=== PATIENT | female | born 1960 | race Caucasian/White ===

== ENCOUNTER 2021-05-27 10:15 | Inpatient (IN) | payer OTHER ==
[2021-05-27] MEDS ORDERED: ASPIRIN 81 MG PO STA (10:37)
[2021-05-27] MEDS ORDERED: NITROGLYCERIN OINT 1 INCH/GM PACKET TOPICAL STA (10:37)
--- NOTE | 2021-05-27 10:40 | ED ---
General Adult HPI - General Chief complaint: Chest Pain Stated complaint: Abd/Chest Pain Time Seen by Provider: 05/27/21 10:31 Source: patient, RN notes reviewed, old records reviewed Mode of arrival: ambulatory Limitations: no limitations - History of Present Illness Initial comments: This is a 60-year-old female who came to the emergency department complaining of chest pain. Patient states started last night after she had dinner and she assumed it was the flu. Patient states the pain is in the center of her chest she was sweating and nauseated. Patient states she had some discomfort in the left arm but is not there anymore. Patient denies any radiation to the back or jaw. Patient denies any difficulty breathing shortness of breath. Patient denies any past medical history. Patient denies any family history. Patient denies any smoking history. Patient denies any recent fever chills or cough per patient denies any abdominal pain. Patient denies any other problems at this time. - Related Data Allergies Allergy/AdvReac Type Severity Reaction Status Date / Time No Known Allergies Allergy Verified 05/27/21 10:21 Review of Systems ROS Statement: Those systems with pertinent positive or pertinent negative responses have been documented in the HPI. ROS Other: All systems not noted in ROS Statement are negative. Past Medical History Past Medical History: No Reported History History of Any Multi-Drug Resistant Organisms: None Reported Past Surgical History: No Surgical Hx Reported Past Psychological History: No Psychological Hx Reported Smoking Status: Never smoker Past Alcohol Use History: None Reported Past Drug Use History: None Reported General Exam - General Exam Comments Initial Comments: GENERAL: Patient is well-developed and well-nourished. Patient is nontoxic and well- hydrated and is in mild distress. ENT: Neck is soft and supple. No significant lymphadenopathy is noted. Oropharynx is clear. Moist mucous membranes. Neck has full range of motion without eliciting any pain. EYES: The sclera were anicteric and conjunctiva were pink and moist. Extraocular movements were intact and pupils were equal round and reactive to light. Eyelids were unremarkable. PULMONARY: Unlabored respirations. Good breath sounds bilaterally. No audible rales rhonchi or wheezing was noted. CARDIOVASCULAR: There is a regular rate and rhythm without any murmurs gallops or rubs. ABDOMEN: Soft and nontender with normal bowel sounds. No palpable organomegaly was noted. There is no palpable pulsatile mass. SKIN: Skin is clear with no lesions or rashes and otherwise unremarkable. NEUROLOGIC: Patient is alert and oriented x3. Cranial nerves II through XII are grossly intact. Motor and sensory are also intact. Normal speech, volume and content. Symmetrical smile. MUSCULOSKELETAL: Normal extremities with adequate strength and full range of motion. No lower extremity swelling or edema. No calf tenderness. LYMPHATICS: No significant lymphadenopathy is noted PSYCHIATRIC: Normal psychiatric evaluation. Limitations: no limitations Course Vital Signs 05/27/21 05/27/21 10:22 10:34 Temperature 97.2 F L Pulse Rate 108 H 84 Respiratory 18 18 Rate Blood Pressure 120/76 118/86 O2 Sat by Pulse 98 100 Oximetry Medical Decision Making - Medical Decision Making EKG shows sinus tachycardia 104 bpm WA interval 230 QRS is 90 QT interval 360 QTC is 473. Patient's EKG showed ST segment elevation V3 V4 and V5 with slight ST segment depression in leads 3 and aVF. As soon as EKG was done I called a STEMI overhead. Patient was taken to the catheterization lab. - Lab Data Result diagrams: 05/27/21 10:48 05/27/21 10:48 Lab Results 05/27/21 05/27/21 05/27/21 Range/Units 10:48 10:48 10:48 WBC 13.5 H (3.8-10.6) k/uL RBC 4.42 (3.80-5.40) m/uL Hgb 14.2 (11.4-16.0) gm/dL Hct 41.2 (34.0-46.0) % MCV 93.2 (80.0-100.0) fL MCH 32.2 (25.0-35.0) pg MCHC 34.5 (31.0-37.0) g/dL RDW 13.1 (11.5-15.5) % Plt Count 322 (150-450) k/uL MPV 7.8 Neutrophils % 90 % Lymphocytes % 5 % Monocytes % 4 % Eosinophils % 1 % Basophils % 0 % Neutrophils # 12.2 H (1.3-7.7) k/uL Lymphocytes # 0.7 L (1.0-4.8) k/uL Monocytes # 0.5 (0-1.0) k/uL Eosinophils # 0.1 (0-0.7) k/uL Basophils # 0.0 (0-0.2) k/uL Sodium 137 (137-145) mmol/L Potassium 4.3 (3.5-5.1) mmol/L Chloride 105 (98-107) mmol/L Carbon Dioxide 24 (22-30) mmol/L Anion Gap 8 mmol/L BUN 19 H (7-17) mg/dL Creatinine 0.56 (0.52-1.04) mg/dL Est GFR (CKD-EPI)AfAm >90 (>60 ml/min/1.73 sqM) Est GFR (CKD-EPI)NonAf >90 (>60 ml/min/1.73 sqM) Glucose 165 H (74-99) mg/dL Calcium 9.9 (8.4-10.2) mg/dL Magnesium 1.9 (1.6-2.3) mg/dL Total Bilirubin 0.6 (0.2-1.3) mg/dL AST 261 H (14-36) U/L ALT 48 H (4-34) U/L Alkaline Phosphatase 213 H (38-126) U/L Total Protein 7.1 (6.3-8.2) g/dL Albumin 4.2 (3.5-5.0) g/dL Coronavirus (PCR) Not Detected (Not Detectd) Critical Care Time Critical Care Time: Yes Total Critical Care Time: 35 Disposition Clinical Impression: ST elevation myocardial infarction (STEMI) Disposition: ADMITTED IP TO THIS HOSP Referrals: None,Stated [Primary Care Provider] - 1-2 days Time of Disposition: 10:40
[2021-05-27] MEDS ORDERED: SODIUM CHLORIDE 0.9% 1,000 ML IV ONE (11:00)
[2021-05-27] MEDS ORDERED: fentaNYL (PF) 50 MCG/ML 2 ML AMP IV ONE (11:04)
[2021-05-27] MEDS: HEPARIN SODIUM 1,000 UN/ML (10ML VL) IV ONE ×3 (11:04→11:50)
[2021-05-27] MEDS ORDERED: MIDAZOLAM 2 MG/2 ML VIAL IV ONE (11:04)
[2021-05-27] MEDS ORDERED: LIDOCAINE 1% INJ 10MG/ML (20 ML MDV) SQ ONE (11:04)
[2021-05-27] MEDS ORDERED: VERAPAMIL SYRINGE (5 MG/10 ML) INTRAARTER ONE (11:05)
--- NOTE | 2021-05-27 11:07 | P.CRDCN ---
History of Present Illness Consult date: 05/27/21 History of present illness: HISTORY OF PRESENT ILLNESS: This is a 60-year-old female who denies any significant past medical history. 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 We have been asked to see the patient in consultation for STEMI. Patient examined at the bedside in the emergency room. Patient states yesterday she ate chicken Rober for dinner and shortly afterwards began to feel unwell. She states that she initially thought she had food poisoning as she was nauseous and diaphoretic. She states she began having pain in the middle of her chest that felt like a heavy pressure. She denies feeling short of breath. She denied having any radiation of the pain. Patient states the pain persisted most of the night and she decided to come to the emergency room for further evaluation. He should have an EKG performed upon arrival to the emergency room revealing ST elevation in anterior lateral leads and a STEMI was called. EKG reveals sinus mechanism with ST elevation in anterior lateral leads Chest xray available at the time of this dictation Laboratory data: Unavailable at the time of this dictation Patient takes no cardiac medications on an outpatient basis No previous echocardiogram or cardiac catheterization available for review REVIEW OF SYSTEMS: At the time of my exam: CONSTITUTIONAL: Denies fever or chills. HEENT: Denies blurred vision, vision changes, or eye pain. Denies hemoptysis CARDIOVASCULAR: Denies chest pain. Denies orthopnea. Denies PND. Denies palpitations RESPIRATORY: Denies shortness of breath. GASTROINTESTINAL: Denies abdominal pain. Denies nausea or vomiting. HEMATOLOGIC: Denies bleeding disorders. GENITOURINARY: Denies any blood in urine. SKIN: Denies pruitis. Denies rash. PHYSICAL EXAM: VITAL SIGNS: Reviewed. GENERAL: Well-developed in no acute distress. HEENT: Head is normocephalic. Pupils are equal, round. Sclerae anicteric. Mucous membranes of the mouth are moist. Neck supple. No JVD or thyromegaly LUNGS: Respirations even and unlabored. Lungs essentially clear to auscultation bilaterally. HEART: Regular rate and rhythm. S1 and S2 heard. ABDOMEN: Soft. Nondistended. Nontender. EXTREMITIES: Normal range of motion. No clubbing or cyanosis. Peripheral pulses intact. No lower extremity edema NEUROLOGIC: Awake and alert. Oriented x 3. ASSESSMENT: Anterolateral STEMI PLAN: Patient was evaluated in the ER after STEMI alert was activated. Patient was being transported to the color laboratory technician upon my arrival to the ER room. Per the ER nurse, the patient received aspirin in the ER but did not receive heparin bolus or lipitor. This was relayed to the color laboratory technician staff upon arrival to the color laboratory technician so patient can receive these medications MIRANDA. Patient agreeable to undergo emergent cardiac catheterization with Dr. Smart Will obtain 2D echo post cath Further recommendations pending patient course Nurse practitioner note has been reviewed by physician. Signing provider agrees with the documented findings, assessment, and plan of care. Past Medical History Past Medical History: No Reported History History of Any Multi-Drug Resistant Organisms: None Reported Past Surgical History: No Surgical Hx Reported Past Psychological History: No Psychological Hx Reported Smoking Status: Never smoker Past Alcohol Use History: None Reported Past Drug Use History: None Reported Medications and Allergies Allergies Allergy/AdvReac Type Severity Reaction Status Date / Time No Known Allergies Allergy Verified 05/27/21 10:21 Physical Exam Vitals: Vital Signs Temp Pulse Resp BP Pulse Ox 05/27/21 10:22 97.2 F L 108 H 18 120/76 98 Intake and Output 05/26/21 05/27/21 05/27/21 22:59 06:59 14:59 Other: Weight 39.463 kg Results Intake and Output 05/26/21 05/27/21 05/27/21 22:59 06:59 14:59 Other: Weight 39.463 kg Patient Weight 05/28/21 06:59 Weight 39.463 kg
[2021-05-27] MEDS ORDERED: ATORVASTATIN 80 MG TAB PO ONE (11:10)
[2021-05-27] MEDS ORDERED: HEPARIN SODIUM 1,000 UN/ML (10ML VL) IVP ONE (11:11)
[2021-05-27] MEDS ORDERED: NOREPINEPHRINE 4 MG in SODIUM CHLORIDE 0.9% 250 ML IV ONE (11:14)
[2021-05-27 11:15] LABS: Basophils % (A) 0 %; Eosinophils # (A) 0.1 k/uL (0-0.7); Eosinophils % (A) 1 %; HCT 41.2 % (34.0-46.0); HGB 14.2 gm/dL (11.4-16.0); Lymphocytes # (A) 0.7 k/uL (1.0-4.8); Lymphocytes % (A) 5 %; MCH 32.2 pg (25.0-35.0); MCHC 34.5 g/dL (31.0-37.0); MCV 93.2 fL (80.0-100.0); Mean Platelet Volume 7.8; Monocytes # (A) 0.5 k/uL (0-1.0); Monocytes % (A) 4 %; Neutrophils # (A) 12.2 k/uL (1.3-7.7); Neutrophils % (A) 90 %; Platelet Count 322 k/uL (150-450); RBC 4.42 m/uL (3.80-5.40); RDW 13.1 % (11.5-15.5); WBC 13.5 k/uL (3.8-10.6)
[2021-05-27 11:17] LABS: ALT 48 U/L (4-34); AST 261 U/L (14-36); African American GFR (CKD) >90 (>60 ml/min/1.73 sqM); Albumin 4.2 g/dL (3.5-5.0); Alkaline Phosphatase 213 U/L (38-126); Anion Gap 8 mmol/L; Blood Urea Nitrogen 19 mg/dL (7-17); Calcium 9.9 mg/dL (8.4-10.2); Carbon Dioxide 24 mmol/L (22-30); Chloride 105 mmol/L (98-107); Glucose 165 mg/dL (74-99); INR 0.9 (<1.2); Magnesium 1.9 mg/dL (1.6-2.3); Non-African American GFR(CKD) >90 (>60 ml/min/1.73 sqM); Potassium 4.3 mmol/L (3.5-5.1); Prothrombin Time 10.1 sec (9.0-12.0); Sodium 137 mmol/L (137-145); Total Bilirubin 0.6 mg/dL (0.2-1.3); Total Protein 7.1 g/dL (6.3-8.2)
[2021-05-27] MEDS ORDERED: PRASUGREL 10 MG TAB PO ONE (11:22)
[2021-05-27] MEDS ORDERED: ONDANSETRON 4 MG/2 ML VIAL IVP ONE (11:23)
[2021-05-27 11:30] LABS: Partial Thromboplastin Time 21.2 sec (22.0-30.0)
[2021-05-27] MEDS ORDERED: NITROGLYCERIN 1000MCG/10ML SYRINGE INTRAARTER ONE (11:30)
--- NOTE | 2021-05-27 11:32 | XR ---
EXAMINATION TYPE: XR chest 1V portable DATE OF EXAM: 05/27/2021 COMPARISON: NONE HISTORY: Shortness of breath and chest pain TECHNIQUE: Single frontal view of the chest is obtained. FINDINGS: There is no pleural effusion or pneumothorax seen. Question minimal patchy basilar density . The cardiac silhouette size is within normal limits. Interstitium appears prominently. Patient is r otated. There are overlying leads. The osseous structures are intact. IMPRESSION: There is some interstitial changes within the lungs, correlate for pneumonia, follow up suggested
[2021-05-27] MEDS ORDERED: IOPAMIDOL-370 125ML BTL INJ ONE (11:57)
[2021-05-27] MEDS ORDERED: NITROGLYCERIN-D5W PMX 50 MG in DEXTROSE/WATER 1 250ML.BAG IV ONE (11:59)
[2021-05-27] MEDS ORDERED: FUROSEMIDE 10 MG/ML 4 ML VIAL IV ONE (12:10)
[2021-05-27] MEDS ORDERED: NITROGLYCERIN-D5W PMX 50 MG in DEXTROSE/WATER 1 250ML.BAG IV SCH (12:15)
[2021-05-27 12:38] LABS: Glucose,Whole Blood 208 mg/dL (75-99)
[2021-05-27] MEDS ORDERED: FUROSEMIDE 10 MG/ML 4 ML VIAL IV STA (12:43)
--- NOTE | 2021-05-27 13:29 | XR ---
EXAMINATION TYPE: XR chest 1V portable DATE OF EXAM: 05/27/2021 COMPARISON: 05/27/2021 earlier exam INDICATION: Short of breath TECHNIQUE: Single frontal view of the chest is obtained. FINDINGS: The heart size is normal. The pulmonary vasculature is prominent. There is interval development of bilateral lung infiltrates. Correlate for ARDS and atypical pneumoni a IMPRESSION: 1. Diffuse increased infiltrates bilaterally, correlate for ARDS and atypical pneumonia
[2021-05-27] MEDS: NOREPINEPHRINE 4 MG in SODIUM CHLORIDE 0.9% 250 ML IV SCH (13:52)
[2021-05-27] MEDS: ONDANSETRON 4 MG/2 ML VIAL IVP PRN ×2 (13:52→18:58)
--- NOTE | 2021-05-27 14:45 | P.CNPUL ---
History of Present Illness Consult date: 05/27/21 Reason for consult: chest pain, abnormal CXR/CT Chief complaint: Chest pain. History of present illness: Pulmonary consult dated 05/27/2021. 60-year-old female presents to the emergency department on May 27, shruthi clark of chest pain. She saw Dr. Pinto in the emergency department. The patient was evaluated by cardiology, taken to the catheterization laboratory, and had a stent placed in her LAD. She is back in the intensive care unit. Currently, she is on BiPAP, with settings of IPAP 12, EPAP 6, and 60%. The patient was on IV nitroglycerin at 10 mcg/m. Unfortunately, her blood pressure was a bit low, and they were planning to potentially start norepinephrine. Apparently, the patient does not have any past medical history. The patient does not take any medications on a regular basis, and is a lifelong nonsmoker. White count 13.5, hemoglobin 14.2, hematocrit 41.2, platelet count 322,000. PT 10.1, INR 0.9, and PTT is 21.2. Sodium, potassium, chloride, and CO2 are all normal. Anion gap is normal. BUN is 19, with a creatinine 0.56. AST was 261 with an ALT of 48. Troponin was 12.3. Testing for coronavirus was negative. The patient was minute with a diagnosis of anterolateral ST segment elevation myocardial infarction. Chest x-ray, and my opinion show some mild fluid overload. Review of Systems REVIEW OF SYSTEMS: CONSTITUTIONAL: [Negative.] NEUROLOGIC: [ Negative.] HEENT: [ Negative.] CARDIAC: Chest pain. PULMONARY: [Negative.] GI: [Negative.] : [Negative.] RHEUMATOLOGIC: [ Negative.] IMMUNOLOGIC: [ Negative.] ENDOCRINE: [Negative. ] DERMATOLOGIC: [Negative.] Past Medical History Past Medical History: No Reported History History of Any Multi-Drug Resistant Organisms: None Reported Past Surgical History: No Surgical Hx Reported Past Psychological History: No Psychological Hx Reported Smoking Status: Never smoker Past Alcohol Use History: None Reported Past Drug Use History: None Reported Medications and Allergies Home Medications Medication Instructions Recorded Confirmed Type Unable To Assess [Unable to Assess] 05/27/21 05/27/21 History Allergies Allergy/AdvReac Type Severity Reaction Status Date / Time No Known Allergies Allergy Verified 05/27/21 11:31 Physical Exam Osteopathic Statement: *. No significant issues noted on an osteopathic structural exam other than those noted in the History and Physical/Consult. Vitals: Vital Signs Temp Pulse Resp BP Pulse Ox 05/27/21 13:50 124 H 24 96/67 95 05/27/21 13:40 118 H 23 96/75 95 05/27/21 13:30 115 H 24 67/50 95 05/27/21 13:20 112 H 19 67/50 91 L 05/27/21 13:10 118 H 80/61 91 L 05/27/21 13:00 124 H 34 H 93/72 90 L 05/27/21 12:50 128 H 22 93/72 93 L 05/27/21 12:40 97.6 F 125 H 34 H 106/73 84 L 05/27/21 12:34 129 H 33 H 84 L 05/27/21 10:34 84 18 118/86 100 05/27/21 10:22 97.2 F L 108 H 18 120/76 98 Intake and Output 05/26/21 05/27/21 05/27/21 22:59 06:59 14:59 Intake Total 522 Balance 522 Intake: IV 522 .9 kvo 20 Other: # Voids 1 Weight 39.463 kg No acute distress, BiPAP mask in place. The patient is oriented. Does look a bit pale. HEENT examination is grossly unremarkable. Neck supple. Full range of motion. No adenopathy thyromegaly or neck vein distention. Cardiovascular examination reveals regular rhythm rate. S1-S2 normal. No S3 or S4. No discernible murmur noted. Heart sounds are distant. Heart rate about 110 bpm. Lungs reveal mostly clear breath sounds. Scattered rhonchi and crackles are noted. Breath sounds equal bilaterally. Abdomen soft bowel sounds are heard. No masses or tenderness. Extremities are intact. No cyanosis clubbing or edema. Skin is without rash or lesion. Neurologic examination is brief but nonfocal. Results - Laboratory Findings CBC and BMP: 05/27/21 10:48 05/27/21 10:48 PT/INR, D-dimer PT 10.1 sec (9.0-12.0) 05/27/21 10:48 INR 0.9 (<1.2) 05/27/21 10:48 Abnormal lab findings: Abnormal Labs 05/27/21 05/27/21 05/27/21 10:48 10:48 10:48 WBC 13.5 H Neutrophils # 12.2 H Lymphocytes # 0.7 L APTT 21.2 L BUN 19 H Glucose 165 H POC Glucose (mg/dL) AST 261 H ALT 48 H Alkaline Phosphatase 213 H Troponin I 05/27/21 05/27/21 10:48 12:36 WBC Neutrophils # Lymphocytes # APTT BUN Glucose POC Glucose (mg/dL) 208 H AST ALT Alkaline Phosphatase Troponin I 12.300 H* - Diagnostic Findings Chest x-ray: image reviewed Assessment and Plan Assessment: Acute anterolateral ST segment elevation myocardial infarction, status post angiography, with stent placement, in the LAD. Mild congestive heart failure. Hypotension. No significant past medical history. Plan: Plan dated 05/27/2021. The patient's resting comfortably in the intensive care unit. The patient was getting both nitroglycerin, and norepinephrine. The nitroglycerin was held. She was hypotensive. We were going to give her some diuretic, but because of the hypotension, that will be held. We will continue to follow make recommendations where appropriate. Prognosis is guarded. No history of any lung issues. Time with Patient: Greater than 30
[2021-05-27] MEDS ORDERED: FUROSEMIDE 10 MG/ML 2 ML VIAL IV ONE (17:42)
[2021-05-27 17:49] LABS: Glucose,Whole Blood 123 mg/dL (75-99)
[2021-05-27] MEDS ORDERED: NITROGLYCERIN SL TABS 0.4 MG TAB SUBLINGUAL PRN (19:21)
[2021-05-27] MEDS ORDERED: ZOLPIDEM 5 MG TAB PO PRN (19:21)
[2021-05-27] MEDS ORDERED: MAG HYDROX/AL HYDROX/SIMETH 30 ML CUP PO PRN (19:21)
[2021-05-27] MEDS ORDERED: RX INFO: IV CONTRAST WAS GIVEN 1 EACH MISC MISCELLANE PRN (19:21)
[2021-05-27] MEDS ORDERED: ATROPINE SULFATE 0.1 MG/ML 10ML SYRINGE IV PRN (19:21)
--- NOTE | 2021-05-27 20:03 | P.CARDCATH ---
Description of Procedure: PROCEDURES PERFORMED: Left heart catheterization, bilateral coronary angiography, PCI proximal LAD with a 3.0 x 12 stent, wiring of circumflex, Impella CP placement, right femoral angiogram, right femoral arteriotomy closure with Perclose INDICATION: STEMI, cardiogenic shock HISTORY: Patient is a pleasant 60-year-old female who presented with chest pain which started last night and persisted throughout much of the night. Patient cannot get a sleep and finally came to emergency department he was found to have late presenting anterior STEMI. She was also found to be hypotensive in cardiogenic shock. CONSENT:I have discussed the risks, benefits and alternative therapies for the above-mentioned procedure and for both sedation/analgesia as well as necessary blood product administration, if indicated, as they pertain to this patient. The patient has indicated understanding and acceptance of the risks and procedures discussed. PROCEDURE: After the risks, benefits and alternatives of the above mentioned procedure explained in detail with the patient, informed consent was obtained. Patient was taken to the catheterization lab and prepped and draped in usual fashion. 1% lidocaine was used to anesthetize the right radial artery. A 6- [place] sheath was placed in the right radial artery using modified Seldinger technique. Left coronary angiography was performed with a 5-[place] JL 3.5 catheter. Left coronary angiography was performed with 100% LAD stenosis as well as what appear to be a thrombus in the circumflex and patient's blood pressure at the time 70s over 40s. Therefore decision made to place an Impella. Using micropuncture technique and ultrasonic guidance a 6-[place] sheath was placed and confirmed to be in the right femoral artery. Preclose was performed with 2 Perclose at the 2 and 10 Oclock position. A 14-[place] sheath was then placed. Next a 6-[place] pigtail was placed in the left ventricle and this was exchanged for a 0.018 support wire. Next the Impella CP device was inserted into the left ventricle and turned on. Heparin had been given for ACT greater than 250. Next a 6-[place] CLS 3.0 guide was used to engage the left main. A 0.014 BMW wire was advanced into the circumflex however on repeat imaging there was no circumflex thrombus and it appeared to have been embolized very distally. Therefore decision was made to treat the LAD. The 0.014 BMW wire was advanced into the distal LAD. Balloon angioplasty was performed with a 2.5 x 12 mm balloon. Next a 3.0 x 12 mm Xience BEVERLEY was placed. Repeat angiography showed excellent result. Preintervention there was 100% stenosis with IAM 0 flow and postintervention there was 0% stenosis with IAM 3 flow. The wire was pulled and final images were obtained. Femoral angiogram was performed through the sheath which showed that she is to be occlusive with minimal flow down the right leg. Therefore the patient was weaned down to P2 on the Impella and patient appeared to be tolerating well after 10 minutes with pressures 94/80. Therefore the decision was made to remove the Impella. The sheath was removed and Perclose was deployed with hemostasis achieved. Right coronary angiography was performed with a 5-[place] JR5 catheter in various views. A 5-[place] FR5 catheter was inserted into the left ventricle and pressure measurements were obtained. The right radial sheath was removed and a TR band was placed with hemostasis achieved. Patient was transported back to [facility] catheterization holding area with borderline blood pressures. Conscious Sedation: Patient was monitored under the direct supervision of vision of myself for conscious sedation using Versed and fentanyl for a total duration of 72 minutes HEMODYNAMICS: Ao: 80/67 LV: 66/11, LVEDP 18 (on Impella) SELECTIVE CORONARY ARTERIOGRAPHY: LEFT MAIN: The left main is a large caliber vessel which bifurcates into the LAD and circumflex. There is no significant stenosis. LEFT ANTERIOR DESCENDING CORONARY ARTERY: LAD is a large caliber vessel which wraps around to the apex. There is a 100% proximal LAD stenosis. LEFT CIRCUMFLEX CORONARY ARTERY: Left circumflex is a moderate caliber vessel with proximal circumflex 95% stenosis from a thrombus. RIGHT CORONARY ARTERY: The right coronary artery is a small caliber vessel which gives off a PDA and PLV branch and is the dominant vessel. There is no significant stenosis. FINAL IMPRESSION: 1. CAD as described above with 100% LAD stenosis and 95% circumflex stenosis felt to be related to embolization. 2. S/p PCI LAD with a 3.0 x 12mm Xience BEVERLEY, and s/p embolization of circumflex thrombus down stream into a small caliber distal OM branch 3. Cardiogenic shock PLAN: 1. Aggressive risk factor modification per most recent ACC/AHA guidelines. 2. Continue dual antiplatelets for 12 months. 3. Monitor closely in the ICU. Prognosis guarded.
--- NOTE | 2021-05-27 20:45 | P.HPIM ---
History of Present Illness H&P Date: 05/27/21 Chief Complaint: Chest Pain Patient is a 60-year-old female without significant past medical history presents to ER with complaints of chest pain. Patient states that last night she ate chicken Rober for dinner and since then she has been having nauseous and diaphoretic. Patient initially thought it flulike symptoms and food poisoning. Patient is still having heaviness in the chest mainly in the mid retrosternal and heavy pressure which made her come to ER today morning.. He denies any radiation of the pain. Denies any associated shortness of breath. No fever no chills. No cough or sputum production. Denies any recent illnesses. Patient had an EKG in the ER showed ST elevation in the anterior leads and STEMI team was activated. Chest x-ray showed there is some interstitial changes within the lungs. Correlate for pneumonia. Follow-up suggested. Laboratory data showed WBC 13.5 hemoglobin 14.1 platelets 322 lymphocytes 0.7 Sodium 137 potassium 4.3 chloride 105 bicarb is 24 BUN 19 and creatinine 0.56 AST 261 ALT 248 and alk phos 230 troponin 12.3 and coronavirus PCR not detected. Review of Systems Constitutional: Patient denies any fever or chills . No generalized weakness or weight loss. Abdomen: Patient denied nausea vomiting and diarrhea and abdominal pain. Cardiovascular: Patient did have chest pain associated with nausea and diaphoresis. No shortness of breath. No palpitations. No leg swelling.. Respiratory: patient denied any cough or sputum production. No shortness of breath Neurologic: Patient denied any numbness or tingling headache. Musculoskeletal: Patient denies any complaints of joint swelling or deformity. Skin: Negative Psychiatric: Negative Endocrine: No heat or cold intolerance. No recent weight gain. Genitourinary: No dysuria or hematuria. All other 14 point ROS negative except the above Past Medical History Past Medical History: No Reported History History of Any Multi-Drug Resistant Organisms: None Reported Past Surgical History: No Surgical Hx Reported Past Psychological History: No Psychological Hx Reported Smoking Status: Never smoker Past Alcohol Use History: None Reported Past Drug Use History: None Reported - Past Family History Father Family Medical History: Blood Disorder Additional Family Medical History / Comment(s): leukemia, ETOH/alcoholic Medications and Allergies Home Medications Medication Instructions Recorded Confirmed Type No Known Home Medications 05/27/21 05/27/21 History Allergies Allergy/AdvReac Type Severity Reaction Status Date / Time No Known Allergies Allergy Verified 05/27/21 11:31 Physical Exam Vitals: Vital Signs Temp Pulse Resp BP Pulse Ox 05/27/21 15:15 129 H 33 H 82/65 95 05/27/21 15:00 122 H 16 94/72 90 L 05/27/21 14:45 123 H 29 H 99/73 97 05/27/21 14:30 121 H 26 H 91/72 95 05/27/21 14:15 117 H 27 H 90/73 96 05/27/21 14:00 116 H 19 96/67 94 L 05/27/21 13:50 124 H 24 96/67 95 05/27/21 13:40 118 H 23 96/75 95 05/27/21 13:30 115 H 24 67/50 95 05/27/21 13:20 112 H 19 67/50 91 L 05/27/21 13:10 118 H 80/61 91 L 05/27/21 13:00 124 H 34 H 93/72 90 L 05/27/21 12:50 128 H 22 93/72 93 L 05/27/21 12:40 97.6 F 125 H 34 H 106/73 84 L 05/27/21 12:34 129 H 33 H 84 L 05/27/21 10:34 84 18 118/86 100 05/27/21 10:22 97.2 F L 108 H 18 120/76 98 Intake and Output 05/27/21 05/27/21 05/27/21 06:59 14:59 22:59 Intake Total 542 31.778 Output Total 0 0 Balance 542 31.778 Intake: IV 522 .9 kvo 20 Intake, IV Titration 20 31.778 Amount Norepinephrine 4 mg In 11.778 Sodium Chloride 0.9% 250 ml @ 0.05 MCG/KG/MIN 7. 518 mls/hr IV .Q24H [facility] Rx#:[id number] Sodium Chloride 0.9% 1, 20 20 000 ml @ 0 mls/hr IV .[facility] Rx#:[id number] Output: Urine 0 0 Other: # Voids 1 Weight 39.463 kg PHYSICAL EXAMINATION: Patient is lying in the bed comfortably, no acute distress, awake alert and oriented.. HEENT: Normocephalic. Neck is supple. Pupils reactive. Nostrils clear. Oral cavity is moist. Neck reveals no JVD, carotid bruits, or thyromegaly. CHEST EXAMINATION: Trachea is central. Symmetrical expansion. Bibasilar diminished sounds and crackles. No wheezing.. CARDIAC: Normal S1, S2 with no gallops. No murmurs ABDOMEN: Soft. Bowel sounds normal. No organomegaly. No abdominal bruits. Extremities: reveal no edema. No clubbing or cyanosis Neurologically awake, alert, oriented x3 with well-coordinated movements. No focal deficits noted Skin: No rash or skin lesions. Psychiatric: Cooperative. Nonsuicidal Musculoskeletal: No joint swelling or deformity. Normal range of motion. Results CBC & Chem 7: 05/27/21 10:48 05/27/21 10:48 Labs: Abnormal Lab Results - Last 24 Hours (Table) 05/27/21 05/27/21 05/27/21 Range/Units 10:48 10:48 10:48 WBC 13.5 H (3.8-10.6) k/uL Neutrophils # 12.2 H (1.3-7.7) k/uL Lymphocytes # 0.7 L (1.0-4.8) k/uL APTT 21.2 L (22.0-30.0) sec BUN 19 H (7-17) mg/dL Glucose 165 H (74-99) mg/dL POC Glucose (mg/dL) (75-99) mg/dL AST 261 H (14-36) U/L ALT 48 H (4-34) U/L Alkaline Phosphatase 213 H (38-126) U/L Troponin I (0.000-0.034) ng/mL 05/27/21 05/27/21 Range/Units 10:48 12:36 WBC (3.8-10.6) k/uL Neutrophils # (1.3-7.7) k/uL Lymphocytes # (1.0-4.8) k/uL APTT (22.0-30.0) sec BUN (7-17) mg/dL Glucose (74-99) mg/dL POC Glucose (mg/dL) 208 H (75-99) mg/dL AST (14-36) U/L ALT (4-34) U/L Alkaline Phosphatase (38-126) U/L Troponin I 12.300 H* (0.000-0.034) ng/mL Thrombosis Risk Factor Assmnt - DVT/VTE Prophylaxis DVT/VTE Prophylaxis: Pharmacologic Prophylaxis ordered Assessment and Plan Assessment: Acute ST elevated VA status post cardiac catheterization stent placement to the LAD. Acute hypoxic respiratory failure. Patient was on BiPAP post procedure.. Hypotension due to Cardiogenic shock. Requiring pressor support. Elevated liver enzymes Acute CHF. EF not known. DVT prophylaxis. Plan: Patient is being monitored in MICU. Was initially on BiPAP and transition to Ventimask now. Patient is being continued on pressor support with norepi nephrine. Nitro drip has been discontinued. Continue with aspirin, prasugrel and follow-up lipid panel. Repeat CBC and CMP. Cardiology and pulmonary is on board. Continue to follow closely. Time with Patient: Greater than 30
[2021-05-28] MEDS: NOREPINEPHRINE 4 MG in SODIUM CHLORIDE 0.9% 250 ML IV SCH (01:36)
[2021-05-28 03:45] LABS: Basophils % (A) 0 %; Eosinophils # (A) 0.2 k/uL (0-0.7); Eosinophils % (A) 1 %; HCT 42.6 % (34.0-46.0); HGB 14.2 gm/dL (11.4-16.0); Lymphocytes # (A) 1.3 k/uL (1.0-4.8); Lymphocytes % (A) 5 %; MCH 31.4 pg (25.0-35.0); MCHC 33.3 g/dL (31.0-37.0); MCV 94.5 fL (80.0-100.0); Monocytes # (A) 0.5 k/uL (0-1.0); Monocytes % (A) 2 %; Neutrophils # (A) 22.6 k/uL (1.3-7.7); Neutrophils % (A) 92 %; Platelet Count 305 k/uL (150-450); RBC 4.51 m/uL (3.80-5.40); RDW 12.6 % (11.5-15.5); WBC 24.7 k/uL (3.8-10.6)
[2021-05-28 03:54] LABS: Albumin 3.1 g/dL (3.5-5.0); Calcium 8.6 mg/dL (8.4-10.2); Potassium 3.9 mmol/L (3.5-5.1); Total Bilirubin 0.6 mg/dL (0.2-1.3); Total Protein 5.7 g/dL (6.3-8.2)
--- NOTE | 2021-05-28 09:10 | XR ---
EXAMINATION TYPE: XR chest 1V portable DATE OF EXAM: 05/28/2021 COMPARISON: 05/27/2021 HISTORY: Shortness of breath, CHF TECHNIQUE: Single frontal view of the chest is obtained. FINDINGS: There is diffuse interstitial and airspace opacity with partial consolidative opacities in the right lower lobe and left upper and lower lobes. There is been mild interval worsening compared to the previous. The graft the heart size is not enlarged and the pulmonary vasculature does not appe ar cephalized. There is no pneumothorax. The osseous structures are intact IMPRESSION: Mild interval worsening in the acute cardiopulmonary disease. Findings are nonspecific a nd could reflect an acute inflammatory process or pulmonary edema. Short-term follow-up and clinical correlation is recommended.
[2021-05-28] MEDS: ASPIRIN 81 MG PO SCH (10:02)
[2021-05-28] MEDS: PRASUGREL 10 MG TAB PO SCH (10:02)
[2021-05-28] MEDS ORDERED: FUROSEMIDE 10 MG/ML 4 ML VIAL IV STA (11:09)
--- NOTE | 2021-05-28 11:43 | P.PN ---
Subjective Progress Note Date: 05/28/21 Principal diagnosis: CAD Pulmonary consult dated 05/27/2021. 60-year-old female presents to the emergency department on May 27, complaining of chest pain. She saw Dr. Pinto in the emergency department. The patient was evaluated by cardiology, taken to the catheterization laboratory, and had a stent placed in her LAD. She is back in the intensive care unit. Currently, she is on BiPAP, with settings of IPAP 12, EPAP 6, and 60%. The patient was on IV nitroglycerin at 10 mcg/m. Unfortunately, her blood pressure was a bit low, and they were planning to potentially start norepinephrine. Apparently, the patient does not have any past medical history. The patient springer s not take any medications on a regular basis, and is a lifelong nonsmoker. White count 13.5, hemoglobin 14.2, hematocrit 41.2, platelet count 322,000. PT 10.1, INR 0.9, and PTT is 21.2. Sodium, potassium, chloride, and CO2 are all normal. Anion gap is normal. BUN is 19, with a creatinine 0.56. AST was 261 with an ALT of 48. Troponin was 12.3. Testing for coronavirus was negative. The patient was minute with a diagnosis of anterolateral ST segment elevation myocardial infarction. Chest x-ray, and my opinion show some mild fluid overload. Progress note dated 05/28/2021. 60-year-old female status post catheterization and stent placement in LAD. Currently, the patient's in the intensive care unit. She did not use BiPAP last night. She is on a nonrebreather mask. She's getting saline at KVO. She is on norepinephrine at 12 mcg/m. Her chest x-ray looks wet. The patient will get Lasix 40 mg IV push times one. White count 24.7, hemoglobin 14.2, hematocrit 42.6, platelet count 305,000. Sodium 134, potassium 3.9, chlorides 106, CO2 18, anion gap 10, BUN 26, creatinine 0.89. AST 695, ALT 86. Chest x-ray is consistent with fluid overload/CHF. Objective - Vital Signs Vital signs: Vital Signs Temp 98.9 F 05/28/21 08:00 Pulse 126 H 05/28/21 09:15 Resp 25 H 05/28/21 09:15 BP 89/62 11/06/21 09:15 Pulse Ox 93 L 05/28/21 09:15 Intake & Output 05/27/21 05/28/21 05/28/21 18:59 06:59 18:59 Intake Total 662.896 453.104 60 Output Total 0 600 0 Balance 662.896 -146.896 60 Weight 39.463 kg Intake: IV 582 240 60 .9 kvo 80 240 60 Intake, IV Titration 80.896 213.104 Amount Norepinephrine 4 mg In 40.896 213.104 Sodium Chloride 0.9% 250 ml @ 0.05 MCG/KG/MIN 7. 518 mls/hr IV .Q24H [facility] Rx#:[id number] Sodium Chloride 0.9% 1, 40 000 ml @ 0 mls/hr IV .[employer] [facility] Rx#:[id number] Output: Urine 0 600 0 Other: Voiding Method Bedpan Bedpan Bedpan Incontinent External Catheter # Voids 2 ABP, PAP, CO, CI - Last Documented Arterial Blood Pressure 99/51 - Exam No acute distress, the patient is wearing a nonrebreather mass. No obvious respiratory distress or difficulty. HEENT examination is grossly unremarkable. Neck supple. Full range of motion. No adenopathy thyromegaly or neck vein distention. Cardiovascular examination reveals regular rhythm rate. S1-S2 normal. No S3 or S4. No discernible murmur noted. Heart sounds are distant. Heart rate about 105 bpm. Lungs reveal basilar crackles. Coarse rhonchi are noted. No wheezes. Breath sounds equal bilaterally. Abdomen soft bowel sounds are heard. No masses or tenderness. Extremities are intact. No cyanosis clubbing or edema. Skin is without rash or lesion. Neurologic examination is brief but nonfocal. - Labs CBC & Chem 7: 05/28/21 03:25 05/28/21 03:25 Labs: Abnormal Lab Results - Last 24 Hours (Table) 05/27/21 05/27/21 05/27/21 Range/Units 10:48 12:36 17:47 WBC (3.8-10.6) k/uL Neutrophils # (1.3-7.7) k/uL Sodium (137-145) mmol/L Carbon Dioxide (22-30) mmol/L BUN (7-17) mg/dL Glucose (74-99) mg/dL POC Glucose (mg/dL) 208 H 123 H (75-99) mg/dL AST (14-36) U/L ALT (4-34) U/L Alkaline Phosphatase (38-126) U/L Troponin I 12.300 H* (0.000-0.034) ng/mL Total Protein (6.3-8.2) g/dL Albumin (3.5-5.0) g/dL 05/28/21 05/28/21 Range/Units 03:25 03:25 WBC 24.7 H (3.8-10.6) k/uL Neutrophils # 22.6 H (1.3-7.7) k/uL Sodium 134 L (137-145) mmol/L Carbon Dioxide 18 L (22-30) mmol/L BUN 26 H (7-17) mg/dL Glucose 138 H (74-99) mg/dL POC Glucose (mg/dL) (75-99) mg/dL AST 695 H (14-36) U/L ALT 86 H (4-34) U/L Alkaline Phosphatase 156 H (38-126) U/L Troponin I (0.000-0.034) ng/mL Total Protein 5.7 L (6.3-8.2) g/dL Albumin 3.1 L (3.5-5.0) g/dL Assessment and Plan Assessment: Acute anterolateral ST segment elevation myocardial infarction, status post angiography, with stent placement, in the LAD. Mild congestive heart failure. Hypotension. No significant past medical history. Plan: Plan dated 05/27/2021. The patient's resting comfortably in the intensive care unit. The patient was getting both nitroglycerin, and norepinephrine. The nitroglycerin was held. She was hypotensive. We were going to give her some diuretic, but because of the hypotension, that will be held. We will continue to follow make recommendations where appropriate. Prognosis is guarded. No history of any lung issues. Plan dated 05/28/2021. Currently, the patient's on norepinephrine at 12 mcg/m. The patient will get Lasix 40 mg IV push because a chest x-ray appears to show some fluid overload/CHF. In addition, patient remains on a nonrebreather mask. She is getting saline at KVO. Additional recommendations and suggestions are forthcoming. Prognosis is guarded. Labs, x-rays, and medications are all rev iewed. Time with Patient: Greater than 30
--- NOTE | 2021-05-28 12:42 | P.PN ---
Subjective HISTORY OF PRESENT ILLNESS: This is a 60-year-old female who denies any significant past medical history. Patient does not follow with a research leader. We have been asked to see the patient in consultation for STEMI. Patient examined at the bedside in the emergency room. Patient states yesterday she ate chicken Rober for dinner and shortly afterwards began to feel unwell. She states that she initially thought she had food poisoning as she was nauseous and diaphoretic. She states she began having pain in the middle of her chest that felt like a heavy pressure. She denies feeling short of breath. She denied having any radiation of the pain. Patient states the pain persisted most of the night and she decided to come to the emergency room for further evaluation. He should have an EKG performed upon arrival to the emergency room revealing ST elevation in anterior lateral leads and a STEMI was called. 05/28 Patient seen and examined. Patient denies any chest pain or pressure. Still feels nauseous. Have had some difficulties measuring urine output with prior Barba placement not being adequate. Blood pressures have been borderline however pressures by arterial line with a map mainly of approximately 65. She was placed on low dose of norepinephrine. AST and ALTs mildly elevated. She was given additional dose of Lasix this morning with chest x-ray consistent with fluid overload. Echo pending this morning. Remains sinus tachycardia with heart rates 120s. PHYSICAL EXAM: VITAL SIGNS: Reviewed. GENERAL: Well-developed in no acute distress. HEENT: Head is normocephalic. Pupils are equal, round. Sclerae anicteric. Mucous membranes of the mouth are moist. Neck supple. No JVD or thyromegaly LUNGS: Bilateral crackles throughout HEART: tachycardic Regular rate and rhythm. S1 and S2 heard. ABDOMEN: Soft. Nondistended. Nontender. EXTREMITIES: Normal range of motion. No clubbing or cyanosis. Peripheral pulses intact. No lower extremity edema NEUROLOGIC: Awake and alert. Oriented x 3. ASSESSMENT: 1. Anterolateral STEMI status post proximal LAD PCI likely embolic in etiology with additional thrombus noted and circumflex which had embolized distally 2. Cardiogenic shock, s/p Impella CP placement during catheterization however complicated by no flow to RLE 3. Sinus tachycardia, compensatory related to cardiogenic shock 4. Acute on chronic systolic heart failure PLAN: Patient with late presenting anterior lateral STEMI complicated by cardiogenic shock. It appears most likely embolic in etiology with additional thrombus noted in circumflex which was then embolized distally. She does appear to be in cardiogenic shock currently however we will avoid inotropes at this time. May consider starting if patient's urine output drops. She still appears to be in heart failure with pulmonary edema. Monitor response of Lasix. Patient has been on a low-dose of norepinephrine however we will discontinue and patient initially did not have any significant hypertension with systolics normally in the 90s to 100s. Goal map of around 60-65 and monitor response. Objective - Vital Signs Vital signs: Vital Signs Temp 98.9 F 05/28/21 08:00 Pulse 126 H 05/28/21 09:15 Resp 25 H 05/28/21 09:15 BP 89/62 05/28/21 09:15 Pulse Ox 93 L 05/28/21 09:15 Intake & Output 05/27/21 05/28/21 05/28/21 18:59 06:59 18:59 Intake Total 662.896 453.104 314 Output Total 0 600 0 Balance 662.896 -146.896 314 Weight 39.463 kg Intake: IV 582 240 60 .9 kvo 80 240 60 Intake, IV Titration 80.896 213.104 254 Amount Norepinephrine 4 mg In 40.896 213.104 254 Sodium Chloride 0.9% 250 ml @ 0.05 MCG/KG/MIN 7. 518 mls/hr IV .Q24H [facility] Rx#:[id number] Sodium Chloride 0.9% 1, 40 000 ml @ 0 mls/hr IV .[facility] Rx#:[id number] Output: Urine 0 600 0 Other: Voiding Method Bedpan Bedpan Bedpan Incontinent External Catheter # Voids 2 ABP, PAP, CO, CI - Last Documented Arterial Blood Pressure 99/51 - Labs CBC & Chem 7: 05/28/21 03:25 05/28/21 03:25 Labs: Abnormal Lab Results - Last 24 Hours (Table) 05/27/21 05/27/21 05/28/21 Range/Units 12:36 17:47 03:25 WBC 24.7 H (3.8-10.6) k/uL Neutrophils # 22.6 H (1.3-7.7) k/uL Sodium (137-145) mmol/L Carbon Dioxide (22-30) mmol/L BUN (7-17) mg/dL Glucose (74-99) mg/dL POC Glucose (mg/dL) 208 H 123 H (75-99) mg/dL AST (14-36) U/L ALT (4-34) U/L Alkaline Phosphatase (38-126) U/L Total Protein (6.3-8.2) g/dL Albumin (3.5-5.0) g/dL 05/28/21 Range/Units 03:25 WBC (3.8-10.6) k/uL Neutrophils # (1.3-7.7) k/uL Sodium 134 L (137-145) mmol/L Carbon Dioxide 18 L (22-30) mmol/L BUN 26 H (7-17) mg/dL Glucose 138 H (74-99) mg/dL POC Glucose (mg/dL) (75-99) mg/dL AST 695 H (14-36) U/L ALT 86 H (4-34) U/L Alkaline Phosphatase 156 H (38-126) U/L Total Protein 5.7 L (6.3-8.2) g/dL Albumin 3.1 L (3.5-5.0) g/dL
[2021-05-28 12:50] LABS: ABG Base Excess -3.8 mmol/L; ABG HCO3 20 mmol/L (21-25); ABG Oxygen Saturation 89.8 % (94-97); ABG PCO2 28 mmHg (35-45); ABG PH 7.46 (7.35-7.45); ABG TCO2 21 mmol/L (19-24)
[2021-05-28 12:51] LABS: ABG PO2 57 mmHg (83-108)
[2021-05-28 13:00] VITALS: BMI 19.5
[2021-05-28] MEDS: ONDANSETRON 4 MG/2 ML VIAL IVP PRN ×2 (13:01→18:55)
[2021-05-28 13:35] LABS: Chol/HDL Ratio 3.09 Ratio; HDL Cholesterol 66.7 mg/dL (40.00-60.00); LDL Cholesterol,Calculated 122.7 mg/dL (0.0-131.0); Triglycerides 82.8 mg/dL (0.00-149.00); VLDL Calculation 16.56 mg/dL (5.00-40.00)
[2021-05-28] MEDS: FUROSEMIDE 10 MG/ML 4 ML VIAL IV SCH ×2 (14:12→20:24)
--- NOTE | 2021-05-28 17:00 | ECHOF ---
Referral Reason:STEMI MEASUREMENTS -------- HEIGHT: 137.2 cm WEIGHT: 39.5 kg BP: RVIDd: 3.1 cm (< 3.3) IVSd: 0.9 cm (0.6 - 1.1) LVIDd: 2.7 cm (3.9 - 5.3) LVPWd: 1.0 cm (0.6 - 1.1) IVSs: 1.0 cm LVIDs: 2.4 cm LVPWs: 1.0 cm LA Diam: 3.2 cm (2.7 - 3.8) MV EXCURSION: 21.475 mm (> 18.000) MV EF SLOPE: 103 mm/s (70 - 150) EPSS: 1.6 cm MV E Trent: 0.49 m/s MV DecT: 162 ms MV A Trent: 0.49 m/s MV E/A Ratio: 0.99 RAP: 5.00 mmHg RVSP: 29.66 mmHg FINDINGS -------- Sinus rhythm. This was a techncally difficult study with suboptimal views, , Lumason utilized for enhancement of im ages. Left ventricular wall thickness is normal. There is severe global hypokinesis of LV . Overall lef t ventricular systolic function is severely impaired with, an EF < 20%. Basal Segment Rex o nly. The right ventricle is normal in size. The left atrial size is normal. The right atrial size is normal. The aortic valve is trileaflet, and appears structurally normal. No aortic stenosis or regurgitation. Mild mitral regurgitation is present. Mild tricuspid regurgitation present. Right ventricular systolic pressure is normal at < 35 mmHg. There is no pulmonic regurgitation present. The aortic root size is normal. There is no pericardial effusion. CONCLUSIONS -------- 1. Left ventricular wall thickness is normal. 2. There is severe global hypokinesis of LV . 3. Overall left ventricular systolic function is severely impaired with, an EF < 20%. 4. Basal Segment Rex only. 5. The right ventricle is normal in size. 6. The left atrial size is normal. 7. The right atrial size is normal. 8. The aortic valve is trileaflet, and appears structurally normal. No aortic stenosis or regurgitati on. 9. Mild mitral regurgitation is present. 10. Mild tricuspid regurgitation present. 11. There is no pulmonic regurgitation present. 12. The aortic root size is normal. 13. There is no pericardial effusion. CARDROOM MANAGER: Nely Marquez RDCS
[2021-05-28] MEDS ORDERED: IBUPROFEN 200 MG TAB PO STA (23:16)
[2021-05-29] MEDS: NOREPINEPHRINE 4 MG in SODIUM CHLORIDE 0.9% 250 ML IV SCH (02:10)
--- NOTE | 2021-05-29 06:44 | XR ---
EXAMINATION TYPE: XR chest 1V portable DATE OF EXAM: 05/29/2021 COMPARISON: 05/28/2021 HISTORY: Shortness of breath TECHNIQUE: Single frontal view of the chest is obtained. FINDINGS: There is slight improvement in the infiltrate in the right upper lung zone but interval wo rsening in the infiltrate in the left upper lung zone and in the lung bases bilaterally. The heart is not enlarged. There is no pneumothorax. The osseous structures are intact. IMPRESSION: Moderate interval worsening in the bilateral lung infiltrates. The question is raised of developing pleural effusions.
[2021-05-29] MEDS: FUROSEMIDE 10 MG/ML 4 ML VIAL IV SCH ×3 (06:53→20:58)
[2021-05-29 06:59] LABS: African American GFR (CKD) >90 (>60 ml/min/1.73 sqM); Anion Gap 6 mmol/L; Blood Urea Nitrogen 28 mg/dL (7-17); Calcium 8.2 mg/dL (8.4-10.2); Carbon Dioxide 25 mmol/L (22-30); Chloride 97 mmol/L (98-107); Glucose 100 mg/dL (74-99); Non-African American GFR(CKD) >90 (>60 ml/min/1.73 sqM); Potassium 4.4 mmol/L (3.5-5.1); Sodium 128 mmol/L (137-145)
[2021-05-29 07:41] LABS: Basophils % (A) 0 %; Eosinophils # (A) 0.1 k/uL (0-0.7); Eosinophils % (A) 1 %; HCT 39.4 % (34.0-46.0); HGB 13.2 gm/dL (11.4-16.0); Lymphocytes % (A) 7 %; MCH 31.1 pg (25.0-35.0); MCHC 33.5 g/dL (31.0-37.0); MCV 92.8 fL (80.0-100.0); Mean Platelet Volume 8.2; Monocytes # (A) 0.5 k/uL (0-1.0); Monocytes % (A) 4 %; Neutrophils % (A) 89 %; Platelet Count 217 k/uL (150-450); RBC 4.25 m/uL (3.80-5.40); RDW 12.6 % (11.5-15.5); WBC 14.7 k/uL (3.8-10.6)
[2021-05-29] MEDS: ASPIRIN 81 MG PO SCH (09:42)
[2021-05-29] MEDS: PRASUGREL 10 MG TAB PO SCH (09:42)
[2021-05-29] MEDS: MIDODRINE 5 MG TAB PO SCH ×2 (12:08→18:36)
--- NOTE | 2021-05-29 13:58 | P.PN ---
Subjective Progress Note Date: 05/29/21 Principal diagnosis: Shortness of breath, hypoxia On 05/29/2021 patient seen in follow-up in intensive care unit, she is awake and alert, she is on a nonrebreather mask, and she has been wearing BiPAP support intermittently, she remains on IV diuretics with Lasix 40 mg 3 times daily, she is -1.6 L net fluid balance, her chest x-ray today shows worsened pulmonary infiltrates. Her serum sodium is 128, potassium is 4.4, chloride is 97, BUN is 28 creatinine 0.68. White count is improved and is down to 14.7, hemoglobin is 13.2. Patient has significant chest pain. Patient has had some low blood pressures with systolic in the 70s and 80s, and diastolic in the 50s, she will be started on midodrine. Cardiology is following, does not recommend any initiation of inotropes unless the urine output significantly drops, patient has sinus tachycardia which is thought to be compensatory to cardiogenic shock. Cardiology recommends repeat arterial pressure around 55 or better as low as patient is asymptomatic. Patient continues on aspirin and Effient. Echocardiogram has been reviewed showing severe global hypokinesis and left ventricular systolic function of less than 20%. Objective - Vital Signs Vital signs: Vital Signs Temp 98.7 F 05/29/21 08:00 Pulse 110 H 05/29/21 11:00 Resp 28 H 05/29/21 11:00 BP 80/56 05/29/21 11:00 Pulse Ox 95 05/29/21 11:00 Intake & Output 05/28/21 05/29/21 05/29/21 19:59 06:59 18:59 Intake Total 340 Output Total 975 Balance -635 Weight Intake: IV 100 .9 kvo 100 Intake, IV Titration Amount Norepinephrine 4 mg In Sodium Chloride 0.9% 250 ml @ 0.05 MCG/KG/MIN 7. 518 mls/hr IV .Q24H [facility] Rx#:[id number] Oral 240 Output: Urine 975 Other: Voiding Method Bedpan ABP, PAP, CO, CI - Last Documented Arterial Blood Pressure 02/23 - Exam GENERAL EXAM: Alert, very pleasant, 52-year-old white female, on 100% nonrebrea ther mask alternating with BiPAP support with FiO2 of 60%, comfortable in no apparent distress. HEAD: Normocephalic/atraumatic. EYES: Normal reaction of pupils, equal size. Conjunctiva pink, sclera white. NOSE: Clear with pink turbinates. THROAT: No erythema or exudates. NECK: No masses, no JVD, no thyroid enlargement, no adenopathy. CHEST: No chest wall deformity. Symmetrical expansion. LUNGS: Equal air entry with bibasilar crackles CVS: Regular rate and rhythm, normal S1 and S2, no gallops, no murmurs, no rubs ABDOMEN: Soft, nontender. No hepatosplenomegaly, normal bowel sounds, no guard ing or rigidity. EXTREMITIES: No clubbing, no edema, no cyanosis, 2+ pulses and upper and lower extremities. MUSCULOSKELETAL: Muscle strength and tone normal. SPINE: No scoliosis or deformity SKIN: No rashes CENTRAL NERVOUS SYSTEM: Alert and oriented -3. No focal deficits, tone is normal in all 4 extremities. PSYCHIATRIC: Alert and oriented -3. Appropriate affect. Intact judgment and insight. - Labs CBC & Chem 7: 05/29/21 07:21 05/29/21 05:51 Labs: Abnormal Lab Results - Last 24 Hours (Table) 05/29/21 05/29/21 Range/Units 05:51 07:21 WBC 14.7 H (3.8-10.6) k/uL Neutrophils # 13.0 H (1.3-7.7) k/uL Sodium 128 L (137-145) mmol/L Chloride 97 L (98-107) mmol/L BUN 28 H (7-17) mg/dL Glucose 100 H (74-99) mg/dL Calcium 8.2 L (8.4-10.2) mg/dL Assessment and Plan Plan: Assessment: #1. Acute ST elevated myocardial infarction involving anterolateral wall, status post proximal LAD PCI, and this was thought to be embolic in nature #2. Cardiogenic shock, status post Impella placement however this had to be removed related to occlusion and no blood flow to right lower extremity #3. Acute chronic CHF, currently echocardiogram shows EF of less than 20% and severe global hypokinesia #4. Lifetime nonsmoker #5. Acute elevation of liver enzymes possibly related to CHF #6. Hyponatremia, likely hypervolemic due to acute systolic CHF Plan: Continue diuretics Continue BiPAP support and appropriate the mask May alternate the 2 Chest x-ray has been reviewed We will add midodrine for blood pressure support Per cardiology maintain mean of 55 Continue monitoring for worsening dyspnea, and hypoxia BiPAP support at bedtime Follow-up labs including electrolytes and renal profile the morning Follow-up chest x-ray Antiplatelet therapy per cardiology, currently on Effient and Aspirin I performed a history & physical examination of the patient and discussed their management with my nurse practitioner, Amy Vines. I reviewed the nurse practitioner's note and agree with the documented findings and plan of care. Lung sounds are positive for diffuse wheezes throughout the lung dias. The findings and the impression was discussed with the patient. I attest to the documentation by the nurse practitioner. Time with Patient: Less than 30
--- NOTE | 2021-05-29 15:35 | P.PN ---
Subjective HISTORY OF PRESENT ILLNESS: This is a 60-year-old female who denies any significant past medical history. Patient does not follow with a edi programmer. We have been asked to see the patient in consultation for STEMI. Patient examined at the bedside in the emergency room. Patient states yesterday she ate chicken Rober for dinner and shortly afterwards began to feel unwell. She states that she initially thought she had food poisoning as she was nauseous and diaphoretic. She states she began having pain in the middle of her chest that felt like a heavy pressure. She denies feeling short of breath. She denied having any radiation of the pain. Patient states the pain persisted most of the night and she decided to come to the emergency room for further evaluation. He should have an EKG performed upon arrival to the emergency room revealing ST elevation in anterior lateral leads and a STEMI was called. 05/28 Patient seen and examined. Patient denies any chest pain or pressure. Still feels nauseous. Have had some difficulties measuring urine output with prior Barba placement not being adequate. Blood pressures have been borderline however pressures by arterial line with a map mainly of approximately 65. She was placed on low dose of norepinephrine. AST and ALTs mildly elevated. She was given additional dose of Lasix this morning with chest x-ray consistent with fluid overload. Echo pending this morning. Remains sinus tachycardia with heart rates 120s. 05/29 Patient seen and examined. Patient still remains short of breath and orthopneic. Chest x-ray still shows volume overload. She did have a little bit more food to eat and is not quite as nauseous. Her sodium however did decrease. She has had good urine output with the Lasix. PHYSICAL EXAM: VITAL SIGNS: Reviewed. GENERAL: Well-developed in no acute distress. HEENT: Head is normocephalic. Pupils are equal, round. Sclerae anicteric. Mucous membranes of the mouth are moist. Neck supple. No JVD or thyromegaly LUNGS: Bilateral crackles throughout HEART: tachycardic Regular rate and rhythm. S1 and S2 heard. ABDOMEN: Soft. Nondistended. Nontender. EXTREMITIES: Normal range of motion. No clubbing or cyanosis. Peripheral pulses intact. No lower extremity edema NEUROLOGIC: Awake and alert. Oriented x 3. ASSESSMENT: 1. Anterolateral STEMI status post proximal LAD PCI likely embolic in etiology with additional thrombus noted and circumflex which had embolized distally 2. Cardiogenic shock, s/p Impella CP placement during catheterization however complicated by no flow to RLE 3. Sinus tachycardia, compensatory related to cardiogenic shock 4. Acute on chronic systolic heart failure PLAN: Patient with late presenting anterior lateral STEMI complicated by cardiogenic shock. It appears most likely embolic in etiology with additional thrombus noted in circumflex which was then embolized distally. Had attempted to avoid inotropes given recent WI however still significant pulmonary edema and crackles and therefore we will start inotropes with milrinone. If blood pressure drops patient may need temporary levo fed. Goal would be to diurese on inotropes and then hopefully be able to decrease inotropes once she has been diuresed. Her sodium however has been going the wrong way and still remains in pulmonary edema. Objective - Vital Signs Vital signs: Vital Signs Temp 98.7 F 05/29/21 08:00 Pulse 107 H 05/29/21 14:00 Resp 32 H 05/29/21 14:00 BP 80/55 05/29/21 14:00 Pulse Ox 95 05/29/21 14:00 Intake & Output 05/28/21 05/29/21 05/29/21 19:59 06:59 18:59 Intake Total 640 Output Total 1575 Balance -935 Weight Intake: IV 160 .9 kvo 160 Intake, IV Titration Amount Norepinephrine 4 mg In Sodium Chloride 0.9% 250 ml @ 0.05 MCG/KG/MIN 7. 518 mls/hr IV .Q24H [facility] Rx#:[id number] Oral 480 Output: Urine 1575 Other: Voiding Method Bedpan ABP, PAP, CO, CI - Last Documented Arterial Blood Pressure 02/23 - Labs CBC & Chem 7: 05/29/21 07:21 05/29/21 05:51 Labs: Abnormal Lab Results - Last 24 Hours (Table) 05/29/21 05/29/21 Range/Units 05:51 07:21 WBC 14.7 H (3.8-10.6) k/uL Neutrophils # 13.0 H (1.3-7.7) k/uL Sodium 128 L (137-145) mmol/L Chloride 97 L (98-107) mmol/L BUN 28 H (7-17) mg/dL Glucose 100 H (74-99) mg/dL Calcium 8.2 L (8.4-10.2) mg/dL
[2021-05-29] MEDS: MILRINONE-D5W PMX 20 MG in DEXTROSE/WATER 1 100ML.BAG IV SCH (17:18)
[2021-05-30] MEDS: MILRINONE-D5W PMX 20 MG in DEXTROSE/WATER 1 100ML.BAG IV SCH ×2 (03:35→23:18)
[2021-05-30 05:23] LABS: African American GFR (CKD) >90 (>60 ml/min/1.73 sqM); Anion Gap 3 mmol/L; Blood Urea Nitrogen 19 mg/dL (7-17); Carbon Dioxide 31 mmol/L (22-30); Chloride 92 mmol/L (98-107); Glucose 109 mg/dL (74-99); Non-African American GFR(CKD) >90 (>60 ml/min/1.73 sqM); Potassium 3.3 mmol/L (3.5-5.1); Sodium 126 mmol/L (137-145)
[2021-05-30 05:37] LABS: Basophils % (A) 0 %; Eosinophils # (A) 0.1 k/uL (0-0.7); Eosinophils % (A) 0 %; HCT 35.4 % (34.0-46.0); HGB 12.4 gm/dL (11.4-16.0); Lymphocytes # (A) 1.2 k/uL (1.0-4.8); Lymphocytes % (A) 11 %; MCH 31.8 pg (25.0-35.0); MCV 90.8 fL (80.0-100.0); Mean Platelet Volume 8.5; Monocytes # (A) 0.4 k/uL (0-1.0); Monocytes % (A) 4 %; Neutrophils % (A) 84 %; Platelet Count 218 k/uL (150-450); RBC 3.89 m/uL (3.80-5.40); RDW 13.1 % (11.5-15.5); WBC 10.7 k/uL (3.8-10.6)
[2021-05-30] MEDS: MIDODRINE 5 MG TAB PO SCH ×3 (06:24→18:15)
[2021-05-30] MEDS: FUROSEMIDE 10 MG/ML 4 ML VIAL IV SCH ×3 (06:24→20:11)
[2021-05-30] MEDS: POTASSIUM CHLORIDE 10 MEQ in WATER FOR INJECTION 1 100ML.BAG IVPB SCH ×3 (07:00→09:48)
--- NOTE | 2021-05-30 07:04 | XR ---
EXAMINATION TYPE: XR chest 1V DATE OF EXAM: 05/30/2021 COMPARISON: 05/29/2021 HISTORY: Shortness of breath FINDINGS: There are bilateral pleural effusions with bibasilar infiltrate. There is a diffuse interstitial pa ttern. Osseous structures stable. IMPRESSION: 1. Stable diffuse pleural-parenchymal changes correlate for CHF otherwise consider diffuse pneumonia.
--- NOTE | 2021-05-30 09:34 | P.PN ---
Subjective Progress Note Date: 05/30/21 60-year-old female presents to the emergency department on May 27, complaining of chest pain. She saw Dr. Pinto in the emergency department. The patient was evaluated by cardiology, taken to the catheterization laboratory, and had a stent placed in her LAD. She is back in the intensive care unit. Currently, she is on BiPAP, with settings of IPAP 12, EPAP 6, and 60%. The patient was on IV nitroglycerin at 10 mcg/m. Unfortunately, her blood pressure was a bit low, and they were planning to potentially start norepinephrine. Apparently, the patient does not have any past medical history. The patient does not take any medications on a regular basis, and is a lifelong nonsmoker. White count 13.5, hemoglobin 14.2, hematocrit 41.2, platelet count 322,000. PT 10.1, INR 0.9, and PTT is 21.2. Sodium, potassium, chloride, and CO2 are all normal. Anion gap is normal. BUN is 19, with a creatinine 0.56. AST was 261 with an ALT of 48. Troponin was 12.3. Testing for coronavirus was negative. The patient was minute with a diagnosis of anterolateral ST segment elevation myocardial infarction. Chest x-ray show some mild fluid overload. On 05/28/2021, the patient is status post catheterization and stent placement in LAD. Currently, the patient's in the intensive care unit. She did not use BiPAP last night. She is on a nonrebreather mask. She's getting saline at KVO. She is on norepinephrine at 12 mcg/m. Her chest x-ray looks wet. The patient will get Lasix 40 mg IV push times one. White count 24.7, hemoglobin 14.2, hematocrit 42.6, platelet count 305,000. Sodium 134, potassium 3.9, chlorides 106, CO2 18, anion gap 10, BUN 26, creatinine 0.89. AST 695, ALT 86. Chest x- ray is consistent with fluid overload/CHF. On 05/29/2021 patient seen in follow-up in intensive care unit, she is awake and alert, she is on a nonrebreather mask, and she has been wearing BiPAP support intermittently, she remains on IV diuretics with Lasix 40 mg 3 times daily, she is -1.6 L net fluid balance, her chest x-ray today shows worsened pulmonary infiltrates. Her serum sodium is 128, potassium is 4.4, chloride is 97, BUN is 28 creatinine 0.68. White count is improved and is down to 14.7, hemoglobin is 13.2. Patient has significant chest pain. Patient has had some low blood pressures with systolic in the 70s and 80s, and diastolic in the 50s, she will be started on midodrine. Cardiology is following, does not recommend any initiation of inotropes unless the urine output significantly drops, patient has sinus tachycardia which is thought to be compensatory to cardiogenic shock. Cardiology recommends repeat arterial pressure around 55 or better as low as patient is asymptomatic. Patient continues on aspirin and Effient. Echocardiogram has been reviewed showing severe global hypokinesis and left ventricular systolic function of less than 20%. On 05/30/2021, the patient remains in the intensive care unit post acute AL. The patient was also in cardiogenic shock. For now, she is on oxygen at 12 L per minute nasal cannula. A repeat chest x-ray was done this morning and the chest x-ray showed ongoing evidence of pulmonary edema and small left-sided pleural effusion. The volume status is probably better compared to past 2 days. Meanwhile, the patient is still being diuresed. The fluid balance is -2.3 L over the past 24 hours and the patient remains in a negative fluid balance. The same time, the patient is being diuresed with IV Lasix 40 mg IV every 8 hours. The blood pressure was soft yesterday and the patient was started on midodrine 5 mg by mouth 3 times a day. He is on aspirin. She is on Effient. No beta blockers have been initiated. Milrinone was started yesterday told by the cardiac output. This is on 0.375 mcg/kg per minute. Objective - Vital Signs Vital signs: Vital Signs Temp 98.5 F 05/30/21 08:00 Pulse 112 H 05/30/21 08:00 Resp 24 05/30/21 08:00 BP 85/56 05/30/21 08:00 Pulse Ox 96 05/30/21 08:00 Intake & Output 05/29/21 05/30/21 05/30/21 18:59 06:59 18:59 Intake Total 720 287.2 120 Output Total 2475 850 600 Balance -1755 -562.8 -480 Intake: IV 240 240 20 .9 kvo 240 240 20 Intake, IV Titration 47.2 100 Amount Milrinone-D5w Pmx 20 mg 47.2 In Dextrose/Water 1 100ml .bag @ Per Protocol IV . Q0M [facility] Rx#:[id number] Potassium Chloride 10 meq 100 In Water For Injection 1 100ml.bag @ 100 mls/hr IVPB Q1HR [facility] Rx#: [id number] Oral 480 Output: Urine 2475 850 600 Other: Voiding Method Bedpan Bedpan Bedpan ABP, PAP, CO, CI - Last Documented Arterial Blood Pressure 02/23 - Exam GENERAL EXAM: Alert, very pleasant, 52-year-old white female, on 12 L per minute nasal cannula HEAD: Normocephalic/atraumatic. EYES: Normal reaction of pupils, equal size. Conjunctiva pink, sclera white. NOSE: Clear with pink turbinates. THROAT: No erythema or exudates. NECK: No masses, no JVD, no thyroid enlargement, no adenopathy. CHEST: No chest wall deformity. Symmetrical expansion. LUNGS: Equal air entry with bibasilar crackles CVS: Regular rate and rhythm, normal S1 and S2, no gallops, no murmurs, no rubs ABDOMEN: Soft, nontender. No hepatosplenomegaly, normal bowel sounds, no guarding or rigidity. EXTREMITIES: No clubbing, no edema, no cyanosis, 1+ pulses and upper and lower extremities. MUSCULOSKELETAL: Muscle strength and tone normal. SPINE: No scoliosis or deformity SKIN: No rashes CENTRAL NERVOUS SYSTEM: Alert and oriented -3. No focal deficits, tone is normal in all 4 extremities. PSYCHIATRIC: Alert and oriented -3. Appropriate affect. Intact judgment and insight. - Labs CBC & Chem 7: 05/30/21 04:32 05/30/21 04:32 Labs: Abnormal Lab Results - Last 24 Hours (Table) 05/30/21 05/30/21 Range/Units 04:32 04:32 WBC 10.7 H (3.8-10.6) k/uL Neutrophils # 9.0 H (1.3-7.7) k/uL Sodium 126 L (137-145) mmol/L Potassium 3.3 L (3.5-5.1) mmol/L Chloride 92 L (98-107) mmol/L Carbon Dioxide 31 H (22-30) mmol/L BUN 19 H (7-17) mg/dL Glucose 109 H (74-99) mg/dL Calcium 8.0 L (8.4-10.2) mg/dL Assessment and Plan Plan: #1. Acute ST elevated myocardial infarction involving anterolateral wall, status post proximal LAD PCI and stenting . The patient also had an Impella placement, right femoral angiogram, right femoral arteriotomy and closure with perclose #2. Cardiogenic shock, status post Impella placement however this had to be removed related to occlusion and no blood flow to right lower extremity. The patient has adequate pulses in 4 extremities. The patient is currently on milrinone running at 0.375 mcg/kg per minute to augment the cardiac output along with Lasix 40 mg IV every 8 hours. The patient is producing adequate amount of urine output and the patient is a negative fluid balance for now. Electrolytes are being monitored. Renal function is stable for now. #3. Acute chronic CHF, currently echocardiogram shows EF of less than 20% and severe global hypokinesia noted RV is normal. No significant valvular abnormalities. No evidence of any pericardial effusion. #4. Acute hypoxic respiratory failure secondary to pulmonary edema, the patient remains on high flow oxygen 12 L. Earlier, the patient was utilizing IPAP on and off along with 100% RV the facemask. The patient is diuresing well. #5. Acute elevation of liver enzymes possibly related to CHF #6. Hyponatremia, likely hypervolemic due to acute systolic CHF, improved and the patient's sodium level at 126 Plan: Continue diuretics Continue milrinone for now to augment the cardiac output Wean off FiO2 gradually currently on 12 L of the chest x-ray still showing pulmonary edema BiPAP support at bedtime Follow-up labs including electrolytes and renal profile the morning Follow-up chest x-ray Antiplatelet therapy per cardiology, currently on Effient and Aspirin Keep the patient intensive care unit for now. We'll continue to follow Continue replacing potassium as the patient is being diuresed. Continue using incentive spirometer Keep the patient on milrinone the same dose We'll continue to follow
[2021-05-30] MEDS ORDERED: POTASSIUM CHLORIDE ER 20 MEQ TAB.ER PO STA (09:46)
[2021-05-30] MEDS: ASPIRIN 81 MG PO SCH (09:54)
[2021-05-30] MEDS: PRASUGREL 10 MG TAB PO SCH (09:54)
--- NOTE | 2021-05-30 10:46 | ECHOF ---
Referral Reason:re: bubble study, rule out PFO, embolic [place] MEASUREMENTS -------- HEIGHT: 147.3 cm WEIGHT: 40.4 kg BP: 104/66 IVSd: 1.0 cm (0.6 - 1.1) LVIDd: 3.0 cm (3.9 - 5.3) LVPWd: 1.2 cm (0.6 - 1.1) IVSs: 1.2 cm LVIDs: 2.0 cm LVPWs: 1.3 cm FINDINGS -------- Sinus rhythm. This was a technically adequate study. Limited Study The left ventricular size is normal. There is borderline concentric left ventricular hypertrophy. Overall left ventricular systolic function is severely impaired with, an EF between 25 - 30 %. Bas al anterior LV wall motion is akinetic. Basal anteroseptal LV wall motion is akinetic. Mid ante rior LV wall motion is akinetic. Mid lateral LV wall motion is akinetic. Mid anteroseptal LV wa ll motion is akinetic. Apical anterior LV wall motion is akinetic. Apical lateral LV wall motio n is akinetic. Apical inferior LV wall motion is akinetic. Apical septum LV wall motion is magaly etic. 5.0mg of Lumason was utilized for enhancement of images Possible Thrombus in LV [place] There is no pericardial effusion. CONCLUSIONS -------- 1. There is borderline concentric left ventricular hypertrophy. 2. Overall left ventricular systolic function is severely impaired with, an EF between 25 - 30 %. 3. Basal anterior LV wall motion is akinetic. 4. Basal anteroseptal LV wall motion is akinetic. 5. Mid anterior LV wall motion is akinetic. 6. Mid lateral LV wall motion is akinetic. 7. Mid anteroseptal LV wall motion is akinetic. 8. Apical anterior LV wall motion is akinetic. 9. Apical lateral LV wall motion is akinetic. 10. Apical inferior LV wall motion is akinetic. 11. Apical septum LV wall motion is akinetic. 12. Possible Thrombus in LV [place] MEDICAL FRONT DESK COORDINATOR: Brook Green RDCS
--- NOTE | 2021-05-30 17:09 | P.PN ---
Subjective Progress Note Date: 05/30/21 This is a 60-year-old female who was admitted to the hospital to anterolateral AK and cardiac shock. Patient had stent placement of the LAD. Patient's LV function is severely impaired, according to the echocardiogram. Patient is also dealing with hyponatremia. Patient is on nonrebreather. Getting IV Lasix. Chest x-ray showed ongoing evidence of pulmonary edema and small left-sided pleural effusion. Patient is -2.3 L of fluid balance over the last 24 hours. She is currently on Lasix . Patient is not on beta trevin because of hypotension. She was also put on metered in 5 mg by mouth 3 times daily. Patient prognosis still guarded. However, patient denies any chest pain or shortness of breath and seemed to be optimistic Objective - Vital Signs Vital signs: Vital Signs Temp 98.0 F 05/30/21 14:00 Pulse 112 H 05/30/21 15:00 Resp 5 L 05/30/21 16:00 BP 77/56 05/30/21 15:00 Pulse Ox 95 05/30/21 15:00 Intake & Output 05/29/21 05/30/21 05/30/21 18:59 06:59 18:59 Intake Total 720 287.2 700 Output Total 2475 850 1300 Balance -1755 -562.8 -600 Intake: IV 240 240 20 .9 kvo 240 240 20 Intake, IV Titration 47.2 200 Amount Milrinone-D5w Pmx 20 mg 47.2 In Dextrose/Water 1 100ml .bag @ Per Protocol IV . Q0M [facility] Rx#:[id number] Potassium Chloride 10 meq 200 In Water For Injection 1 100ml.bag @ 100 mls/hr IVPB Q1HR [facility] Rx#: [id number] Oral 480 480 Output: Urine 2475 850 1300 Other: Voiding Method Bedpan Bedpan Bedpan ABP, PAP, CO, CI - Last Documented Arterial Blood Pressure 02/23 - Exam GENERAL EXAM: Patient is alert and oriented and appears to be pale and cachectic HEENT: Normocephalic. Normal reaction of pupils, equal size, normal range of extraocular motion. No erythema or exudates in the throat. NECK: No masses, no nuchal rigidity. CHEST: No chest wall deformity. LUNGS: Equal air entry with no crackles or wheeze. HEART: 1 and S2 heard. Irregular ABDOMEN: No hepatosplenomegaly, normal bowel sounds, no guarding or rigidity. SKIN: No rashes CENTRAL NERVOUS SYSTEM: No focal deficits. EXTREMITIES: No cyanosis, clubbing or edema. - Labs CBC & Chem 7: 05/30/21 04:32 05/30/21 04:32 Labs: Abnormal Lab Results - Last 24 Hours (Table) 05/30/21 05/30/21 Range/Units 04:32 04:32 WBC 10.7 H (3.8-10.6) k/uL Neutrophils # 9.0 H (1.3-7.7) k/uL Sodium 126 L (137-145) mmol/L Potassium 3.3 L (3.5-5.1) mmol/L Chloride 92 L (98-107) mmol/L Carbon Dioxide 31 H (22-30) mmol/L BUN 19 H (7-17) mg/dL Glucose 109 H (74-99) mg/dL Calcium 8.0 L (8.4-10.2) mg/dL Assessment and Plan (1) Cardiac shock syndrome Current Visit: Yes Status: Acute Code(s): R57.0 - CARDIOGENIC SHOCK SNOMED Code(s): 94133594 (2) ST elevation myocardial infarction (STEMI) Current Visit: Yes Status: Acute Code(s): I21.3 - ST ELEVATION (STEMI) MYOCARDIAL INFARCTION OF UNSP SITE SNOMED Code(s): 31847853 (3) Cardiomyopathy Current Visit: Yes Status: Acute Code(s): I42.9 - CARDIOMYOPATHY, UNSP ECIFIED SNOMED Code(s): 56106480 (4) Acute systolic CHF (congestive heart failure) Current Visit: Yes Status: Acute Code(s): I50.21 - ACUTE SYSTOLIC (CONGESTIVE) HEART FAILURE SNOMED Code(s): 110474202 Plan: Clinically patient seemed to be feeling a little better. We'll continue with current management with blood pressure port and diuretics. Prognosis is guarded
[2021-05-30] MEDS: NOREPINEPHRINE 4 MG in SODIUM CHLORIDE 0.9% 250 ML IV SCH (19:40)
[2021-05-30] MEDS: FAMOTIDINE 20 MG/2 ML VIAL IV SCH (20:11)
--- NOTE | 2021-05-30 22:17 | P.PN ---
Subjective Progress Note Date: 05/28/21 Principal diagnosis: Acute ST elevated [place] Patient is a 60-year-old female without significant past medical history presents to ER with complaints of chest pain. Patient states that last night she ate chicken Rober for dinner and since then she has been having nauseous and diaphoretic. Patient initially thought it flulike symptoms and food poisoning. Patient is still having heaviness in the chest mainly in the mid retrosternal and heavy pressure which made her come to ER today morning.. He denies any radiation of the pain. Denies any associated shortness of breath. No fever no chills. No cough or sputum production. Denies any recent illnesses. Patient had an EKG in the ER showed ST elevation in the anterior leads and STEMI team was activated. Chest x-ray showed there is some interstitial changes within the lungs. Correlate for pneumonia. Follow-up suggested. Laboratory data showed WBC 13.5 hemoglobin 14.1 platelets 322 lymphocytes 0.7 Sodium 137 potassium 4.3 chloride 105 bicarb is 24 BUN 19 and creatinine 0.56 AST 261 ALT 248 and alk phos 230 troponin 12.3 and coronavirus PCR not detected. 05/28/2021 Patient is in the MICU. Lying in the bed. Awake alert oriented x3. Currently on Ventimask. Patient also shortness of breath and nausea. Currently off pressor support. 2D echocardiogram showed there is severe global hypokinesis of LV. Overall left ventricular systolic function is severely impaired with ejection fraction less than 20%. Chest x-ray showed mild interval worsening in the acute cardiopulmonary disease. Findings are nonspecific and could reflect an acute inflammatory process or pulmonary edema. Short-term follow-up and clinical correlation is recommended. Patient was started on Lasix IV 40 mg every 8 hourly as blood pressure tolerates. Blood pressure is on the lower side. No complaints of dizziness or lightheadedness. Denies any diarrhea. Patient is able to tolerate oral diet slowly. WBC 24.7 hemoglobin 14.1 platelets 305 BUN 26 and creatinine 0.89 AST 695 ALT 86 alk phos 156 and total cholesterol is 206 Cardiology and pulmonary is on board. Current medications reviewed. Objective - Vital Signs Vital signs: Vital Signs Temp 98.9 F 05/28/21 18:00 Pulse 105 H 05/28/21 18:00 Resp 21 05/28/21 18:00 BP 87/60 05/28/21 18:00 Pulse Ox 94 L 05/28/21 18:00 Intake & Output 05/27/21 05/28/21 05/28/21 18:59 06:59 18:59 Intake Total 662.896 282.524 3537 Output Total 0 600 2200 Balance 662.896 -146.896 -856 Weight 39.463 kg 39.463 kg Intake: IV 582 240 240 .9 kvo 80 240 240 Intake, IV Titration 80.896 213.104 254 Amount Norepinephrine 4 mg In 40.896 213.104 254 Sodium Chloride 0.9% 250 ml @ 0.05 MCG/KG/MIN 7. 518 mls/hr IV .Q24H [facility] Rx#:[id number] Sodium Chloride 0.9% 1, 40 000 ml @ 0 mls/hr IV .[facility] [facility] Rx#:[id number] Oral 850 Output: Urine 0 600 2200 Other: Voiding Method Bedpan Bedpan Bedpan Incontinent External Catheter # Voids 2 ABP, PAP, CO, CI - Last Documented Arterial Blood Pressure 02/23 - Exam PHYSICAL EXAMINATION: Patient is lying in the bed comfortably, no acute distress, awake alert and oriented.. HEENT: Normocephalic. Neck is supple. Pupils reactive. Nostrils clear. Oral cavity is moist. Neck reveals no JVD, carotid bruits, or thyromegaly. CHEST EXAMINATION: Trachea is central. Symmetrical expansion. Bibasilar minimal crackles and diminished. No wheezing.. CARDIAC: Normal S1, S2 with no gallops. No murmurs ABDOMEN: Soft. Bowel sounds normal. No organomegaly. No abdominal bruits. Extremities: reveal no edema. No clubbing or cyanosis Neurologically awake, alert, oriented x3 with well-coordinated movements. No focal deficits noted Skin: No rash or skin lesions. Psychiatric: Cooperative. Nonsuicidal Musculoskeletal: No joint swelling or deformity. Normal range of motion. - Labs CBC & Chem 7: 05/30/21 04:32 05/30/21 04:32 Labs: Abnormal Lab Results - Last 24 Hours (Table) 05/28/21 05/28/21 05/28/21 Range/Units 03:25 03:25 12:47 WBC 24.7 H (3.8-10.6) k/uL Neutrophils # 22.6 H (1.3-7.7) k/uL ABG pH 7.46 H (7.35-7.45) ABG pCO2 28 L (35-45) mmHg ABG pO2 57 L* (83-108) mmHg ABG HCO3 20 L (21-25) mmol/L ABG O2 Saturation 89.8 L (94-97) % Sodium 134 L (137-145) mmol/L Carbon Dioxide 18 L (22-30) mmol/L BUN 26 H (7-17) mg/dL Glucose 138 H (74-99) mg/dL AST 695 H (14-36) U/L ALT 86 H (4-34) U/L Alkaline Phosphatase 156 H (38-126) U/L Total Protein 5.7 L (6.3-8.2) g/dL Albumin 3.1 L (3.5-5.0) g/dL Cholesterol 206.00 H (0.00-200.00) mg/dL HDL Cholesterol 66.70 H (40.00-60.00) mg/dL Assessment and Plan Assessment: Acute ST elevated [place] status post cardiac catheterization stent placement to the LAD. Acute hypoxic respiratory failure. Patient was on BiPAP post proce dure..Currently on Ventimask Hypotension due to Cardiogenic shock. Off pressors now. Acute CHF with ejection fraction less than 20% with global hypokinesis. Elevated liver enzymes DVT prophylaxis. Plan: Patient is being monitored in MICU. Was initially on BiPAP and transition to Ventimask now. Patient is off pressor support now. Patient was started IV Lasix due to pulmonary vascular congestion and effusion.. Nitro drip has been discontinued. Continue with aspirin, prasugrel and statins. LDL 122. Repeat CBC and CMP. Cardiology and pulmonary is on board. Continue to follow closely. Time with Patient: Greater than 30
--- NOTE | 2021-05-30 22:19 | P.PN ---
Subjective Progress Note Date: 05/29/21 Principal diagnosis: Acute ST elevated [place] Patient is a 60-year-old female without significant past medical history presents to ER with complaints of chest pain. Patient states that last night she ate chicken Rober for dinner and since then she has been having nauseous and diaphoretic. Patient initially thought it flulike symptoms and food poisoning. Patient is still having heaviness in the chest mainly in the mid retrosternal and heavy pressure which made her come to ER today morning.. He denies any radiation of the pain. Denies any associated shortness of breath. No fever no chills. No cough or sputum production. Denies any recent illnesses. Patient had an EKG in the ER showed ST elevation in the anterior leads and STEMI team was activated. Chest x-ray showed there is some interstitial changes within the lungs. Correlate for pneumonia. Follow-up suggested. Laboratory data showed WBC 13.5 hemoglobin 14.1 platelets 322 lymphocytes 0.7 Sodium 137 potassium 4.3 chloride 105 bicarb is 24 BUN 19 and creatinine 0.56 AST 261 ALT 248 and alk phos 230 troponin 12.3 and coronavirus PCR not detected. 05/28/2021 Patient is in the MICU. Lying in the bed. Awake alert oriented x3. Currently on Ventimask. Patient also shortness of breath and nausea. Currently off pressor support. 2D echocardiogram showed there is severe global hypokinesis of LV. Overall left ventricular systolic function is severely impaired with ejection fraction less than 20%. Chest x-ray showed mild interval worsening in the acute cardiopulmonary disease. Findings are nonspecific and could reflect an acute inflammatory process or pulmonary edema. Short-term follow-up and clinical correlation is recommended. Patient was started on Lasix IV 40 mg every 8 hourly as blood pressure tolerates. Blood pressure is on the lower side. No complaints of dizziness or lightheadedness. Denies any diarrhea. Patient is able to tolerate oral diet slowly. WBC 24.7 hemoglobin 14.1 platelets 305 BUN 26 and creatinine 0.89 AST 695 ALT 86 alk phos 156 and total cholesterol is 206 Cardiology and pulmonary is on board. 05/29/2021 Patient is currently lying in the bed. Saturating well via nasal cannula at 12 L. Patient is diuresing well with IV Lasix. Patient states that her breathing is better today. Chest x-ray showed moderate interval worsening in the bilateral lung infiltrates. Possible developing pleural effusions. Patient was started midodrine due to hypotension. Laboratory data showed WBC trending down to 14.7 hemoglobin 13.1 platelets 217 Sodium 128 potassium 4.4 thyroid 97, BUN 28 and creatinine 0.68 Calcium 8.2 Current medications reviewed. Objective - Vital Signs Vital signs: Vital Signs Temp 98.7 F 05/29/21 08:00 Pulse 107 H 05/29/21 14:00 Resp 32 H 05/29/21 14:00 BP 80/55 05/29/21 14:00 Pulse Ox 95 05/29/21 14:00 Intake & Output 05/28/21 05/29/21 05/29/21 19:59 06:59 18:59 Intake Total 640 Output Total 1575 Balance -935 Weight Intake: IV 160 .9 kvo 160 Intake, IV Titration Amount Norepinephrine 4 mg In Sodium Chloride 0.9% 250 ml @ 0.05 MCG/KG/MIN 7. 518 mls/hr IV .Q24H [facility] Rx#:[id number] Oral 480 Output: Urine 1575 Other: Voiding Method Bedpan ABP, PAP, CO, CI - Last Documented Arterial Blood Pressure 02/23 - Exam PHYSICAL EXAMINATION: Patient is lying in the bed comfortably, no acute distress, awake alert and oriented.. HEENT: Normocephalic. Neck is supple. Pupils reactive. Nostrils clear. Oral cavity is moist. Neck reveals no JVD, carotid bruits, or thyromegaly. CHEST EXAMINATION: Trachea is central. Symmetrical expansion. Bibasilar crackles and diminished. No wheezing.. CARDIAC: Normal S1, S2 with no gallops. No murmurs ABDOMEN: Soft. Bowel sounds normal. No organomegaly. No abdominal bruits. Extremities: reveal no edema. No clubbing or cyanosis Neurologically awake, alert, oriented x3 with well-coordinated movements. No focal deficits noted Skin: No rash or skin lesions. Psychiatric: Cooperative. Nonsuicidal Musculoskeletal: No joint swelling or deformity. Normal range of motion. - Labs CBC & Chem 7: 05/30/21 04:32 05/30/21 04:32 Labs: Abnormal Lab Results - Last 24 Hours (Table) 05/29/21 05/29/21 Range/Units 05:51 07: WBC 14.7 H (3.8-10.6) k/uL Neutrophils # 13.0 H (1.3-7.7) k/uL Sodium 128 L (137-145) mmol/L Chloride 97 L (98-107) mmol/L BUN 28 H (7-17) mg/dL Glucose 100 H (74-99) mg/dL Calcium 8.2 L (8.4-10.2) mg/dL Assessment and Plan Assessment: Acute ST elevated [place] status post cardiac catheterization stent placement to the LAD. Acute hypoxic respiratory failure. Patient was on BiPAP post procedure..Curr ently on Ventimask Hypotension due to Cardiogenic shock. Off pressors now. Acute CHF with ejection fraction less than 20% with global hypokinesis. Hypovolemic hyponatremia due to diuresis. Elevated liver enzymes DVT prophylaxis. Plan: Patient is being monitored in MICU. Was initially on BiPAP and transition to Ventimask now. Patient is off pressor support now. Patient was started IV Lasix due to pulmonary vascular congestion and effusion.. Patient was started on milrinone drip due to significant pulmonary edema Nitro drip has been discontinued. Continue with aspirin, prasugrel and statins. LDL 122. Repeat CBC and CMP. Cardiology and pulmonary is on board. Continue to follow closely. Time with Patient: Greater than 30
--- NOTE | 2021-05-30 22:27 | P.PN ---
Subjective Progress Note Date: 05/30/21 Principal diagnosis: Acute ST elevated [place] Patient is a 60-year-old female without significant past medical history presents to ER with complaints of chest pain. Patient states that last night she ate chicken Rober for dinner and since then she has been having nauseous and diaphoretic. Patient initially thought it flulike symptoms and food poisoning. Patient is still having heaviness in the chest mainly in the mid retrosternal and heavy pressure which made her come to ER today morning.. He denies any radiation of the pain. Denies any associated shortness of breath. No fever no chills. No cough or sputum production. Denies any recent illnesses. Patient had an EKG in the ER showed ST elevation in the anterior leads and STEMI team was activated. Chest x-ray showed there is some interstitial changes within the lungs. Correlate for pneumonia. Follow-up suggested. Laboratory data showed WBC 13.5 hemoglobin 14.1 platelets 322 lymphocytes 0.7 Sodium 137 potassium 4.3 chloride 105 bicarb is 24 BUN 19 and creatinine 0.56 AST 261 ALT 248 and alk phos 230 troponin 12.3 and coronavirus PCR not detected. 05/28/2021 Patient is in the MICU. Lying in the bed. Awake alert oriented x3. Currently on Ventimask. Patient also shortness of breath and nausea. Currently off pressor support. 2D echocardiogram showed there is severe global hypokinesis of LV. Overall left ventricular systolic function is severely impaired with ejection fraction less than 20%. Chest x-ray showed mild interval worsening in the acute cardiopulmonary disease. Findings are nonspecific and could reflect an acute inflammatory process or pulmonary edema. Short-term follow-up and clinical correlation is recommended. Patient was started on Lasix IV 40 mg every 8 hourly as blood pressure tolerates. Blood pressure is on the lower side. No complaints of dizziness or lightheadedness. Denies any diarrhea. Patient is able to tolerate oral diet slowly. WBC 24.7 hemoglobin 14.1 platelets 305 BUN 26 and creatinine 0.89 AST 695 ALT 86 alk phos 156 and total cholesterol is 206 Cardiology and pulmonary is on board. 05/29/2021 Patient is currently lying in the bed. Saturating well via nasal cannula at 12 L. Patient is diuresing well with IV Lasix. Patient states that her breathing is better today. Chest x-ray showed moderate interval worsening in the bilateral lung infiltrates. Possible developing pleural effusions. Patient was started midodrine due to hypotension. Laboratory data showed WBC trending down to 14.7 hemoglobin 13.1 platelets 217 Sodium 128 potassium 4.4 thyroid 97, BUN 28 and creatinine 0.68, Calcium 8.2 05/30/2021 Patient is in MICU. Currently being continued on IV Lasix and midodrine. Also on milrinone drip. Blood pressure is at the borderline. Diuresing well. However sodium level dropped to 126 today. No complaints of chest pain. Shortness of breath is improving. Patient is able to tolerate 25% of the meal. Complains of nausea. No episodes of vomiting. No abdominal pain or diarrhea. No headache or dizziness or lightheadedness. No dysuria. Laboratory showed WBC trending down to 10.7 hemoglobin 12.4 and platelets 218 Sodium 126, potassium 3.3, chloride 92, BUN 19 and creatinine 0.6 Patient was given 20 mEq of potassium today. Current medications reviewed. Objective - Vital Signs Vital signs: Vital Signs Temp 97.9 F 05/30/21 16:00 Pulse 124 H 05/30/21 18:30 Resp 11 L 05/30/21 18:30 BP 90/62 05/30/21 18:30 Pulse Ox 92 L 05/30/21 18:30 Intake & Output 05/29/21 05/30/21 05/30/21 18:59 06:59 18:59 Intake Total 720 287.2 940 Output Total 2475 850 1800 Balance -1755 -562.8 -860 Intake: IV 240 240 20 .9 kvo 240 240 20 Intake, IV Titration 47.2 200 Amount Milrinone-D5w Pmx 20 mg 47.2 In Dextrose/Water 1 100ml .bag @ Per Protocol IV . Q0M [facility] Rx#:[id number] Potassium Chloride 10 meq 200 In Water For Injection 1 100ml.bag @ 100 mls/hr IVPB Q1HR [facility] Rx#: [id number] Oral 480 720 Output: Urine 2475 850 1800 Other: Voiding Method Bedpan Bedpan Bedpan ABP, PAP, CO, CI - Last Documented Arterial Blood Pressure 02/23 - Exam PHYSICAL EXAMINATION: Patient is lying in the bed comfortably, no acute distress, awake alert and oriented.. HEENT: Normocephalic. Neck is supple. Pupils reactive. Nostrils clear. Oral cavity is moist. Neck reveals no JVD, carotid bruits, or thyromegaly. CHEST EXAMINATION: Trachea is central. Symmetrical expansion. Bibasilar crackles and diminished. No wheezing.. CARDIAC: Normal S1, S2 with no gallops. No murmurs ABDOMEN: Soft. Bowel sounds normal. No organomegaly. No abdominal bruits. Extremities: reveal no edema. No clubbing or cyanosis Neurologically awake, alert, oriented x3 with well-coordinated movements. No focal deficits noted Skin: No rash or skin lesions. Psychiatric: Cooperative. Nonsuicidal Musculoskeletal: No joint swelling or deformity. Normal range of motion. - Labs CBC & Chem 7: 05/30/21 04:32 05/30/21 04:32 Labs: Abnormal Lab Results - Last 24 Hours (Table) 05/30/21 05/30/21 Range/Units 04:32 04:32 WBC 10.7 H (3.8-10.6) k/uL Neutrophils # 9.0 H (1.3-7.7) k/uL Sodium 126 L (137-145) mmol/L Potassium 3.3 L (3.5-5.1) mmol/L Chloride 92 L (98-107) mmol/L Carbon Dioxide 31 H (22-30) mmol/L BUN 19 H (7-17) mg/dL Glucose 109 H (74-99) mg/dL Calcium 8.0 L (8.4-10.2) mg/dL Assessment and Plan Assessment: Acute ST elevated [place] status post cardiac catheterization stent placement to the LAD. Acute hypoxic respiratory failure. Patient was on BiPAP post procedu re..Currently on [place] at 12L/min Hypotension due to Cardiogenic shock. Off pressors now. Acute CHF with ejection fraction less than 20% with global hypokinesis. Hypovolemic hyponatremia due to diuresis. Hypokalemia Elevated liver enzymes DVT prophylaxis. Plan: Patient is being monitored in MICU. Was initially on BiPAP and transition to Ventimask--->NC. Patient is off pressor support now. Patient was started IV Lasix due to pulmonary vascular congestion and effusion.. Patient was started on milrinone drip due to significant pulmonary edema Continue with aspirin, prasugrel and statins. LDL 122. Repeat CBC and CMP. Cardiology and pulmonary is on board. Continue to follow closely. Time with Patient: Greater than 30
[2021-05-30] MEDS ORDERED: IBUPROFEN 400 MG TAB PO STA (23:27)
[2021-05-31] MEDS: FUROSEMIDE 10 MG/ML 4 ML VIAL IV SCH ×3 (06:18→20:26)
[2021-05-31] MEDS: MIDODRINE 5 MG TAB PO SCH ×3 (06:19→17:04)
[2021-05-31 06:29] LABS: Basophils % (A) 0 %; Eosinophils # (A) 0.1 k/uL (0-0.7); Eosinophils % (A) 1 %; HCT 36.8 % (34.0-46.0); HGB 12.6 gm/dL (11.4-16.0); Lymphocytes % (A) 10 %; MCH 31.8 pg (25.0-35.0); MCHC 34.3 g/dL (31.0-37.0); MCV 92.8 fL (80.0-100.0); Mean Platelet Volume 8.6; Monocytes # (A) 0.6 k/uL (0-1.0); Monocytes % (A) 6 %; Neutrophils # (A) 8.1 k/uL (1.3-7.7); Neutrophils % (A) 82 %; Platelet Count 241 k/uL (150-450); RBC 3.97 m/uL (3.80-5.40); RDW 12.4 % (11.5-15.5); WBC 9.9 k/uL (3.8-10.6)
[2021-05-31 06:32] LABS: ALT 31 U/L (4-34); AST 66 U/L (14-36); African American GFR (CKD) >90 (>60 ml/min/1.73 sqM); Albumin 2.7 g/dL (3.5-5.0); Alkaline Phosphatase 141 U/L (38-126); Anion Gap 5 mmol/L; Blood Urea Nitrogen 15 mg/dL (7-17); Calcium 8.6 mg/dL (8.4-10.2); Carbon Dioxide 32 mmol/L (22-30); Chloride 93 mmol/L (98-107); Glucose 121 mg/dL (74-99); Non-African American GFR(CKD) >90 (>60 ml/min/1.73 sqM); Potassium 3.6 mmol/L (3.5-5.1); Sodium 130 mmol/L (137-145); Total Bilirubin 0.6 mg/dL (0.2-1.3); Total Protein 5.4 g/dL (6.3-8.2)
--- NOTE | 2021-05-31 06:39 | XR ---
EXAMINATION TYPE: XR chest 1V portable DATE OF EXAM: 05/31/2021 CLINICAL HISTORY: Difficulty breathing progress study. TECHNIQUE: Single AP portable upright view of the chest is obtained. COMPARISON: Chest x-ray from one day earlier and older studies. FINDINGS: Patchy bibasilar opacities remain present but improved. Increased reticulonodular markings left midlung redemonstrated but improved. Cardiac silhouette size stable and within normal limits. O verlying EKG leads. Underlying scoliotic curvature. IMPRESSION: Improving bibasilar and left midlung reticulonodular edema and/or infiltrates.
[2021-05-31] MEDS ORDERED: POTASSIUM CHLORIDE ER 20 MEQ TAB.ER PO STA (08:08)
[2021-05-31] MEDS: POTASSIUM CHLORIDE ER 20 MEQ TAB.ER PO SCH (08:17)
[2021-05-31] MEDS: ASPIRIN 81 MG PO SCH (08:17)
[2021-05-31] MEDS: FAMOTIDINE 20 MG/2 ML VIAL IV SCH (08:17)
[2021-05-31] MEDS: HEPARIN SODIUM,PORCINE/PF 5,000 UNIT/0.5 ML SYRINGE SQ SCH ×2 (08:17→20:26)
[2021-05-31] MEDS: PRASUGREL 10 MG TAB PO SCH (08:17)
--- NOTE | 2021-05-31 09:05 | P.PN ---
Subjective Progress Note Date: 05/31/21 60-year-old female presents to the emergency department on May 27, complaining of chest pain. She saw Dr. Pinto in the emergency department. The patient was evaluated by cardiology, taken to the catheterization laboratory, and had a stent placed in her LAD. She is back in the intensive care unit. C urrently, she is on BiPAP, with settings of IPAP 12, EPAP 6, and 60%. The patient was on IV nitroglycerin at 10 mcg/m. Unfortunately, her blood pressure was a bit low, and they were planning to potentially start norepinephrine. Apparently, the patient does not have any past medical history. The patient does not take any medications on a regular basis, and is a lifelong nonsmoker. White count 13.5, hemoglobin 14.2, hematocrit 41.2, platelet count 322,000. PT 10.1, INR 0.9, and PTT is 21.2. Sodium, potassium, chloride, and CO2 are all normal. Anion gap is normal. BUN is 19, with a creatinine 0.56. AST was 261 with an ALT of 48. Troponin was 12.3. Testing for coronavirus was negative. The patient was minute with a diagnosis of anterolateral ST segment elevation myocardial infarction. Chest x-ray show some mild fluid overload. On 05/28/2021, the patient is status post catheterization and stent placement in LAD. Currently, the patient's in the intensive care unit. She did not use BiPAP last night. She is on a nonrebreather mask. She's getting saline at KVO. She is on norepinephrine at 12 mcg/m. Her chest x-ray looks wet. The patient will get Lasix 40 mg IV push times one. White count 24.7, hemoglobin 14.2, hematocrit 42.6, platelet count 305,000. Sodium 134, potassium 3.9, chlorides 106, CO2 18, anion gap 10, BUN 26, creatinine 0.89. AST 695, ALT 86. Chest x- ray is consistent with fluid overload/CHF. On 05/29/2021 patient seen in follow-up in intensive care unit, she is awake and alert, she is on a nonrebreather mask, and she has been wearing BiPAP support intermittently, she remains on IV diuretics with Lasix 40 mg 3 times daily, she is -1.6 L net fluid balance, her chest x-ray today shows worsened pulmonary infiltrates. Her serum sodium is 128, potassium is 4.4, chloride is 97, BUN is 28 creatinine 0.68. White count is improved and is down to 14.7, hemoglobin is 13.2. Patient has significant chest pain. Patient has had some low blood p ressures with systolic in the 70s and 80s, and diastolic in the 50s, she will be started on midodrine. Cardiology is following, does not recommend any initiation of inotropes unless the urine output significantly drops, patient has sinus tachycardia which is thought to be compensatory to cardiogenic shock. Cardiology recommends repeat arterial pressure around 55 or better as low as patient is asymptomatic. Patient continues on aspirin and Effient. Echocardiogram has been reviewed showing severe global hypokinesis and left ventricular systolic function of less than 20%. On 05/30/2021, the patient remains in the intensive care unit post acute TX. The patient was also in cardiogenic shock. For now, she is on oxygen at 12 L per minute nasal cannula. A repeat chest x-ray was done this morning and the chest x-ray showed ongoing evidence of pulmonary edema and small left-sided pleural effusion. The volume status is probably better compared to past 2 days. Meanwhile, the patient is still being diuresed. The fluid balance is -2.3 L over the past 24 hours and the patient remains in a negative fluid balance. The same time, the patient is being diuresed with IV Lasix 40 mg IV every 8 hours. The blood pressure was soft yesterday and the patient was started on midodrine 5 mg by mouth 3 times a day. He is on aspirin. She is on Effient. No beta blockers have been initiated. Milrinone was started yesterday told by the cardiac output. This is on 0.375 mcg/kg per minute. The patient is seen today 05/31/2021 in follow-up in the intensive care unit. She is post cardiac infarction in cardiogenic shock. The plan may be to return to the [facility] later today. She is currently sitting up in a chair at the bedside. Awake and alert in no acute distress. Denies any chest pain currently. She is remaining in sinus rhythm to sinus tach. She did not utilize the BiPAP last evening which is set at 12/6 and 60% FiO2. She is currently on 4 L/m per nasal cannula. She remains on milrinone drip at 0.375 mcg/kg/m. 0.9 normal saline at 20 miles per hour. Her potassium is being replaced. She really remains on IV Lasix every 8 hours. White count 9.9. Hemoglobin 12.6. Sodium 1:30. Potassium 3.6. Bicarb 32. Creatinine 0.62. Glucose 121. AST 66, ALT is 31. Albumin 2.7. Remains on heparin for DVT prophylaxis. Remains on Effient and aspirin. X-rays showing improved aeration in the mid left lung and bibasilar edema. Objective - Vital Signs Vital signs: Vital Signs Temp 99.1 F 05/31/21 04:00 Pulse 111 H 05/31/21 07:30 Resp 18 05/31/21 07:30 BP 84/64 05/31/21 07:30 Pulse Ox 96 05/31/21 07:30 Intake & Output 05/30/21 05/31/21 05/31/21 18:59 06:59 18:59 Intake Total 940 550.5 20 Output Total 1800 850 200 Balance -860 -299.5 -180 Weight 40.6 kg Intake: IV 20 220 20 .9 kvo 20 220 20 Intake, IV Titration 200 90.5 Amount Milrinone-D5w Pmx 20 mg 90.5 In Dextrose/Water 1 100ml .bag @ Per Protocol IV . Q0M [facility] Rx#:[id number] Potassium Chloride 10 meq 200 In Water For Injection 1 100ml.bag @ 100 mls/hr IVPB Q1HR [facility] Rx#: [id number] Oral 720 240 Output: Urine 1800 850 200 Other: Voiding Method Bedpan Bedpan ABP, PAP, CO, CI - Last Documented Arterial Blood Pressure 02/23 - Exam GENERAL EXAM: Alert, very pleasant, 60-year-old female, on 4 L per minute nasal cannula HEAD: Normocephalic/atraumatic. EYES: Normal reaction of pupils, equal size. Conjunctiva pink, sclera white. NOSE: Clear with pink turbinates. THROAT: No erythema or exudates. NECK: No masses, no JVD, no thyroid enlargement, no adenopathy. CHEST: No chest wall deformity. Symmetrical expansion. LUNGS: Equal air entry with bibasilar crackles CVS: Regular rate and rhythm, normal S1 and S2, no gallops, no murmurs, no rubs ABDOMEN: Soft, nontender. No hepatosplenomegaly, normal bowel sounds, no guarding or rigidity. EXTREMITIES: No clubbing, no edema, no cyanosis, 1+ pulses and upper and lower extremities. MUSCULOSKELETAL: Muscle strength and tone normal. SPINE: No scoliosis or deformity SKIN: No rashes CENTRAL NERVOUS SYSTEM: Alert and oriented -3. No focal deficits, tone is normal in all 4 extremities. PSYCHIATRIC: Alert and oriented -3. Appropriate affect. Intact judgment and insight. - Labs CBC & Chem 7: 05/31/21 05:41 05/31/21 05:41 Labs: Abnormal Lab Results - Last 24 Hours (Table) 05/31/21 05/31/21 Range/Units 05:41 05:41 Neutrophils # 8.1 H (1.3-7.7) k/uL Sodium 130 L (137-145) mmol/L Chloride 93 L (98-107) mmol/L Carbon Dioxide 32 H (22-30) mmol/L Glucose 121 H (74-99) mg/dL AST 66 H (14-36) U/L Alkaline Phosphatase 141 H (38-126) U/L Total Protein 5.4 L (6.3-8.2) g/dL Albumin 2.7 L (3.5-5.0) g/dL Assessment and Plan Assessment: [address] elevated myocardial infarction involving anterolateral wall, status post proximal LAD PCI and stenting . The patient also had an Impella placement, right femoral angiogram, right femoral arteriotomy and closure with perclose. Cardiology is considering taking her back to the [facility] later today for further evaluation. 2 Cardiogenic shock, status post Impella placement however this had to be removed related to occlusion and no blood flow to right lower extremity. The patient has adequate pulses in 4 extremities. The patient is currently on milrinone running at 0.375 mcg/kg per minute to augment the cardiac output along with Lasix 40 mg IV every 8 hours. The patient is producing adequate amount of urine output and the patient is a negative fluid balance for now. Electrolytes are being monitored. Renal function is stable for now. 3 Acute chronic CHF, currently echocardiogram shows EF of less than 20% and severe global hypokinesia noted RV is normal. No significant valvular abnormalities. No evidence of any pericardial effusion. Today's chest x-ray showing improving bibasilar and left midlung reticulonodular edema. 4 Acute hypoxic respiratory failure secondary to pulmonary edema, the patient remains on her liters per minute per nasal cannula. Has been off the BiPAP. The patient is diuresing well. 5 Acute elevation of liver enzymes possibly related to CHF 6 Hyponatremia, likely hypervolemic due to acute systolic CHF, improved and the patient's sodium level at 130 Plan: The patient was seen and evaluated by Dr. Parson Chest x-ray and labs reviewed Chest x-ray showing improvement Down to 4 L nasal cannula Electrolytes being replaced Remains on milrinone Remains on IV diuretics Cardiology may return take her to the [facility] later today for further evaluation We will continue to follow and make further recommendations based on her clinical status I, the cosigning physician, performed a history & physical examination of the patient. Lungs sounds with crackles in the posterior bases. Maintaining good O2 saturations in the 90s on 4 L/m per nasal cannula. I discussed the assessment and plan of care with my nurse practitioner, Ruthy Ambrocio. I attest to the above note as dictated by her.
[2021-05-31] MEDS: NOREPINEPHRINE 4 MG in SODIUM CHLORIDE 0.9% 250 ML IV SCH (12:09)
--- NOTE | 2021-05-31 15:04 | P.PN ---
Subjective Progress Note Date: 05/31/21 This is a 60-year-old female who was admitted to the hospital to anterolateral PR and cardiac shock. Patient had stent placement of the LAD. Patient's LV function is severely impaired, according to the echocardiogram. Patient is also dealing with hyponatremia. Patient is on nonrebreather. Getting IV Lasix. Chest x-ray showed ongoing evidence of pulmonary edema and small left-sided pleural effusion. Patient is -2.3 L of fluid balance over the last 24 hours. She is currently on Lasix . Patient is not on beta trevin because of hypotension. She was also put on metered in 5 mg by mouth 3 times daily. Patient prognosis still guarded. However, patient denies any chest pain or shortness of breath and seemed to be optimistic 05/31/2021: This patient seemed to be doing better today. Denies any chest pain. Looks frail and weak. No respiratory distress. Chest x-ray shows improvement. Her blood pressure is more stable on milrinone. Lungs are relatively clear. Heart is regular. Dr. Smart is going to do a right heart catheterization to see if she needs LVAD. We'll repeat echocardiogram tomorrow. Increase activity slowly Objective - Vital Signs Vital signs: Vital Signs Temp 98.3 F 05/31/21 12:00 Pulse 121 H 05/31/21 13:30 Resp 20 05/31/21 13:30 BP 100/67 05/31/21 13:30 Pulse Ox 91 L 05/31/21 13:30 Intake & Output 05/30/21 05/31/21 05/31/21 18:59 06:59 18:59 Intake Total 940 550.5 167.6 Output Total 2497 430 0808 Balance -860 -299.5 -882.4 Weight 40.6 kg Intake: IV 20 220 167.6 .9 kvo 20 220 140 Milrinone-D5w Pmx 20 mg 27.6 In Dextrose/Water 1 100ml .bag @ Per Protocol IV . Q0M [facility] Rx#:[id number] Intake, IV Titration 200 90.5 Amount Milrinone-D5w Pmx 20 mg 90.5 In Dextrose/Water 1 100ml .bag @ Per Protocol IV . Q0M [facility] Rx#:[id number] Potassium Chloride 10 meq 200 In Water For Injection 1 100ml.bag @ 100 mls/hr IVPB Q1HR [facility] Rx#: [id number] Oral 720 240 Output: Urine 7271 102 4747 Other: Voiding Method Bedpan Bedpan # Bowel Movements 1 ABP, PAP, CO, CI - Last Documented Arterial Blood Pressure 02/23 - Exam GENERAL EXAM: Patient is alert and oriented and appears to be pale and cachectic HEENT: Normocephalic. Normal reaction of pupils, equal size, normal range of extraocular motion. No erythema or exudates in the throat. NECK: No masses, no nuchal rigidity. CHEST: No chest wall deformity. LUNGS: Equal air entry with no crackles or wheeze. HEART: 1 and S2 heard. Irregular ABDOMEN: No hepatosplenomegaly, normal bowel sounds, no guarding or rigidity. SKIN: No rashes CENTRAL NERVOUS SYSTEM: No focal deficits. EXTREMITIES: No cyanosis, clubbing or edema. - Labs CBC & Chem 7: 05/31/21 05:41 05/31/21 05:41 Labs: Abnormal Lab Results - Last 24 Hours (Table) 05/31/21 05/31/21 Range/Units 05:41 05:41 Neutrophils # 8.1 H (1.3-7.7) k/uL Sodium 130 L (137-145) mmol/L Chloride 93 L (98-107) mmol/L Carbon Dioxide 32 H (22-30) mmol/L Glucose 121 H (74-99) mg/dL AST 66 H (14-36) U/L Alkaline Phosphatase 141 H (38-126) U/L Total Protein 5.4 L (6.3-8.2) g/dL Albumin 2.7 L (3.5-5.0) g/dL Assessment and Plan (1) Cardiac shock syndrome Current Visit: Yes Status: Acute Code(s): R57.0 - CARDIOGENIC SHOCK SNOMED Code(s): 45602229 (2) ST elevation myocardial infarction (STEMI) Current Visit: Yes Status: Acute Code(s): I21.3 - ST ELEVATION (STEMI) MYOCARDIAL INFARCTION OF [facility] SITE SNOMED Code(s): 27131424 (3) Cardiomyopathy Current Visit: Yes Status: Acute Code(s): I42.9 - CARDIOMYOPATHY, U NSPECIFIED SNOMED Code(s): 63341701 (4) Acute systolic CHF (congestive heart failure) Current Visit: Yes Status: Acute Code(s): I50.21 - ACUTE SYSTOLIC (CONGESTIVE) HEART FAILURE SNOMED Code(s): 577719447 Plan: Overall this seemed to some improvement. Blood pressure is more stable. Chest x-ray shows improvement. Continue current medical therapy. Repeat echocardiogram within next 24-48 hours
[2021-05-31] MEDS: FAMOTIDINE 20 MG TAB PO SCH (20:26)
[2021-05-31] MEDS: MILRINONE-D5W PMX 20 MG in DEXTROSE/WATER 1 100ML.BAG IV SCH (20:26)
--- NOTE | 2021-05-31 20:34 | P.PN ---
Subjective Progress Note Date: 05/31/21 Principal diagnosis: Acute ST elevated [place] Patient is a 60-year-old female without significant past medical history presents to ER with complaints of chest pain. Patient states that last night she ate chicken Rober for dinner and since then she has been having nauseous and diaphoretic. Patient initially thought it flulike symptoms and food poisoning. Patient is still having heaviness in the chest mainly in the mid retrosternal and heavy pressure which made her come to ER today morning.. He denies any radiation of the pain. Denies any associated shortness of breath. No fever no chills. No cough or sputum production. Denies any recent illnesses. Patient had an EKG in the ER showed ST elevation in the anterior leads and STEMI team was activated. Chest x-ray showed there is some interstitial changes within the lungs. Correlate for pneumonia. Follow-up suggested. Laboratory data showed WBC 13.5 hemoglobin 14.1 platelets 322 lymphocytes 0.7 Sodium 137 potassium 4.3 chloride 105 bicarb is 24 BUN 19 and creatinine 0.56 AST 261 ALT 248 and alk phos 230 troponin 12.3 and coronavirus PCR not detected. 05/28/2021 Patient is in the MICU. Lying in the bed. Awake alert oriented x3. Currently on Ventimask. Patient also shortness of breath and nausea. Currently off pressor support. 2D echocardiogram showed there is severe global hypokinesis of LV. Overall left ventricular systolic function is severely impaired with ejection fraction less than 20%. Chest x-ray showed mild interval worsening in the acute cardiopulmonary disease. Findings are nonspecific and could reflect an acute inflammatory process or pulmonary edema. Short-term follow-up and clinical correlation is recommended. Patient was started on Lasix IV 40 mg every 8 hourly as blood pressure tolerates. Blood pressure is on the lower side. No complaints of dizziness or lightheadedness. Denies any diarrhea. Patient is able to tolerate oral diet slowly. WBC 24.7 hemoglobin 14.1 platelets 305 BUN 26 and creatinine 0.89 AST 695 ALT 86 alk phos 156 and total cholesterol is 206 Cardiology and pulmonary is on board. 05/29/2021 Patient is currently lying in the bed. Saturating well via nasal cannula at 12 L. Patient is diuresing well with IV Lasix. Patient states that her breathing is better today. Chest x-ray showed moderate interval worsening in the bilateral lung infiltrates. Possible developing pleural effusions. Patient was started midodrine due to hypotension. Laboratory data showed WBC trending down to 14.7 hemoglobin 13.1 platelets 217 Sodium 128 potassium 4.4 thyroid 97, BUN 28 and creatinine 0.68, Calcium 8.2 05/30/2021 Patient is in MICU. Currently being continued on IV Lasix and midodrine. Also on milrinone drip. Blood pressure is at the borderline. Diuresing well. However sodium level dropped to 126 today. No complaints of chest pain. Shortness of breath is improving. Patient is able to tolerate 25% of the meal. Complains of nausea. No episodes of vomiting. No abdominal pain or diarrhea. No headache or dizziness or lightheadedness. No dysuria. Laboratory showed WBC trending down to 10.7 hemoglobin 12.4 and platelets 218 Sodium 126, potassium 3.3, chloride 92, BUN 19 and creatinine 0.6 Patient was given 20 mEq of potassium today. 05/31/2021 Patient is in the MICU. Currently sitting in the chair. Awake alert and oriented times instructions better today. Currently requiring oxygen at 2 L via nasal cannula. Patient is able to walk few steps. Patient is being continued on milrinone drip and also on IV Lasix every 8 hourly. Laboratory showed sodium 130 potassium 3.6 bicarb 32 and creatinine level 0.62, WBC 9.9 and hemoglobin 12.6 Chest x-ray showed improved aeration in the mid left lung and bibasilar edema. Pulmonary and cardiology is on board. Discussed with the patient and her at bedside in detail. Current medications reviewed. Objective - Vital Signs Vital signs: Vital Signs Temp 99.4 F 05/31/21 16:00 Pulse 118 H 05/31/21 19:00 Resp 11 L 05/31/21 19:00 BP 91/62 05/31/21 19:00 Pulse Ox 93 L 05/31/21 19:00 Intake & Output 05/31/21 05/31/21 06/01/21 06:59 18:59 06:59 Intake Total 550.5 967.6 367.002 Output Total 850 1650 Balance -299.5 -682.4 367.002 Weight 40.6 kg Intake: IV 220 267.6 20 .9 kvo 220 240 20 Milrinone-D5w Pmx 20 mg 27.6 In Dextrose/Water 1 100ml .bag @ Per Protocol IV . Q0M [facility] Rx#:[id number] Intake, IV Titration 90.5 97.002 Amount Milrinone-D5w Pmx 20 mg 90.5 97.002 In Dextrose/Water 1 100ml .bag @ Per Protocol IV . Q0M [facility] Rx#:[id number] Oral 240 700 250 Output: Urine 850 1650 Other: Voiding Method Bedpan Bedpan # Bowel Movements 1 ABP, PAP, CO, CI - Last Documented Arterial Blood Pressure 02/23 - Exam PHYSICAL EXAMINATION: Patient is lying in the bed comfortably, no acute distress, awake alert and oriented.. HEENT: Normocephalic. Neck is supple. Pupils reactive. Nostrils clear. Oral cavity is moist. Neck reveals no JVD, carotid bruits, or thyromegaly. CHEST EXAMINATION: Trachea is central. Symmetrical expansion. Bibasilar crackles and diminished. No wheezing.. CARDIAC: Normal S1, S2 with no gallops. No murmurs ABDOMEN: Soft. Bowel sounds normal. No organomegaly. No abdominal bruits. Extremities: reveal no edema. No clubbing or cyanosis Neurologically awake, alert, oriented x3 with well-coordinated movements. No focal deficits noted Skin: No rash or skin lesions. Psychiatric: Cooperative. Nonsuicidal Musculoskeletal: No joint swelling or deformity. Normal range of motion. - Labs CBC & Chem 7: 06/02/21 04:04 06/02/21 04:04 Labs: Abnormal Lab Results - Last 24 Hours (Table) 05/31/21 05/31/21 Range/Units 05:41 05:41 Neutrophils # 8.1 H (1.3-7.7) k/uL Sodium 130 L (137-145) mmol/L Chloride 93 L (98-107) mmol/L Carbon Dioxide 32 H (22-30) mmol/L Glucose 121 H (74-99) mg/dL AST 66 H (14-36) U/L Alkaline Phosphatase 141 H (38-126) U/L Total Protein 5.4 L (6.3-8.2) g/dL Albumin 2.7 L (3.5-5.0) g/dL Assessment and Plan Assessment: Acute ST elevated [place] status post cardiac catheterization stent placement to the LAD. Acute hypoxic respiratory failure. Patient was on BiPAP post procedure..Currently on NC at 12L/min Hypotension due to Cardiogenic shock. Off pressors now. Acute CHF with ejection fraction less than 20% with global hypokinesis. Hypovolemic hyponatremia due to diuresis. Hypokalemia Elevated liver enzymes DVT prophylaxis. Plan: Patient is being monitored in MICU. Was initially on BiPAP and transition to Ventimask--->NC. Patient is off pressor support now. Patient was started IV Lasix due to pulmonary vascular congestion and effusion.. Patient was started on milrinone drip due to significant pulmonary edema Continue with aspirin, prasugrel and statins. LDL 122. Repeat CBC and CMP. Cardiology and pulmonary is on board. Continue to follow closely. Time with Patient: Greater than 30
[2021-06-01] MEDS: MIDODRINE 5 MG TAB PO SCH ×3 (06:33→18:01)
[2021-06-01] MEDS: FUROSEMIDE 10 MG/ML 4 ML VIAL IV SCH (06:33)
[2021-06-01] MEDS: HEPARIN SODIUM,PORCINE/PF 5,000 UNIT/0.5 ML SYRINGE SQ SCH ×2 (09:51→21:13)
--- NOTE | 2021-06-01 10:40 | P.PN ---
Subjective Progress Note Date: 06/01/21 60-year-old female presents to the emergency department on May 27, complaining of chest pain. She saw Dr. Pinto in the emergency department. The patient was evaluated by cardiology, taken to the catheterization laboratory, and had a stent placed in her LAD. She is back in the intensive care unit. Currently, she is on BiPAP, with settings of IPAP 12, EPAP 6, and 60%. The patient was on IV nitroglycerin at 10 mcg/m. Unfortunately, her blood pressure was a bit low, and they were planning to potentially start norepinephrine. Apparently, the patient does not have any past medical history. The patient does not take any medications on a regular basis, and is a lifelong nonsmoker. White count 13.5, hemoglobin 14.2, hematocrit 41.2, platelet count 322,000. PT 10.1, INR 0.9, and PTT is 21.2. Sodium, potassium, chloride, and CO2 are all normal. Anion gap is normal. BUN is 19, with a creatinine 0.56. AST was 261 with an ALT of 48. Troponin was 12.3. Testing for coronavirus was negative. The patient was minute with a diagnosis of anterolateral ST segment elevation myocardial infarction. Chest x-ray show some mild fluid overload. On 05/28/2021, the patient is status post catheterization and stent placement in LAD. Currently, the patient's in the intensive care unit. She did not use BiPAP last night. She is on a nonrebreather mask. She's getting saline at KVO. She is on norepinephrine at 12 mcg/m. Her chest x-ray looks wet. The patient will get Lasix 40 mg IV push times one. White count 24.7, hemoglobin 14.2, hematocrit 42.6, platelet count 305,000. Sodium 134, potassium 3.9, chlorides 106, CO2 18, anion gap 10, BUN 26, creatinine 0.89. AST 695, ALT 86. Chest x- ray is consistent with fluid overload/CHF. On 05/29/2021 patient seen in follow-up in intensive care unit, she is awake and alert, she is on a nonrebreather mask, and she has been wearing BiPAP support intermittently, she remains on IV diuretics with Lasix 40 mg 3 times daily, she is -1.6 L net fluid balance, her chest x-ray today shows worsened pulmonary infiltrates. Her serum sodium is 128, potassium is 4.4, chloride is 97, BUN is 28 creatinine 0.68. White count is improved and is down to 14.7, hemoglobin is 13.2. Patient has significant chest pain. Patient has had some low blood pressures with systolic in the 70s and 80s, and diastolic in the 50s, she will be started on midodrine. Cardiology is following, does not recommend any initiation of inotropes unless the urine output significantly drops, patient has sinus tachycardia which is thought to be compensatory to cardiogenic shock. Cardiology recommends repeat arterial pressure around 55 or better as low as patient is asymptomatic. Patient continues on aspirin and Effient. Echocardiogram has been reviewed showing severe global hypokinesis and left ventricular systolic function of less than 20%. On 05/30/2021, the patient remains in the intensive care unit post acute [place]. The patient was also in cardiogenic shock. For now, she is on oxygen at 12 L per minute nasal cannula. A repeat chest x-ray was done this morning and the chest x-ray showed ongoing evidence of pulmonary edema and small left-sided pleural effusion. The volume status is probably better compared to past 2 days. Meanwhile, the patient is still being diuresed. The fluid balance is -2.3 L over the past 24 hours and the patient remains in a negative fluid balance. The same time, the patient is being diuresed with IV Lasix 40 mg IV every 8 hours. The blood pressure was soft yesterday and the patient was started on midodrine 5 mg by mouth 3 times a day. He is on aspirin. She is on Effient. No beta blockers have been initiated. Milrinone was started yesterday told by the cardiac output. This is on 0.375 mcg/kg per minute. The patient is seen today 05/31/2021 in follow-up in the intensive care unit. She is post cardiac infarction in cardiogenic shock. The plan may be to return to the [facility] later today. She is currently sitting up in a chair at the bedside. Awake and alert in no acute distress. Denies any chest pain currently. She is remaining in sinus rhythm to sinus tach. She did not utilize the BiPAP last evening which is set at 12/6 and 60% FiO2. She is currently on 4 L/m per nasal cannula. She remains on milrinone drip at 0.375 mcg/kg/m. 0.9 normal saline at 20 miles per hour. Her potassium is being replaced. She really remains on IV Lasix every 8 hours. White count 9.9. Hemoglobin 12.6. Sodium 1:30. Potassium 3.6. Bicarb 32. Creatinine 0.62. Glucose 121. AST 66, ALT is 31. Albumin 2.7. Remains on heparin for DVT prophylaxis. Remains on Effient and aspirin. X-rays showing improved aeration in the mid left lung and bibasilar edema. 10 2020, the patient is still being augmented with milrinone which is running at 0.375 mcg/kg per minute. She is also on Lasix 40 mg IV 3 times a day. She is doing well. Her net fluid balance is negative as the patient is diuresing well. The patient has been a negative fluid balance of 1.1 L 4 yesterday. Note that her oxygenation also improved and the patient is currently on oxygen at 4 L per minute nasal cannula. Her cardiac rhythm is sinus tachycardia. Her mean arterial pressures above 60. She is awake and alert. IV fluids are currently at KVO. No chest pain. No other complaints otherwise. In terms of her blood work, the patient has a white cell count of 9.9 from yesterday. Electrolytes all within normal limits and this needs to be repeated from today. No chest x- ray was performed today. Objective - Vital Signs Vital signs: Vital Signs Temp 97.8 F 06/01/21 04:00 Pulse 113 H 06/01/21 10:00 Resp 15 06/01/21 10:00 BP 84/55 06/01/21 10:00 Pulse Ox 95 06/01/21 09:00 Intake & Output 05/31/21 06/01/21 06/01/21 18:59 06:59 18:59 Intake Total 967.6 587.002 80 Output Total 1650 850 500 Balance -682.4 -262.998 -420 Weight 39.2 kg Intake: IV 267.6 240 80 .9 kvo 240 240 80 Milrinone-D5w Pmx 20 mg 27.6 In Dextrose/Water 1 100ml .bag @ Per Protocol IV . Q0M [facility] Rx#:[id number] Intake, IV Titration 97.002 Amount Milrinone-D5w Pmx 20 mg 97.002 In Dextrose/Water 1 100ml .bag @ Per Protocol IV . Q0M [facility] Rx#:[id number] Oral 700 250 Output: Urine 1650 850 500 Other: Voiding Method Bedpan Bedpan # Voids 0 1 # Bowel Movements 1 ABP, PAP, CO, CI - Last Documented Arterial Blood Pressure 02/23 - Exam GENERAL EXAM: Alert, very pleasant, 60-year-old female, on 4 L per minute nasal cannula HEAD: Normocephalic/atraumatic. EYES: Normal reaction of pupils, equal size. Conjunctiva pink, sclera white. NOSE: Clear with pink turbinates. THROAT: No erythema or exudates. NECK: No masses, no JVD, no thyroid enlargement, no adenopathy. CHEST: No chest wall deformity. Symmetrical expansion. LUNGS: Equal air entry with bibasilar crackles CVS: Regular rate and rhythm, normal S1 and S2, no gallops, no murmurs, no rubs ABDOMEN: Soft, nontender. No hepatosplenomegaly, normal bowel sounds, no guarding or rigidity. EXTREMITIES: No clubbing, no edema, no cyanosis, 1+ pulses and upper and lower extremities. MUSCULOSKELETAL: Muscle strength and tone normal. SPINE: No scoliosis or deformity SKIN: No rashes CENTRAL NERVOUS SYSTEM: Alert and oriented -3. No focal deficits, tone is normal in all 4 extremities. PSYCHIATRIC: Alert and oriented -3. Appropriate affect. Intact judgment and insight. - Labs CBC & Chem 7: 05/31/21 05:41 05/31/21 05:41 Assessment and Plan Plan: [address] elevated myocardial infarction involving anterolateral wall, status post proximal LAD PCI and stenting . The patient also had an Impella placement, right femoral angiogram, right femoral arteriotomy and closure with perclose. Cardiology is considering taking her back to the [facility] later today for furthe r evaluation. Meanwhile, the patient is feeling of any chest pain and the patient is responding to diuresis and she remains on milrinone. 2 Cardiogenic shock, status post Impella placement however this had to be removed related to occlusion and no blood flow to right lower extremity. The patient has adequate pulses in 4 extremities. The patient is currently on milrinone running at 0.375 mcg/kg per minute to augment the cardiac output along with Lasix 40 mg IV every 8 hours. The patient is producing adequate amount of urine output and the patient is a negative fluid balance for now. Electrolytes are being monitored. Renal function is stable for now. 3 Acute chronic CHF, currently echocardiogram shows EF of less than 20% and severe global hypokinesia noted RV is normal. No significant valvular abnormalities. No evidence of any pericardial effusion. Today's chest x-ray showing improving bibasilar and left midlung reticulonodular edema. 4 Acute hypoxic respiratory failure secondary to pulmonary edema, the patient remains on her liters per minute per nasal cannula. Has been off the BiPAP. The patient is diuresing well. 5 Acute elevation of liver enzymes possibly related to CHF 6 Hyponatremia, likely hypervolemic due to acute systolic CHF, improved and the patient's sodium level at 130 Plan: Continue same treatment for now Obtain labs today Wean down the FiO2 slowly to maintain a saturation above 90% Cardiology to make a decision on a repeat catheterization Remains on milrinone Remains on IV diuretics Cardiology may return take her to the [facility] later today for further evaluation We will continue to follow and make further recommendations based on her c linical status
[2021-06-01] MEDS ORDERED: LIDOCAINE 1% INJ 10MG/ML (20 ML MDV) ONE (12:28)
[2021-06-01] MEDS ORDERED: IV FLUID CONTINUATION 500 ML IV ONE (12:30)
[2021-06-01] MEDS ORDERED: MIDAZOLAM 2 MG/2 ML VIAL IV ONE (12:40)
[2021-06-01] MEDS ORDERED: LIDOCAINE 1% INJ 10MG/ML (20 ML MDV) SQ ONE (12:45)
[2021-06-01] MEDS: ASPIRIN 81 MG PO SCH (13:08)
[2021-06-01] MEDS: POTASSIUM CHLORIDE ER 20 MEQ TAB.ER PO SCH (13:08)
[2021-06-01] MEDS: FAMOTIDINE 20 MG TAB PO SCH ×2 (13:08→21:14)
[2021-06-01 13:09] LABS: O2 Sat Blood Gas 69.6 %
[2021-06-01] MEDS: PRASUGREL 10 MG TAB PO SCH (13:09)
[2021-06-01 13:11] LABS: O2 Sat Blood Gas 65.5 %
[2021-06-01] MEDS ORDERED: SODIUM CHLORIDE 0.9% 1,000 ML IV ONE (13:12)
[2021-06-01] MEDS: NOREPINEPHRINE 4 MG in SODIUM CHLORIDE 0.9% 250 ML IV SCH (15:16)
[2021-06-01] MEDS: SODIUM CHLORIDE 0.9% 1,000 ML IV SCH (15:17)
--- NOTE | 2021-06-01 16:03 | XR ---
EXAMINATION TYPE: XR chest 1V portable DATE OF EXAM: 06/01/2021 COMPARISON: NONE HISTORY: Status post central venous catheter placement TECHNIQUE: Single frontal view of the chest is obtained. FINDINGS: There is been interval placement of a right jugular central venous catheter, distal tip is overlying the pulmonary artery. There is no evident pneumothorax. No other significant interval deal ge. IMPRESSION: No evident complication status post PA catheter placement.
--- NOTE | 2021-06-01 18:00 | P.CARDCATH ---
Description of Procedure: PROCEDURES PERFORMED: Right heart catheterization INDICATION: Shock status post LAD PCI HISTORY: Patient is a pleasant 60-year-old female who had late presenting anterior lateral PR with proximal LAD stenosis. This was complicated by cardiogenic shock and initially a Impella CP was placed however this was occlusive and therefore was withdrawn. Patient has had hypotension and heart failure and initially was given diuretics with borderline blood pressures. Blood pressures of somewhat stabilized however patient remains tachycardic, lightheaded and short of breath. Secondary to fluid status as well as to evaluate cardiac output, right heart catheterization was recommended. CONSENT:I have discussed the risks, benefits and alternative therapies for the above-mentioned procedure and for both sedation/analgesia as well as necessary blood product administration, if indicated, as they pertain to this patient. The patient has indicated understanding and acceptance of the risks and procedures discussed. PROCEDURE: After the risks, benefits and alternatives of the above mentioned procedure explained in detail with the patient, informed consent was obtained. Patient was taken to the catheterization lab and prepped and draped in usual fashion. 1% lidocaine was used to anesthetize the right internal jugular site. Next a 8-[place] sheath was placed using ultrasound guidance and micro catheter technique. An 8-[place]Graham catheter was inserted into the right atrium, right ventricle, pulmonary artery and pulmonary Wedge positions and pressure measurements were obtained as well as oxygen saturations. Thermodilution was obtained. The [place]Graham catheter was secured in place and the sheath was sutured in place. The patient tolerated the procedure well. Patient was transported back to the post catheterization holding area in stable condition. Conscious Sedation: Patient was monitored under the direct supervision of vision of myself for conscious sedation using Versed and fentanyl for a total duration of 24 minutes HEMODYNAMICS: Right Atrium: 1 Right ventricle: 15/1 PA: 13/5, mean 9 Pulmonary capillary wedge: 6 Cardiac output by Aria: 3.67 L/m Cardiac index by Aria: 2.96 L/m/m Cardiac output by thermodilution: 3.72 L/m Cardiac index by thermodilution: 3.0 L/m/m FINAL IMPRESSION: 1. Normal cardiac output 2. Low left and right sided filling pressures PLAN: 1. Leave the [place]Graham catheter in place and monitor response of IV fluids.
[2021-06-01 21:22] LABS: ABG Base Excess 7.1 mmol/L; ABG HCO3 31 mmol/L (21-25); ABG Oxygen Saturation 57.7 % (94-97); ABG PCO2 41 mmHg (35-45); ABG PH 7.48 (7.35-7.45); ABG TCO2 32 mmol/L (19-24)
[2021-06-01 21:31] LABS: ABG Base Excess 6.6 mmol/L; ABG HCO3 29 mmol/L (21-25); ABG Oxygen Saturation 93.1 % (94-97); ABG PCO2 34 mmHg (35-45); ABG PH 7.54 (7.35-7.45); ABG TCO2 30 mmol/L (19-24); Allen Test Performed? Yes
[2021-06-01 21:34] LABS: ABG PO2 30 mmHg (83-108); Allen Test Performed? no
[2021-06-01 21:35] LABS: ABG PO2 58 mmHg (83-108)
[2021-06-01] MEDS ORDERED: MILRINONE-D5W PMX 20 MG in DEXTROSE/WATER 1 100ML.BAG IV SCH (22:45)
[2021-06-02 04:54] LABS: Basophils % (A) 0 %; Eosinophils # (A) 0.2 k/uL (0-0.7); Eosinophils % (A) 2 %; HCT 32.2 % (34.0-46.0); HGB 11.3 gm/dL (11.4-16.0); Lymphocytes # (A) 0.8 k/uL (1.0-4.8); Lymphocytes % (A) 10 %; MCH 31.9 pg (25.0-35.0); MCHC 34.9 g/dL (31.0-37.0); MCV 91.3 fL (80.0-100.0); Mean Platelet Volume 8.7; Monocytes # (A) 0.8 k/uL (0-1.0); Monocytes % (A) 9 %; Neutrophils # (A) 6.8 k/uL (1.3-7.7); Neutrophils % (A) 78 %; Platelet Count 213 k/uL (150-450); RBC 3.53 m/uL (3.80-5.40); RDW 13.1 % (11.5-15.5); WBC 8.8 k/uL (3.8-10.6)
[2021-06-02] MEDS: SODIUM CHLORIDE 0.9% 1,000 ML IV SCH (05:02)
[2021-06-02 05:23] LABS: African American GFR (CKD) >90 (>60 ml/min/1.73 sqM); Anion Gap 3 mmol/L; Blood Urea Nitrogen 10 mg/dL (7-17); Calcium 8.1 mg/dL (8.4-10.2); Carbon Dioxide 27 mmol/L (22-30); Chloride 99 mmol/L (98-107); Glucose 111 mg/dL (74-99); Non-African American GFR(CKD) >90 (>60 ml/min/1.73 sqM); Potassium 4.2 mmol/L (3.5-5.1); Sodium 129 mmol/L (137-145)
[2021-06-02] MEDS: MIDODRINE 5 MG TAB PO SCH ×3 (06:55→17:26)
--- NOTE | 2021-06-02 08:07 | XR ---
EXAMINATION TYPE: XR chest 1V DATE OF EXAM: 06/02/2021 COMPARISON: 06/01/2021 INDICATION: CHF TECHNIQUE: Single frontal view of the chest is obtained. FINDINGS: The heart size is normal. The pulmonary vasculature is normal. Bibasilar infiltrates are present. There is some silhouetting of the left diaphragm. Findings are wor sening over the interval IMPRESSION: 1. Developing bibasilar infiltrates. Correlate for atelectasis and pneumonia. Atypical edema is consi dered less likely.
[2021-06-02] MEDS: POTASSIUM CHLORIDE ER 20 MEQ TAB.ER PO SCH (09:31)
[2021-06-02] MEDS: PRASUGREL 10 MG TAB PO SCH (09:31)
[2021-06-02] MEDS: FAMOTIDINE 20 MG TAB PO SCH ×2 (09:32→20:05)
[2021-06-02] MEDS: HEPARIN SODIUM,PORCINE/PF 5,000 UNIT/0.5 ML SYRINGE SQ SCH ×2 (09:32→20:05)
[2021-06-02] MEDS: ASPIRIN 81 MG PO SCH (09:32)
--- NOTE | 2021-06-02 10:40 | P.PN ---
Subjective Progress Note Date: 06/02/21 Principal diagnosis: Shortness of breath, hypoxia On 05/29/2021 patient seen in follow-up in intensive care unit, she is awake and alert, she is on a nonrebreather mask, and she has been wearing BiPAP support intermittently, she remains on IV diuretics with Lasix 40 mg 3 times daily, she is -1.6 L net fluid balance, her chest x-ray today shows worsened pulmonary infiltrates. Her serum sodium is 128, potassium is 4.4, chloride is 97, BUN is 28 creatinine 0.68. White count is improved and is down to 14.7, hemoglobin is 13.2. Patient has significant chest pain. Patient has had some low blood pressures with systolic in the 70s and 80s, and diastolic in the 50s, she will be started on midodrine. Cardiology is following, does not recommend any initiation of inotropes unless the urine output significantly drops, patient has sinus tachycardia which is thought to be compensatory to cardiogenic shock. Cardiology recommends repeat arterial pressure around 55 or better as low as patient is asymptomatic. Patient continues on aspirin and Effient. Echocardiogram has been reviewed showing severe global hypokinesis and left ventricular systolic function of less than 20%. On 06/02/2021 patient seen in follow-up in the intensive care unit, yesterday she was taken back to the [facility] for insertion of [place]-Graham catheter for evaluation filling pressures, her filling pressures were low, and cardiac output and index were within normal limits with cardiac output of 3.67 L/m, and cardiac index of 2.96 L/m/m. PA pressure was 13/5, and pulmonary wedge pressure was 6. Patient is currently on 8 L per partial rebreather mask, she feels more comfortable with the mask, denies any chest pain, she stated she had some limited cough last night, no phlegm production, percent is 99-100%, she can probably wean down from the partial rebreather. She is afebrile, her blood pr essure is in the 80s over 50s, most recent blood pressure this morning is 91/64. PA pressure is 24/19, her CVP is 10. Her latest cardiac output is 3.6. Lasix is on hold, she does in sinus mechanism, tachycardic with a rate of 111-124, no fever or chills, patient has been voiding, she has produced 1.7 L. Urine output, however she is in positive fluid balance of 760 mL over the last 24 hours, no JVD, no lower extremity swelling, lung sounds reveal essentially clear breath sounds, today's chest x-ray has been reviewed showing developing bibasilar infiltrates correlate atelectasis and pneumonia. These labs have been reviewed, white blood cell, 3.8, hemoglobin is 11.3, serum sodium is 129, p otassium is 4.2, BUN is 10, creatinine 0.49, anion gap is 3, and CO2 is 27. Patient is tolerating oral intake, no nausea vomiting or diarrhea. She remains on subcu heparin 5000 units every 12 hours, she has been started on midodrine 5 mg 3 times a day for blood pressure support, she remains on milrinone infusion at 0.37 mics per kilo per minute, the Levophed has been off, and she is on 0.9 normal saline at rate of 80 ML per hour. Neurologically patient is intact, slightly fatigued, but no acute distress, breathing comfortably, follow no commands, moving all 4 extremities, distal pulses are palpable, skin is warm dry and intact. Objective - Vital Signs Vital signs: Vital Signs Temp 98.1 F 06/02/21 08:00 Pulse 111 H 06/02/21 10:00 Resp 15 06/02/21 10:00 BP 91/64 06/02/21 10:00 Pulse Ox 100 06/02/21 10:00 Intake & Output 06/01/21 06/02/21 06/02/21 18:59 06:59 18:59 Intake Total 1170 1340 493.21 Output Total 1100 650 300 Balance 70 690 193.21 Weight 42.7 kg Intake: IV 770 1040 240 .9 kvo 100 CO/CI 20 Sodium Chloride 0.9% 1, 400 1040 240 000 ml @ 80 mls/hr IV . [id number] [facility] Rx#:[id number] Intake, IV Titration 13.21 Amount Milrinone-D5w Pmx 20 mg 13.21 In Dextrose/Water 1 100ml .bag @ 0.375 MCG/KG/MIN 4 .41 mls/hr IV .[id number] [facility] Rx#:[id number] Oral 400 300 240 Output: Urine 1100 650 300 Other: Voiding Method Bedpan Bedpan # Voids 1 ABP, PAP, CO, CI - Last Documented Arterial Blood Pressure 8/4 Pulmonary Artery Pressure 24/19 Cardiac Output 3.6 Cardiac Index 3.6 - Exam GENERAL EXAM: Alert, very pleasant, 60-year-old white female, on 100% nonrebreather mask alternating with BiPAP support with FiO2 of 60%, comfortable in no apparent distress. HEAD: Normocephalic/atraumatic. EYES: Normal reaction of pupils, equal size. Conjunctiva pink, sclera white. NOSE: Clear with pink turbinates. Right IJ [place]-G[place] catheter in place THROAT: No erythema or exudates. NECK: No masses, no JVD, no thyroid enlargement, no adenopathy. CHEST: No chest wall deformity. Symmetrical expansion. LUNGS: Equal air entry with bibasilar crackles CVS: Regular rate and rhythm, normal S1 and S2, no gallops, no murmurs, no rubs ABDOMEN: Soft, nontender. No hepatosplenomegaly, normal bowel sounds, no gu arding or rigidity. EXTREMITIES: No clubbing, no edema, no cyanosis, 2+ pulses and upper and lower e xtremities. MUSCULOSKELETAL: Muscle strength and tone normal. SPINE: No scoliosis or deformity SKIN: No rashes CENTRAL NERVOUS SYSTEM: Alert and oriented -3. No focal deficits, tone is normal in all 4 extremities. PSYCHIATRIC: Alert and oriented -3. Appropriate affect. Intact judgment and insight. - Labs CBC & Chem 7: 06/02/21 04:04 06/02/21 04:04 Labs: Abnormal Lab Results - Last 24 Hours (Table) 06/01/21 06/01/21 06/02/21 Range/Units 21:19 21:29 04:04 RBC 3.53 L (3.80-5.40) m/uL Hgb 11.3 L (11.4-16.0) gm/dL Hct 32.2 L (34.0-46.0) % Lymphocytes # 0.8 L (1.0-4.8) k/uL ABG pH 7.48 H 7.54 H (7.35-7.45) ABG pCO2 34 L (35-45) mmHg ABG pO2 30 L* 58 L* (83-108) mmHg ABG HCO3 31 H 29 H (21-25) mmol/L ABG Total CO2 32 H 30 H (19-24) mmol/L ABG O2 Saturation 57.7 L 93.1 L (94-97) % Sodium (137-145) mmol/L Creatinine (0.52-1.04) mg/dL Glucose (74-99) mg/dL Calcium (8.4-10.2) mg/dL 06/02/21 Range/Units 04:04 RBC (3.80-5.40) m/uL Hgb (11.4-16.0) gm/dL Hct (34.0-46.0) % Lymphocytes # (1.0-4.8) k/uL ABG pH (7.35-7.45) ABG pCO2 (35-45) mmHg ABG pO2 (83-108) mmHg ABG HCO3 (21-25) mmol/L ABG Total CO2 (19-24) mmol/L ABG O2 Saturation (94-97) % Sodium 129 L (137-145) mmol/L Creatinine 0.47 L (0.52-1.04) mg/dL Glucose 111 H (74-99) mg/dL Calcium 8.1 L (8.4-10.2) mg/dL Assessment and Plan Plan: Assessment: #1. Acute ST elevated myocardial infarction involving anterolateral wall, statu s post proximal LAD PCI, and this was thought to be embolic in nature #2. Cardiogenic shock, status post Impella placement however this had to be removed related to occlusion and no blood flow to right lower extremity #3. Acute chronic CHF, currently echocardiogram shows EF of less than 20% and severe global hypokinesia #4. Lifetime nonsmoker #5. Acute elevation of liver enzymes possibly related to CHF #6. Hyponatremia, likely hypervolemic due to acute systolic CHF Plan: Continue current medical treatment Not requiring any vasopressor support Continue midodrine Today's chest x-ray has been reviewed, labs reviewed Wean FiO2 Cardiac catheterization results have been reviewed Filling pressures are low with normal cardiac output Hold diuretics Continue monitoring in the intensive care unit I performed a history & physical examination of the patient and discussed their management with my nurse practitioner, Amy Vines. I reviewed the nurse practitioner's note and agree with the documented findings and plan of care. Lung sounds are positive for diffuse wheezes throughout the lung dias. The findings and the impression was discussed with the patient. I attest to the documentation by the nurse practitioner. Time with Patient: Less than 30
--- NOTE | 2021-06-02 11:23 | P.PN ---
Subjective Progress Note Date: 06/02/21 This is a 60-year-old female who was admitted to the hospital to anterolateral CO and cardiac shock. Patient had stent placement of the LAD. Patient's LV function is severely impaired, according to the echocardiogram. Patient is also dealing with hyponatremia. Patient is on nonrebreather. Getting IV Lasix. Chest x-ray showed ongoing evidence of pulmonary edema and small left-sided pleural effusion. Patient is -2.3 L of fluid balance over the last 24 hours. She is currently on Lasix . Patient is not on beta trevin because of hypotension. She was also put on metered in 5 mg by mouth 3 times daily. Patient prognosis still guarded. However, patient denies any chest pain or shortness of breath and seemed to be optimistic 05/31/2021: This patient seemed to be doing better today. Denies any chest pain. Looks frail and weak. No respiratory distress. Chest x-ray shows improvement. Her blood pressure is more stable on milrinone. Lungs are relatively clear. Heart is regular. Dr. Smart is going to do a right heart catheterization to see if she needs LVAD. We'll repeat echocardiogram tomorrow. Increase activity slowly. 06/02/2021: This patient had [place]-Graham catheter insertion, yesterday. She was found to have low filling pressures and a reasonable cardiac output. Her d iuretics have been discontinued and patient has been given IV fluids. Her CVP about 10. Patient doesn't have any JVD or peripheral edema. Lungs appeared to be clear. Chest x-ray does show some atelectatic changes at the bases. Patient however still tachycardic. Blood pressure is running in the 90 systolic range. At this point. Hollister-Graham is not working well and that can be removed. We may try adding digoxin. Because of the sinus tachycardia and CHF. We'll also repeat the echocardiogram to assess LV function. We'll increase activity as tolerated. Prognosis is guarded Objective - Vital Signs Vital signs: Vital Signs Temp 98.1 F 06/02/21 08:00 Pulse 126 H 06/02/21 11:00 Resp 16 06/02/21 11:00 BP 91/64 06/02/21 11:00 Pulse Ox 98 06/02/21 11:00 Intake & Output 06/01/21 06/02/21 06/02/21 18:59 06:59 18:59 Intake Total 1170 1340 577.61 Output Total 1100 650 600 Balance 70 690 -22.39 Weight 42.7 kg Intake: IV 770 1040 320 .9 kvo 100 CO/CI 20 Sodium Chloride 0.9% 1, 400 1040 320 000 ml @ 80 mls/hr IV . [id number] [facility] Rx#:[id number] Intake, IV Titration 17.61 Amount Milrinone-D5w Pmx 20 mg 17.61 In Dextrose/Water 1 100ml .bag @ 0.375 MCG/KG/MIN 4 .41 mls/hr IV .[id number] [facility] Rx#:[id number] Oral 400 300 240 Output: Urine 1100 650 600 Other: Voiding Method Bedpan Bedpan Bedpan # Voids 1 ABP, PAP, CO, CI - Last Documented Arterial Blood Pressure 8/4 Pulmonary Artery Pressure 30/26 Cardiac Output 3.6 Cardiac Index 3.6 - Exam GENERAL EXAM: Patient is alert and oriented and appears to be pale and cachectic HEENT: Normocephalic. Normal reaction of pupils, equal size, normal range of extraocular motion. No erythema or exudates in the throat. NECK: No masses, no nuchal rigidity. CHEST: No chest wall deformity. LUNGS: Equal air entry with no crackles or wheeze. HEART: 1 and S2 heard. Irregular ABDOMEN: No hepatosplenomegaly, normal bowel sounds, no guarding or rigidity. SKIN: No rashes CENTRAL NERVOUS SYSTEM: No focal deficits. EXTREMITIES: No cyanosis, clubbing or edema. - Labs CBC & Chem 7: 06/02/21 04:04 06/02/21 04:04 Labs: Abnormal Lab Results - Last 24 Hours (Table) 06/01/21 06/01/21 06/02/21 Range/Units 21:19 21:29 04:04 RBC 3.53 L (3.80-5.40) m/uL Hgb 11.3 L (11.4-16.0) gm/dL Hct 32.2 L (34.0-46.0) % Lymphocytes # 0.8 L (1.0-4.8) k/uL ABG pH 7.48 H 7.54 H (7.35-7.45) ABG pCO2 34 L (35-45) mmHg ABG pO2 30 L* 58 L* (83-108) mmHg ABG HCO3 31 H 29 H (21-25) mmol/L ABG Total CO2 32 H 30 H (19-24) mmol/L ABG O2 Saturation 57.7 L 93.1 L (94-97) % Sodium (137-145) mmol/L Creatinine (0.52-1.04) mg/dL Glucose (74-99) mg/dL Calcium (8.4-10.2) mg/dL 06/02/21 Range/Units 04:04 RBC (3.80-5.40) m/uL Hgb (11.4-16.0) gm/dL Hct (34.0-46.0) % Lymphocytes # (1.0-4.8) k/uL ABG pH (7.35-7.45) ABG pCO2 (35-45) mmHg ABG pO2 (83-108) mmHg ABG HCO3 (21-25) mmol/L ABG Total CO2 (19-24) mmol/L ABG O2 Saturation (94-97) % Sodium 129 L (137-145) mmol/L Creatinine 0.47 L (0.52-1.04) mg/dL Glucose 111 H (74-99) mg/dL Calcium 8.1 L (8.4-10.2) mg/dL Assessment and Plan (1) Cardiac shock syndrome Current Visit: Yes Status: Acute Code(s): R57.0 - CARDIOGENIC SHOCK SNOMED Code(s): 70674004 (2) ST elevation myocardial infarction (STEMI) Current Visit: Yes Status: Acute Code(s): I21.3 - ST ELEVATION (STEMI) MYOCARDIAL INFARCTION OF [facility] SITE SNOMED Code(s): 07079177 (3) Cardiomyopathy Current Visit: Yes Status: Acute Code(s): I42.9 - CARDIOMYOPATHY, UNSPECIFIED SNOMED Code(s): 63866044 (4) Acute systolic CHF (congestive heart failure) Current Visit: Yes Status: Acute Code(s): I50.21 - ACUTE SYSTOLIC (CONGESTIVE) HEART FAILURE SNOMED Code(s): 730540978 Plan: Patient seemed to be clinically stable without any complaints of shortness of breath. No JVD or peripheral edema. Patient continues to be sinus tachycardic. I'm going to repeat the echocardiogram. I may add small dose of digoxin if necessary
[2021-06-02] MEDS: NOREPINEPHRINE 4 MG in SODIUM CHLORIDE 0.9% 250 ML IV SCH (12:42)
--- NOTE | 2021-06-02 17:43 | ECHOF ---
Referral Reason:cardiogenic shock MEASUREMENTS -------- HEIGHT: 132.1 cm WEIGHT: 38.1 kg BP: FINDINGS -------- Sinus rhythm. This was a technically adequate study. Echo done : Limited study for Lv function. Overall left ventricular systolic function is severely impaired with, an EF between 20 - 25 %. Basa l anterior LV wall motion is akinetic. Mid anterior LV wall motion is akinetic. Mid anterosepta l LV wall motion is hypokinetic. Apical anterior LV wall motion is hypokinetic. Apical lateral LV wall motion is hypokinetic. Apical inferior LV wall motion is hypokinetic. Apical septum LV wall motion is hypokinetic. Echo free space represents a pericardial fat pad. CONCLUSIONS -------- 1. Echo done : Limited study for Lv function. 2. Overall left ventricular systolic function is severely impaired with, an EF between 20 - 25 %. 3. Basal anterior LV wall motion is akinetic. 4. Mid anterior LV wall motion is akinetic. 5. Mid anteroseptal LV wall motion is hypokinetic. 6. Apical anterior LV wall motion is hypokinetic. 7. Apical lateral LV wall motion is hypokinetic. 8. Apical inferior LV wall motion is hypokinetic. 9. Apical septum LV wall motion is hypokinetic. 10. Echo free space represents a pericardial fat pad. [employer]: Nely Marquez RDCS
--- NOTE | 2021-06-02 22:16 | P.PN ---
Subjective Progress Note Date: 06/01/21 Principal diagnosis: Acute ST elevated ND Patient is a 60-year-old female without significant past medical history presents to ER with complaints of chest pain. Patient states that last night she ate chicken Rober for dinner and since then she has been having nauseous and diaphoretic. Patient initially thought it flulike symptoms and food poisoning. Patient is still having heaviness in the chest mainly in the mid retrosternal and heavy pressure which made her come to ER today morning.. He denies any radiation of the pain. Denies any associated shortness of breath. No fever no chills. No cough or sputum production. Denies any recent illnesses. Patient had an EKG in the ER showed ST elevation in the anterior leads and STEMI team was activated. Chest x-ray showed there is some interstitial changes within the lungs. Correlate for pneumonia. Follow-up suggested. Laboratory data showed WBC 13.5 hemoglobin 14.1 platelets 322 lymphocytes 0.7 Sodium 137 potassium 4.3 chloride 105 bicarb is 24 BUN 19 and creatinine 0.56 AST 261 ALT 248 and alk phos 230 troponin 12.3 and coronavirus PCR not detected. 05/28/2021 Patient is in the MICU. Lying in the bed. Awake alert oriented x3. Currently on Ventimask. Patient also shortness of breath and nausea. Currently off pressor support. 2D echocardiogram showed there is severe global hypokinesis of LV. Overall left ventricular systolic function is severely impaired with ejection fraction less than 20%. Chest x-ray showed mild interval worsening in the acute cardiopulmonary disease. Findings are nonspecific and could reflect an acute inflammatory process or pulmonary edema. Short-term follow-up and clinical correlation is recommended. Patient was started on Lasix IV 40 mg every 8 hourly as blood pressure tolerates. Blood pressure is on the lower side. No complaints of dizziness or lightheadedness. Denies any diarrhea. Patient is able to tolerate oral diet slowly. WBC 24.7 hemoglobin 14.1 platelets 305 BUN 26 and creatinine 0.89 AST 695 ALT 86 alk phos 156 and total cholesterol is 206 Cardiology and pulmonary is on board. 05/29/2021 Patient is currently lying in the bed. Saturating well via nasal cannula at 12 L. Patient is diuresing well with IV Lasix. Patient states that her breathing is better today. Chest x-ray showed moderate interval worsening in the bilateral lung infiltrates. Possible developing pleural effusions. Patient was started midodrine due to hypotension. Laboratory data showed WBC trending down to 14.7 hemoglobin 13.1 platelets 217 Sodium 128 potassium 4.4 thyroid 97, BUN 28 and creatinine 0.68, Calcium 8.2 05/30/2021 Patient is in MICU. Currently being continued on IV Lasix and midodrine. Also on milrinone drip. Blood pressure is at the borderline. Diuresing well. However sodium level dropped to 126 today. No complaints of chest pain. Shortness of breath is improving. Patient is able to tolerate 25% of the meal. Complains of nausea. No episodes of vomiting. No abdominal pain or diarrhea. No headache or dizziness or lightheadedness. No dysuria. Laboratory showed WBC trending down to 10.7 hemoglobin 12.4 and platelets 218 Sodium 126, potassium 3.3, chloride 92, BUN 19 and creatinine 0.6 Patient was given 20 mEq of potassium today. 05/31/2021 Patient is in the MICU. Currently sitting in the chair. Awake alert and oriented times instructions better today. Currently requiring oxygen at 2 L via nasal cannula. Patient is able to walk few steps. Patient is being continued on milrinone drip and also on IV Lasix every 8 hourly. Laboratory showed sodium 130 potassium 3.6 bicarb 32 and creatinine level 0.62, WBC 9.9 and hemoglobin 12.6 Chest x-ray showed improved aeration in the mid left lung and bibasilar edema. Pulmonary and cardiology is on board. Discussed with the patient and her at bedside in detail. 06/01/2021 Patient is in the MICU. Awake alert and oriented x3. Blood pressure is on the lower side. Patient is being continued on milrinone drip and also IV Lasix. Currently requiring oxygen at 4 L via nasal cannula. Patient still having sinus tachycardia. Tolerating oral diet. Cardiology is planning for right heart catheterization today. Patient has been afebrile. No nausea vomiting or abdominal pain or diarrhea. No headache or dizziness. Lab data showed WBC 9.9 hemoglobin 12.6 platelets 241 Sodium 130 potassium 3.6 chloride 93 bicarb is 32 BUN 59 creatinine 0.62 Current medications reviewed. Objective - Vital Signs Vital signs: Vital Signs Temp 97.6 F 06/01/21 12:00 Pulse 126 H 06/01/21 19:00 Resp 21 06/01/21 19:00 BP 92/60 06/01/21 19:00 Pulse Ox 92 L 06/01/21 19:00 Intake & Output 06/01/21 06/01/21 06/02/21 06:59 18:59 06:59 Intake Total 437.286 6736 80 Output Total 850 1100 Balance -262.998 70 80 Weight 39.2 kg Intake: IV 240 770 80 .9 kvo 240 100 CO/CI 20 Sodium Chloride 0.9% 1, 400 80 000 ml @ 80 mls/hr IV . [id number] [facility] Rx#:[id number] Intake, IV Titration 97.002 Amount Milrinone-D5w Pmx 20 mg 97.002 In Dextrose/Water 1 100ml .bag @ Per Protocol IV . Q0M [facility] Rx#:[id number] Oral 250 400 Output: Urine 850 1100 Other: Voiding Method Bedpan # Voids 0 1 ABP, PAP, CO, CI - Last Documented Arterial Blood Pressure 8/ Pulmonary Artery Pressure 28/ - Exam PHYSICAL EXAMINATION: Patient is lying in the bed comfortably, no acute distress, awake alert and oriented.. HEENT: Normocephalic. Neck is supple. Pupils reactive. Nostrils clear. Oral cavity is moist. Neck reveals no JVD, carotid bruits, or thyromegaly. CHEST EXAMINATION: Trachea is central. Symmetrical expansion. Bibasilar crackles and diminished. No wheezing.. CARDIAC: Normal S1, S2 with no gallops. No murmurs ABDOMEN: Soft. Bowel sounds normal. No organomegaly. No abdominal bruits. Extremities: reveal no edema. No clubbing or cyanosis Neurologically awake, alert, oriented x3 with well-coordinated movements. No focal deficits noted Skin: No rash or skin lesions. Psychiatric: Cooperative. Nonsuicidal Musculoskeletal: No joint swelling or deformity. Normal range of motion. - Labs CBC & Chem 7: 06/02/21 04:04 06/02/21 04:04 Labs: Abnormal Lab Results - Last 24 Hours (Table) 06/01/21 06/01/21 Range/Units 21:19 21:29 ABG pH 7.48 H 7.54 H (7.35-7.45) ABG pCO2 34 L (35-45) mmHg ABG pO2 30 L* 58 L* (83-108) mmHg ABG HCO3 31 H 29 H (21-25) mmol/L ABG Total CO2 32 H 30 H (19-24) mmol/L ABG O2 Saturation 57.7 L 93.1 L (94-97) % Assessment and Plan Assessment: Acute ST elevated ND status post cardiac catheterization stent placement to the LAD. Acute hypoxic respiratory failure. Patient was on BiPAP post procedure..Currently on NC at 12L/min Hypotension due to Cardiogenic shock. Off pressors now. Acute CHF with ejection fraction less than 20% with global hypokinesis. Hypovolemic hyponatremia due to diuresis. Hypokalemia Elevated liver enzymes DVT prophylaxis. Plan: Patient is being monitored in MICU. Was initially on BiPAP and transition to Ventimask--->NC. Patient is off pressor support now. Patient was started IV Lasix due to pulmonary vascular congestion and effusion.. Patient was started on milrinone drip due to significant pulmonary edema Continue with aspirin, prasugrel and statins. LDL 122. Repeat CBC and CMP. Cardiology and pulmonary is on board. Continue to follow closely. Time with Patient: Greater than 30
--- NOTE | 2021-06-02 22:20 | P.PN ---
Subjective Progress Note Date: 06/02/21 Principal diagnosis: Acute ST elevated CO Patient is a 60-year-old female without significant past medical history presents to ER with complaints of chest pain. Patient states that last night she ate chicken Rober for dinner and since then she has been having nauseous and diaphoretic. Patient initially thought it flulike symptoms and food poisoning. Patient is still having heaviness in the chest mainly in the mid retrosternal and heavy pressure which made her come to ER today morning.. He denies any radiation of the pain. Denies any associated shortness of breath. No fever no chills. No cough or sputum production. Denies any recent illnesses. Patient had an EKG in the ER showed ST elevation in the anterior leads and STEMI team was activated. Chest x-ray showed there is some interstitial changes within the lungs. Correlate for pneumonia. Follow-up suggested. Laboratory data showed WBC 13.5 hemoglobin 14.1 platelets 322 lymphocytes 0.7 Sodium 137 potassium 4.3 chloride 105 bicarb is 24 BUN 19 and creatinine 0.56 AST 261 ALT 248 and alk phos 230 troponin 12.3 and coronavirus PCR not detected. 05/28/2021 Patient is in the MICU. Lying in the bed. Awake alert oriented x3. Currently on Ventimask. Patient also shortness of breath and nausea. Currently off pressor support. 2D echocardiogram showed there is severe global hypokinesis of LV. Overall left ventricular systolic function is severely impaired with ejection fraction less than 20%. Chest x-ray showed mild interval worsening in the acute cardiopulmonary disease. Findings are nonspecific and could reflect an acute inflammatory process or pulmonary edema. Short-term follow-up and clinical correlation is recommended. Patient was started on Lasix IV 40 mg every 8 hourly as blood pressure tolerates. Blood pressure is on the lower side. No complaints of dizziness or lightheadedness. Denies any diarrhea. Patient is able to tolerate oral diet slowly. WBC 24.7 hemoglobin 14.1 platelets 305 BUN 26 and creatinine 0.89 AST 695 ALT 86 alk phos 156 and total cholesterol is 206 Cardiology and pulmonary is on board. 05/29/2021 Patient is currently lying in the bed. Saturating well via nasal cannula at 12 L. Patient is diuresing well with IV Lasix. Patient states that her breathing is better today. Chest x-ray showed moderate interval worsening in the bilateral lung infiltrates. Possible developing pleural effusions. Patient was started midodrine due to hypotension. Laboratory data showed WBC trending down to 14.7 hemoglobin 13.1 platelets 217 Sodium 128 potassium 4.4 thyroid 97, BUN 28 and creatinine 0.68, Calcium 8.2 05/30/2021 Patient is in MICU. Currently being continued on IV Lasix and midodrine. Also on milrinone drip. Blood pressure is at the borderline. Diuresing well. However sodium level dropped to 126 today. No complaints of chest pain. Shortness of breath is improving. Patient is able to tolerate 25% of the meal. Complains of nausea. No episodes of vomiting. No abdominal pain or diarrhea. No headache or dizziness or lightheadedness. No dysuria. Laboratory showed WBC trending down to 10.7 hemoglobin 12.4 and platelets 218 Sodium 126, potassium 3.3, chloride 92, BUN 19 and creatinine 0.6 Patient was given 20 mEq of potassium today. 05/31/2021 Patient is in the MICU. Currently sitting in the chair. Awake alert and oriented times instructions better today. Currently requiring oxygen at 2 L via nasal cannula. Patient is able to walk few steps. Patient is being continued on milrinone drip and also on IV Lasix every 8 hourly. Laboratory showed sodium 130 potassium 3.6 bicarb 32 and creatinine level 0.62, WBC 9.9 and hemoglobin 12.6 Chest x-ray showed improved aeration in the mid left lung and bibasilar edema. Pulmonary and cardiology is on board. Discussed with the patient and her at bedside in detail. 06/01/2021 Patient is in the MICU. Awake alert and oriented x3. Blood pressure is on the lower side. Patient is being continued on milrinone drip and also IV Lasix. Currently requiring oxygen at 4 L via nasal cannula. Patient still having sinus tachycardia. Tolerating oral diet. Cardiology is planning for right heart catheterization today. Patient has been afebrile. No nausea vomiting or abdominal pain or diarrhea. No headache or dizziness. Lab data showed WBC 9.9 hemoglobin 12.6 platelets 241 Sodium 130 potassium 3.6 chloride 93 bicarb is 32 BUN 59 creatinine 0.62 06/02/2021 Patient is status post left heart catheterization showed low left and right- sided filling pressures. Normal cardiac output. Patient is in MICU. Currently Lasix has been discontinued and continued milrinone drip. Systolic blood pressures in the upper 90s. Denies any complaints of dizziness or lightheadedness. Patient has been afebrile. Sitting in the chair comfortably. No cough or sputum production. Chest x-ray today showed developing bibasilar infiltrates. Correlate for atelectasis or pneumonia. Atypical edema is considered less likely. Limited view echocardiogram was done today showed overall left ventricular systolic function severely impaired with ejection fraction 20 to 25%. Laboratory data showed WBC 8.8 hemoglobin 11.3 and platelets 213 Sodium 123 potassium 4.2 chloride 99 BUN 10 and creatinine 0.47 and calcium 8.1 Current medications reviewed. Objective - Vital Signs Vital signs: Vital Signs Temp 99.1 F 06/02/21 20:00 Pulse 129 H 06/02/21 21:00 Resp 20 06/02/21 21:00 BP 94/63 06/02/21 21:00 Pulse Ox 95 06/02/21 21:00 Intake & Output 06/02/21 06/02/21 06/03/21 06:59 18:59 06:59 Intake Total 1340 1242.01 200 Output Total 650 1300 200 Balance 690 -57.99 0 Weight 42.7 kg Intake: IV 1040 400 Sodium Chloride 0.9% 1, 1040 400 000 ml @ 80 mls/hr IV . [id number] [facility] Rx#:[id number] Intake, IV Titration 22.01 Amount Milrinone-D5w Pmx 20 mg 22.01 In Dextrose/Water 1 100ml .bag @ 0.375 MCG/KG/MIN 4 .41 mls/hr IV .[id number] [facility]EE Rx#:[id number] Oral 300 820 200 Output: Urine 650 1300 200 Other: Voiding Method Bedpan Toilet Toilet Bedpan # Voids 1 # Bowel Movements 1 ABP, PAP, CO, CI - Last Documented Arterial Blood Pressure 8/4 Pulmonary Artery Pressure 29/24 Cardiac Output 3.6 Cardiac Index 3.6 - Exam PHYSICAL EXAMINATION: Patient is lying in the bed comfortably, no acute distress, awake alert and oriented.. HEENT: Normocephalic. Neck is supple. Pupils reactive. Nostrils clear. Oral cavity is moist. Neck reveals no JVD, carotid bruits, or thyromegaly. CHEST EXAMINATION: Trachea is central. Symmetrical expansion. minimal Bibasilar crackles and No wheezing.. CARDIAC: Normal S1, S2 with no gallops. No murmurs ABDOMEN: Soft. Bowel sounds normal. No organomegaly. No abdominal bruits. Extremities: reveal no edema. No clubbing or cyanosis Neurologically awake, alert, oriented x3 with well-coordinated movements. No focal deficits noted Skin: No rash or skin lesions. Psychiatric: Cooperative. Nonsuicidal Musculoskeletal: No joint swelling or deformity. Normal range of motion. - Labs CBC & Chem 7: 06/02/21 04:04 06/02/21 04:04 Labs: Abnormal Lab Results - Last 24 Hours (Table) 06/02/21 06/02/21 Range/Units 04:04 04:04 RBC 3.53 L (3.80-5.40) m/uL Hgb 11.3 L (11.4-16.0) gm/dL Hct 32.2 L (34.0-46.0) % Lymphocytes # 0.8 L (1.0-4.8) k/uL Sodium 129 L (137-145) mmol/L Creatinine 0.47 L (0.52-1.04) mg/dL Glucose 111 H (74-99) mg/dL Calcium 8.1 L (8.4-10.2) mg/dL Assessment and Plan Assessment: Acute ST elevated CO status post cardiac catheterization stent placement to the LAD. Acute hypoxic respiratory failure. Patient was on BiPAP post procedure..Currently on NC at 12L/min Hypotension due to Cardiogenic shock. Off pressors now. Acute CHF with ejection fraction less than 20% with global hypokinesis. Hypovolemic hyponatremia due to diuresis. Hypokalemia Elevated liver enzymes DVT prophylaxis. Plan: Patient is being monitored in MICU. Was initially on BiPAP and transition to Ventimask--->NC. Patient is off pressor support now. Patient was on IV Lasix due to pulmonary vascular congestion and effusion.. Right heart catheterization showed low filling pressures. IV Lasix has been discontinued. Patient Is being continued on milrinone drip. Continue with aspirin, prasugrel and statins. LDL 122. Repeat CBC and CMP. Cardiology and pulmonary is on board. Continue to follow closely. Time with Patient: Greater than 30
[2021-06-03] MEDS: MIDODRINE 5 MG TAB PO SCH ×3 (06:48→16:21)
[2021-06-03] MEDS: ASPIRIN 81 MG PO SCH (08:45)
[2021-06-03] MEDS: FAMOTIDINE 20 MG TAB PO SCH ×2 (08:45→20:19)
[2021-06-03] MEDS: PRASUGREL 10 MG TAB PO SCH (08:45)
[2021-06-03] MEDS: HEPARIN SODIUM,PORCINE/PF 5,000 UNIT/0.5 ML SYRINGE SQ SCH ×2 (08:45→20:19)
[2021-06-03] MEDS ORDERED: DIGOXIN 250 MCG/ML 2 ML AMP IVP ONE ×2 (08:59→15:00)
[2021-06-03 09:03] LABS: Basophils # (A) 0.1 k/uL (0-0.2); Basophils % (A) 1 %; Eosinophils # (A) 0.2 k/uL (0-0.7); Eosinophils % (A) 2 %; HCT 35.5 % (34.0-46.0); HGB 11.8 gm/dL (11.4-16.0); Lymphocytes # (A) 0.9 k/uL (1.0-4.8); Lymphocytes % (A) 9 %; MCH 31.3 pg (25.0-35.0); MCHC 33.3 g/dL (31.0-37.0); Mean Platelet Volume 8.6; Monocytes # (A) 0.7 k/uL (0-1.0); Monocytes % (A) 8 %; Neutrophils # (A) 7.2 k/uL (1.3-7.7); Neutrophils % (A) 78 %; Platelet Count 218 k/uL (150-450); RBC 3.77 m/uL (3.80-5.40); RDW 12.5 % (11.5-15.5); WBC 9.3 k/uL (3.8-10.6)
--- NOTE | 2021-06-03 09:07 | XR ---
EXAMINATION TYPE: XR chest 1V portable DATE OF EXAM: 06/03/2021 COMPARISON: 06/02/2021 HISTORY: Dyspnea TECHNIQUE: Single frontal view of the chest is obtained. FINDINGS: Right [place]-Graham catheter has been removed and the right IJ sheath is in place. Left basilar pleural-parenchymal disease is redemonstrated with patchy airspace disease of the right lung base, similar to the prior exam. Cardiac silhouette is unchanged. IMPRESSION: Right [place]-Graham catheter has been removed and the right IJ sheath is in place. Left basilar pleural-parenchymal disease is redemonstrated with patchy airspace disease of the right lung base, similar to the prior exam.
--- NOTE | 2021-06-03 09:12 | P.PN ---
Subjective Progress Note Date: 06/03/21 Principal diagnosis: Shortness of breath, hypoxia On 05/29/2021 patient seen in follow-up in intensive care unit, she is awake and alert, she is on a nonrebreather mask, and she has been wearing BiPAP support intermittently, she remains on IV diuretics with Lasix 40 mg 3 times daily, she is -1.6 L net fluid balance, her chest x-ray today shows worsened pulmonary infiltrates. Her serum sodium is 128, potassium is 4.4, chloride is 97, BUN is 28 creatinine 0.68. White count is improved and is down to 14.7, hemoglobin is 13.2. Patient has significant chest pain. Patient has had some low blood pressures with systolic in the 70s and 80s, and diastolic in the 50s, she will be started on midodrine. Cardiology is following, does not recommend any initiation of inotropes unless the urine output significantly drops, patient has sinus tachycardia which is thought to be compensatory to cardiogenic shock. Cardiology recommends repeat arterial pressure around 55 or better as low as patient is asymptomatic. Patient continues on aspirin and Effient. Echocardiogram has been reviewed showing severe global hypokinesis and left ventricular systolic function of less than 20%. On 06/02/2021 patient seen in follow-up in the intensive care unit, yesterday she was taken back to the custodial laborer for insertion of Sawyer-Graham catheter for evaluation filling pressures, her filling pressures were low, and cardiac output and index were within normal limits with cardiac output of 3.67 L/m, and cardiac index of 2.96 L/m/m. PA pressure was 13/5, and pulmonary wedge pressure was 6. Patient is currently on 8 L per partial rebreather mask, she feels more comfortable with the mask, denies any chest pain, she stated she had some limited cough last night, no phlegm production, percent is 99-100%, she can probably wean down from the partial rebreather. She is afebrile, her blood pr essure is in the 80s over 50s, most recent blood pressure this morning is 91/64. PA pressure is 24/19, her CVP is 10. Her latest cardiac output is 3.6. Lasix is on hold, she does in sinus mechanism, tachycardic with a rate of 111-124, no fever or chills, patient has been voiding, she has produced 1.7 L. Urine output, however she is in positive fluid balance of 760 mL over the last 24 hours, no JVD, no lower extremity swelling, lung sounds reveal essentially clear breath sounds, today's chest x-ray has been reviewed showing developing bibasilar infiltrates correlate atelectasis and pneumonia. These labs have been reviewed, white blood cell, 3.8, hemoglobin is 11.3, serum sodium is 129, p otassium is 4.2, BUN is 10, creatinine 0.49, anion gap is 3, and CO2 is 27. Patient is tolerating oral intake, no nausea vomiting or diarrhea. She remains on subcu heparin 5000 units every 12 hours, she has been started on midodrine 5 mg 3 times a day for blood pressure support, she remains on milrinone infusion at 0.37 mics per kilo per minute, the Levophed has been off, and she is on 0.9 normal saline at rate of 80 ML per hour. Neurologically patient is intact, slightly fatigued, but no acute distress, breathing comfortably, follow no commands, moving all 4 extremities, distal pulses are palpable, skin is warm dry and intact. Today's evaluation on 06/03/2021 patient seen in follow-up in intensive care unit, she is resting comfortably in bed, she is currently on 2 L of oxygen with a pulse ox of 96%, she's been afebrile, hemodynamically she's been stable, her systolic blood pressures have been in the 80s and 90s, and diastolic in the 60s with a mean in the 69-76 range. Sawyer-Graham has been discontinued, however cardiac indices obtained when he was first put in were within normal limits. Patient remains on midodrine 10 mg 3 times daily, and Lasix has not been restarted yet, today's chest x-ray has been reviewed showing bibasilar infiltrates worsening in the left lower lobe. Clinically patient is breathing comfortably, still on the same amount of oxygen at 2 L, lung sounds reveal diminished breath sounds, no rhonchi or wheezing. No complaints of chest pain. Patient is not on any vasoactive drips, is currently off milrinone drip, no leave aside, she is on 0.9 normal saline at a rate of KVO rate. His labs have been reviewed, white blood cell count is 9.3, hemoglobin is 11.8, platelet count is 218, BMP is still pending right now. Patient is on antiplatelet therapy with aspirin and Effient digitoxin is being initiated by cardiology. Objective - Vital Signs Vital signs: Vital Signs Temp 98 F 06/03/21 08:00 Pulse 125 H 06/03/21 09:00 Resp 21 06/03/21 09:00 BP 93/66 06/03/21 09:00 Pulse Ox 97 06/03/21 07:00 Intake & Output 06/02/21 06/03/21 06/03/21 18:59 06:59 18:59 Intake Total 1242.01 200 240 Output Total 1300 900 600 Balance -57.99 -700 -360 Weight 43 kg Intake: IV 400 Sodium Chloride 0.9% 1, 400 000 ml @ 80 mls/hr IV . [id number] ROSALEE Rx#:[id number] Intake, IV Titration 22.01 Amount Milrinone-D5w Pmx 20 mg 22.01 In Dextrose/Water 1 100ml .bag @ 0.375 MCG/KG/MIN 4 .41 mls/hr IV .[id number] ROSALEE Rx#:[id number] Oral 820 200 240 Output: Urine 1300 900 600 Other: Voiding Method Toilet Toilet Bedpan # Voids 1 # Bowel Movements 1 ABP, PAP, CO, CI - Last Documented Arterial Blood Pressure 8/4 Pulmonary Artery Pressure 29/24 Cardiac Output 3.6 Cardiac Index 3.6 - Exam GENERAL EXAM: Alert, very pleasant, 60-year-old white female, on 2 L of oxygen comfortable in no apparent distress. HEAD: Normocephalic/atraumatic. EYES: Normal reaction of pupils, equal size. Conjunctiva pink, sclera white. NOSE: Clear with pink turbinates. Right IJ Sawyer-Graham catheter has been dis continued, and patient has a right neck Cordis in place which will be discontinued today THROAT: No erythema or exudates. NECK: No masses, no JVD, no thyroid enlargement, no adenopathy. CHEST: No chest wall deformity. Symmetrical expansion. LUNGS: Equal air entry with bibasilar crackles CVS: Regular rate and rhythm, normal S1 and S2, no gallops, no murmurs, no rubs ABDOMEN: Soft, nontender. No hepatosplenomegaly, normal bowel sounds, no guarding or rigidity. EXTREMITIES: No clubbing, no edema, no cyanosis, 2+ pulses and upper and lower extremities. MUSCULOSKELETAL: Muscle strength and tone normal. SPINE: No scoliosis or deformity SKIN: No rashes CENTRAL NERVOUS SYSTEM: Alert and oriented -3. No focal deficits, tone is normal in all 4 extremities. PSYCHIATRIC: Alert and oriented -3. Appropriate affect. Intact judgment and insight. - Labs CBC & Chem 7: 06/03/21 08:40 06/02/21 04:04 Labs: Abnormal Lab Results - Last 24 Hours (Table) 06/03/21 Range/Units 08:40 RBC 3.77 L (3.80-5.40) m/uL Lymphocytes # 0.9 L (1.0-4.8) k/uL Assessment and Plan Plan: Assessment: #1. Acute ST elevated myocardial infarction involving anterolateral wall, status post proximal LAD PCI, and this was thought to be embolic in nature #2. Cardiogenic shock, status post Impella placement however this had to be removed related to occlusion and no blood flow to right lower extremity #3. Acute chronic CHF, currently echocardiogram shows EF of less than 20% and severe global hypokinesia #4. Lifetime nonsmoker #5. Acute elevation of liver enzymes possibly related to CHF #6. Hyponatremia, likely hypervolemic due to acute systolic CHF Plan: No acute events overnight Today's chest x-ray has been reviewed still showing bibasilar infiltrates, with possible worsening in the left lower base Report from radiology is pending Clinically patient has been stable, she is breathing comfortably, she is just on 2 L of oxygen, not requiring BiPAP support No complaints of chest pain Continue current medical treatment Continue midodrine Digoxin is being initiated by cardiology Still awaiting results of the chemistries from this morning Patient may have to be initiated on low-dose diuretics continue monitoring in the intensive care unit I performed a history & physical examination of the patient and discussed their management with my nurse practitioner, Amy Vines. I reviewed the nurse practitioner's note and agree with the documented findings and plan of care. Lung sounds are positive for diffuse wheezes throughout the lung dias. The findings and the impression was discussed with the patient. I attest to the documentation by the nurse practitioner. Time with Patient: Less than 30
[2021-06-03 09:21] LABS: Potassium 4.7 mmol/L (3.5-5.1)
[2021-06-03 09:22] LABS: ALT 43 U/L (4-34); AST 78 U/L (14-36); African American GFR (CKD) >90 (>60 ml/min/1.73 sqM); Albumin 2.4 g/dL (3.5-5.0); Alkaline Phosphatase 415 U/L (38-126); Anion Gap 2 mmol/L; Blood Urea Nitrogen 7 mg/dL (7-17); Calcium 8.8 mg/dL (8.4-10.2); Carbon Dioxide 28 mmol/L (22-30); Chloride 102 mmol/L (98-107); Glucose 112 mg/dL (74-99); Non-African American GFR(CKD) >90 (>60 ml/min/1.73 sqM); Sodium 132 mmol/L (137-145); Total Bilirubin 0.3 mg/dL (0.2-1.3); Total Protein 5.1 g/dL (6.3-8.2)
[2021-06-03] MEDS: POTASSIUM CHLORIDE ER 20 MEQ TAB.ER PO SCH (09:24)
--- NOTE | 2021-06-03 12:12 | P.PN ---
Subjective Progress Note Date: 06/03/21 This is a 60-year-old female who was admitted to the hospital to anterolateral WI and cardiac shock. Patient had stent placement of the LAD. Patient's LV function is severely impaired, according to the echocardiogram. Patient is also dealing with hyponatremia. Patient is on nonrebreather. Getting IV Lasix. Chest x-ray showed ongoing evidence of pulmonary edema and small left-sided pleural effusion. Patient is -2.3 L of fluid balance over the last 24 hours. She is currently on Lasix . Patient is not on beta trevin because of hypotension. She was also put on metered in 5 mg by mouth 3 times daily. Patient prognosis still guarded. However, patient denies any chest pain or shortness of breath and seemed to be optimistic 05/31/2021: This patient seemed to be doing better today. Denies any chest pain. Looks frail and weak. No respiratory distress. Chest x-ray shows improvement. Her blood pressure is more stable on milrinone. Lungs are relatively clear. Heart is regular. Dr. Smart is going to do a right heart catheterization to see if she needs LVAD. We'll repeat echocardiogram tomorrow. Increase activity slowly. 06/02/2021: This patient had Wallback-Graham catheter insertion, yesterday. She was found to have low filling pressures and a reasonable cardiac output. Her d iuretics have been discontinued and patient has been given IV fluids. Her CVP about 10. Patient doesn't have any JVD or peripheral edema. Lungs appeared to be clear. Chest x-ray does show some atelectatic changes at the bases. Patient however still tachycardic. Blood pressure is running in the 90 systolic range. At this point. Wallback-Graham is not working well and that can be removed. We may try adding digoxin. Because of the sinus tachycardia and CHF. We'll also repeat the echocardiogram to assess LV function. We'll increase activity as tolerated. Prognosis is guarded 06/03/2021: This patient seemed to be relatively stable. Still tachycardic. Denies any chest pain. Vital signs show borderline blood pressure of 90-95. Chest x-ray shows some infiltrate but patient is feeling fine without any chest pain or shortness of breath. Wallback-Graham catheters removed. We'll going to rem ove his central line. I'm going start her digoxin to CV can improve her heart rate and blood pressure. Patient could be transferred to telemetry unit. Echocardiogram showed severe LV dysfunction with ejection fraction 20-25% with no significant improvement with severe anteroapical hypokinesia Objective - Vital Signs Vital signs: Vital Signs Temp 98 F 06/03/21 08:00 Pulse 112 H 06/03/21 10:00 Resp 21 06/03/21 10:00 BP 94/62 06/03/21 10:00 Pulse Ox 97 06/03/21 10:00 Intake & Output 06/02/21 06/03/21 06/03/21 18:59 06:59 18:59 Intake Total 1242.01 200 240 Output Total 1300 900 600 Balance -57.99 -700 -360 Weight 43 kg Intake: IV 400 Sodium Chloride 0.9% 1, 400 000 ml @ 80 mls/hr IV . [id number] ROSALEE Rx#:[id number] Intake, IV Titration 22.01 Amount Milrinone-D5w Pmx 20 mg 22.01 In Dextrose/Water 1 100ml .bag @ 0.375 MCG/KG/MIN 4 .41 mls/hr IV .[id number] ROSALEE Rx#:[id number] Oral 820 200 240 Output: Urine 1300 900 600 Other: Voiding Method Toilet Toilet Toilet Bedpan # Voids 1 1 # Bowel Movements 1 ABP, PAP, CO, CI - Last Documented Arterial Blood Pressure 8/4 Pulmonary Artery Pressure 29/24 Cardiac Output 3.6 Cardiac Index 3.6 - Exam GENERAL EXAM: Patient is alert and oriented and appears to be pale and cachectic HEENT: Normocephalic. Normal reaction of pupils, equal size, normal range of extraocular motion. No erythema or exudates in the throat. NECK: No masses, no nuchal rigidity. CHEST: No chest wall deformity. LUNGS: Equal air entry with no crackles or wheeze. HEART: 1 and S2 heard. Irregular ABDOMEN: No hepatosplenomegaly, normal bowel sounds, no guarding or rigidity. SKIN: No rashes CENTRAL NERVOUS SYSTEM: No focal deficits. EXTREMITIES: No cyanosis, clubbing or edema. - Labs CBC & Chem 7: 06/03/21 08:40 06/03/21 08:40 Labs: Abnormal Lab Results - Last 24 Hours (Table) 06/03/21 06/03/21 Range/Units 08:40 08:40 RBC 3.77 L (3.80-5.40) m/uL Lymphocytes # 0.9 L (1.0-4.8) k/uL Sodium 132 L (137-145) mmol/L Creatinine 0.46 L (0.52-1.04) mg/dL Glucose 112 H (74-99) mg/dL AST 78 H (14-36) U/L ALT 43 H (4-34) U/L Alkaline Phosphatase 415 H (38-126) U/L Total Protein 5.1 L (6.3-8.2) g/dL Albumin 2.4 L (3.5-5.0) g/dL Assessment and Plan (1) Cardiac shock syndrome Current Visit: Yes Status: Acute Code(s): R57.0 - CARDIOGENIC SHOCK SNOMED Code(s): 26161968 (2) ST elevation myocardial infarction (STEMI) Current Visit: Yes Status: Acute Code(s): I21.3 - ST ELEVATION (STEMI) MYOCARDIAL INFARCTION OF [facility] SITE SNOMED Code(s): 05995449 (3) Cardiomyopathy Current Visit: Yes Status: Acute Code(s): I42.9 - CARDIOMYOPATHY, UNSPECIFIED SNOMED Code(s): 91601825 (4) Acute systolic CHF (congestive heart failure) Current Visit: Yes Status: Acute Code(s): I50.21 - ACUTE SYSTOLIC (CONGESTIVE) HEART FAILURE SNOMED Code(s): 190013161 Plan: Patient has severe ischemic cardiomyopathy. Relatively stable on current medical therapy. He adding digoxin. Patient could be transferred to telemetry unit. Prognosis is guarded. Patient will require LifeVest before discharge.
[2021-06-03] MEDS ORDERED: MIDODRINE 5 MG TAB PO STA (20:08)
[2021-06-03] MEDS ORDERED: SODIUM CHLORIDE 0.9% 200 ML IV ONE (20:42)
[2021-06-04] MEDS: MIDODRINE 5 MG TAB PO SCH ×3 (06:30→17:20)
[2021-06-04] MEDS: POTASSIUM CHLORIDE ER 20 MEQ TAB.ER PO SCH ×2 (08:24→14:57)
[2021-06-04] MEDS: FAMOTIDINE 20 MG TAB PO SCH ×2 (08:24→20:07)
[2021-06-04] MEDS: PRASUGREL 10 MG TAB PO SCH (08:25)
[2021-06-04] MEDS: DIGOXIN 250 MCG/ML 2 ML AMP IVP SCH (08:25)
[2021-06-04] MEDS: ASPIRIN 81 MG PO SCH (08:25)
[2021-06-04] MEDS: HEPARIN SODIUM,PORCINE/PF 5,000 UNIT/0.5 ML SYRINGE SQ SCH ×2 (08:25→20:07)
--- NOTE | 2021-06-04 11:03 | P.PN ---
Subjective Progress Note Date: 06/04/21 On 05/29/2021 patient seen in follow-up in intensive care unit, she is awake and alert, she is on a nonrebreather mask, and she has been wearing BiPAP support intermittently, she remains on IV diuretics with Lasix 40 mg 3 times daily, she is -1.6 L net fluid balance, her chest x-ray today shows worsened pulmonary infiltrates. Her serum sodium is 128, potassium is 4.4, chloride is 97, BUN is 28 creatinine 0.68. White count is improved and is down to 14.7, hemoglobin is 13.2. Patient has significant chest pain. Patient has had some low blood pressures with systolic in the 70s and 80s, and diastolic in the 50s, she will be started on midodrine. Cardiology is following, does not recommend any initiation of inotropes unless the urine output significantly drops, patient has sinus tachycardia which is thought to be compensatory to cardiogenic shock. Cardiology recommends repeat arterial pressure around 55 or better as low as patient is asymptomatic. Patient continues on aspirin and Effient. Echocardiogram has been reviewed showing severe global hypokinesis and left ventricular systolic function of less than 20%. On 06/02/2021 patient seen in follow-up in the intensive care unit, yesterday she was taken back to the slab grinder for insertion of [place]-Graham catheter for evaluation filling pressures, her filling pressures were low, and cardiac output and index were within normal limits with cardiac output of 3.67 L/m, and cardiac index of 2.96 L/m/m. PA pressure was 13/5, and pulmonary wedge pressure was 6. Patient is currently on 8 L per partial rebreather mask, she feels more comf ortable with the mask, denies any chest pain, she stated she had some limited cough last night, no phlegm production, percent is 99-100%, she can probably wean down from the partial rebreather. She is afebrile, her blood pressure is in the 80s over 50s, most recent blood pressure this morning is 91/64. PA pressure is 24/19, her CVP is 10. Her latest cardiac output is 3.6. Lasix is on hold, she does in sinus mechanism, tachycardic with a rate of 111-124, no fever or chills, patient has been voiding, she has produced 1.7 L. Urine output, however she is in positive fluid balance of 760 mL over the last 24 hours, no JVD, no lower extremity swelling, lung sounds reveal essentially clear breath sounds, today's chest x-ray has been reviewed showing developing bibasilar infiltrates correlate atelectasis and pneumonia. These labs have been reviewed, white blood cell, 3.8, hemoglobin is 11.3, serum sodium is 129, potassium is 4.2, BUN is 10, creatinine 0.49, anion gap is 3, and CO2 is 27. Patient is tolerating oral intake, no nausea vomiting or diarrhea. She remains on subcu heparin 5000 units every 12 hours, she has been started on midodrine 5 mg 3 times a day for blood pressure support, she remains on milrinone infusion at 0.37 mics per kilo per minute, the Levophed has been off, and she is on 0.9 normal saline at rate of 80 ML per hour. Neurologically patient is intact, slightly fatigued, but no acute distress, breathing comfortably, follow no commands, moving all 4 extremities, distal pulses are palpable, skin is warm dry and intact. Today's evaluation on 06/03/2021 patient seen in follow-up in intensive care unit, she is resting comfortably in bed, she is currently on 2 L of oxygen with a pulse ox of 96%, she's been afebrile, hemodynamically she's been stable, her systolic blood pressures have been in the 80s and 90s, and diastolic in the 60s with a mean in the 69-76 range. [place]-Graham has been discontinued, however cardiac indices obtained when he was first put in were within normal limits. Patient remains on midodrine 10 mg 3 times daily, and Lasix has not been restarted yet, today's chest x-ray has been reviewed showing bibasilar infiltrates worsening in the left lower lobe. Clinically patient is breathing comfortably, still on the same amount of oxygen at 2 L, lung sounds reveal diminished breath sounds, no rhonchi or wheezing. No complaints of chest pain. Patient is not on any vasoactive drips, is currently off milrinone drip, no leave aside, she is on 0.9 normal saline at a rate of KVO rate. His labs have been reviewed, white blood cell count is 9.3, hemoglobin is 11.8, platelet count is 218, BMP is still pending right now. Patient is on antiplatelet therapy with aspirin and Effient digitoxin is being initiated by cardiology. 06/04/2021, the patient is on a medical floor. The patient is is doing well and the patient has Oxygen and she is on room air oxygen for now. She has been also taken off milrinone. She is on no diuretics for now. No significant respiratory distress patient sitting up on a chair. No cardiac arrhythmias. Cardiology is on the case regarding herShe is less tachycardic compared to yesterday and the patient's heart rate is currently at 105. Most recent BP is 107/93. A Combination of Aspirin and Effient. She Was Given Digoxin 0.125 Mg a Daily Basis and the Patient Is Also on Midodrine for Blood Pressure Control. Objective - Vital Signs Vital signs: Vital Signs Temp 98.2 F 06/04/21 08:00 Pulse 105 H 06/04/21 08:00 Resp 16 06/04/21 08:00 BP 99/68 06/04/21 08:00 Pulse Ox 96 06/04/21 08:15 Intake & Output 06/03/21 06/04/21 06/04/21 18:59 06:59 18:59 Intake Total 480 200 Output Total 600 Balance -120 200 Weight 39.9 kg Intake: Intake, IV Titration 200 Amount Sodium Chloride 0.9% 200 200 ml @ 999 mls/hr IV .Q13M ONE Rx#:[id number] Oral 480 Output: Urine 600 Other: Voiding Method Toilet Toilet # Voids 1 1 # Bowel Movements 1 ABP, PAP, CO, CI - Last Documented Arterial Blood Pressure 8/4 Pulmonary Artery Pressure 29/24 Cardiac Output 3.6 Cardiac Index 3.6 - Exam GENERAL EXAM: Alert, very pleasant, 60-year-old female, on room air O2 HEAD: Normocephalic/atraumatic. EYES: Normal reaction of pupils, equal size. Conjunctiva pink, sclera white. NOSE: Clear with pink turbinates. THROAT: No erythema or exudates. NECK: No masses, no JVD, no thyroid enlargement, no adenopathy. CHEST: No chest wall deformity. Symmetrical expansion. LUNGS: Equal air entry with bibasilar crackles CVS: Regular rate and rhythm, normal S1 and S2, no gallops, no murmurs, no rubs ABDOMEN: Soft, nontender. No hepatosplenomegaly, normal bowel sounds, no guardi ng or rigidity. EXTREMITIES: No clubbing, no edema, no cyanosis, 1+ pulses and upper and lower extremities. MUSCULOSKELETAL: Muscle strength and tone normal. SPINE: No scoliosis or deformity SKIN: No rashes CENTRAL NERVOUS SYSTEM: Alert and oriented -3. No focal deficits, tone is normal in all 4 extremities. PSYCHIATRIC: Alert and oriented -3. Appropriate affect. Intact judgment and insight. - Labs CBC & Chem 7: 06/03/21 08:40 06/03/21 08:40 Assessment and Plan Plan: [address] elevated myocardial infarction involving anterolateral wall, status post proximal LAD PCI and stenting . The patient also had an Impella placement, right femoral angiogram, right femoral arteriotomy and closure with perclose. Cardiology is considering taking her back to the Exp[facility] Assistant later today for further evaluation. Meanwhile, the patient is feeling of any chest pain and the patient is responding to diuresis and she remains on milrinone. The patient remains free of any chest pain. The patient was optimized in regards to her CHF. She is currently on a combination of aspirin and Effient. 2 Cardiogenic shock, status post Impella placement however this had to be removed related to occlusion and no blood flow to right lower extremity. Subsequently, the patient was supported with milrinone which ultimately was discontinued. The patient was diuresed adequately while being on milrinone and patient is currently off diuretics. The patient is currently on digoxin. She has advanced cardiomyopathy with an ejection fraction of 20%. 3 Acute chronic CHF, currently echocardiogram shows EF of less than 20% and severe global hypokinesia noted RV is normal. No significant valvular abnormalities. No evidence of any pericardial effusion. Today's chest x-ray showing improving bibasilar and left midlung reticulonodular edema. 4 Acute hypoxic respiratory failure secondary to pulmonary edema, the patient was weaned off the oxygen patient is currently on room air oxygen 5 Acute elevation of liver enzymes possibly related to CHF 6 Hyponatremia, likely hypervolemic due to acute systolic CHF, improved and the patient's sodium level at 130 7 hypotension, currently on midodrine Plan: Continue same treatment for now Obtain labs today, results are still pending for now Wean down the FiO2 slowly to maintain a saturation above 90%, currently on room air oxygen Continue the same care and pulmonary critical care services will sign off We will continue to follow and make further recommendations based on her clinical status
[2021-06-04 13:12] LABS: Basophils # (A) 0.1 k/uL (0-0.2); Basophils % (A) 1 %; Eosinophils # (A) 0.2 k/uL (0-0.7); Eosinophils % (A) 2 %; HCT 37.9 % (34.0-46.0); HGB 12.2 gm/dL (11.4-16.0); Lymphocytes % (A) 12 %; MCH 31.1 pg (25.0-35.0); MCHC 32.3 g/dL (31.0-37.0); MCV 96.2 fL (80.0-100.0); Mean Platelet Volume 8.8; Monocytes # (A) 0.6 k/uL (0-1.0); Monocytes % (A) 7 %; Neutrophils # (A) 6.1 k/uL (1.3-7.7); Neutrophils % (A) 75 %; Platelet Count 241 k/uL (150-450); RBC 3.94 m/uL (3.80-5.40); RDW 12.5 % (11.5-15.5); WBC 8.2 k/uL (3.8-10.6)
[2021-06-04 13:42] LABS: ALT 52 U/L (4-34); AST 73 U/L (14-36); African American GFR (CKD) >90 (>60 ml/min/1.73 sqM); Albumin 2.6 g/dL (3.5-5.0); Alkaline Phosphatase 482 U/L (38-126); Anion Gap 5 mmol/L; Blood Urea Nitrogen 7 mg/dL (7-17); Calcium 8.9 mg/dL (8.4-10.2); Carbon Dioxide 26 mmol/L (22-30); Chloride 102 mmol/L (98-107); Glucose 109 mg/dL (74-99); Non-African American GFR(CKD) >90 (>60 ml/min/1.73 sqM); Potassium 4.6 mmol/L (3.5-5.1); Sodium 133 mmol/L (137-145); Total Bilirubin 0.3 mg/dL (0.2-1.3); Total Protein 5.4 g/dL (6.3-8.2)
--- NOTE | 2021-06-04 13:55 | P.PN ---
Subjective Progress Note Date: 06/04/21 HISTORY OF PRESENT ILLNESS This is a 60-year-old female who was admitted to the hospital to anterolateral PA and cardiac shock. Patient had stent placement of the LAD. Patient's LV function is severely impaired, according to the echocardiogram. Patient is also dealing with hyponatremia. Patient is on nonrebreather. Getting IV Lasix. Chest x-ray showed ongoing evidence of pulmonary edema and small left-sided pleural effusion. Patient is -2.3 L of fluid balance over the last 24 hours. She is currently on Lasix . Patient is not on beta trevin because of hypotension. She was also put on metered in 5 mg by mouth 3 times daily. Patient prognosis still guarded. However, patient denies any chest pain or shortness of breath and seemed to be optimistic 05/31/2021: This patient seemed to be doing better today. Denies any chest pain. Looks frail and weak. No respiratory distress. Chest x-ray shows improvement. Her blood pressure is more stable on milrinone. Lungs are relatively clear. Heart is regular. Dr. Smart is going to do a right heart catheterization to see if she needs LVAD. We'll repeat echocardiogram tomorrow. Increase activity slowly. 06/02/2021: This patient had [place] catheter insertion, yesterday. She was found to have low filling pressures and a reasonable cardiac output. Her diuretics have been discontinued and patient has been given IV fluids. Her CVP about 10. Patient doesn't have any JVD or peripheral edema. Lungs appeared to be clear. Chest x-ray does show some atelectatic changes at the bases. Patient however still tachycardic. Blood pressure is running in the 90 systolic range. At this point. [place] is not working well and that can be removed. We may try adding digoxin. Because of the sinus tachycardia and CHF. We'll also repeat the echocardiogram to assess LV function. We'll increase activity as tolerated. Prognosis is guarded 06/03/2021: This patient seemed to be relatively stable. Still tachycardic. Denies any chest pain. Vital signs show borderline blood pressure of 90-95. Chest x-ray shows some infiltrate but patient is feeling fine without any chest pain or shortness of breath. [place] catheters removed. We'll going to remove his central line. I'm going start her digoxin to CV can improve her heart rate and blood pressure. Patient could be transferred to telemetry unit. Echocardiogram showed severe LV dysfunction with ejection fraction 20-25% with no significant improvement with severe anteroapical hypokinesia 06/04/2021: Patient is seen today on the cardiac stepdown unit. She continues to have shortness of breath with exertion. She denies having any chest pain or shortness of breath. Patient continues to have have mild tachycardia and hypotension. Patient has been started on IV digoxin. CBC is unremarkable. Sodium 133, creatinine 0.49. Liver enzymes are elevated with AST 73, ALT 52 and alkaline phosphatase 482. Repeat chest x-ray report is pending PHYSICAL EXAMINATION Gen: This is a thin cachectic appearing 60-year-old female. She is resting in a recliner and appears to be comfortable and in no acute distress. VS: Afebrile, heart rate 105, blood pressure 99/60, pulse ox 96% on room air. aircraft worker sinus tachycardia. HEENT: Head is atraumatic, normocephalic. Pupils equal, round. Sclerae is anicteric. NECK: Supple. No JVD. No lymphadenopathy. No thyromegaly. LUNGS: Crackles bilateral bases. No wheezes or rhonchi. No intercostal retractions. HEART: Irregular rate and rhythm. No murmur. ABDOMEN: Soft. Bowel sounds are present. No masses. No tenderness. EXTREMITIES: No pedal edema. No calf tenderness. NEUROLOGICAL: Patient is awake, alert and oriented x3. Cranial nerves 2 through 12 are grossly intact. ASSESSMENT Acute systolic heart failure Severe Ischemic cardiomyopathy Acute ST elevated myocardial infarction, anterior lateral Cardiogenic shock PLAN Plan to order LifeVest on Sunday with case management associate Further recommendations to follow based upon clinical course Thank you kindly for this consultation. Nurse practitioner note has been reviewed, I agree with documented findings and plan of care. Patient was seen and examined. Objective - Vital Signs Vital signs: Vital Signs Temp 98.2 F 06/04/21 08:00 Pulse 105 H 06/04/21 08:00 Resp 16 06/04/21 08:00 BP 99/68 06/04/21 08:00 Pulse Ox 96 06/04/21 08:15 Intake & Output 06/03/21 06/04/21 06/04/21 18:59 06:59 18:59 Intake Total 480 200 Output Total 600 Balance -120 200 Weight 39.9 kg Intake: Intake, IV Titration 200 Amount Sodium Chloride 0.9% 200 200 ml @ 999 mls/hr IV .Q13M ONE Rx#:[id number] Oral 480 Output: Urine 600 Other: Voiding Method Toilet Toilet # Voids 1 1 # Bowel Movements 1 ABP, PAP, CO, CI - Last Documented Arterial Blood Pressure 8/4 Pulmonary Artery Pressure 29/24 Cardiac Output 3.6 Cardiac Index 3.6 - Labs CBC & Chem 7: 06/04/21 12:42 06/04/21 12:42
--- NOTE | 2021-06-04 15:26 | XR ---
EXAMINATION TYPE: XR chest 1V portable DATE OF EXAM: 06/04/2021 COMPARISON: 06/03/2021 INDICATION: Pulmonary edema TECHNIQUE: Single frontal view of the chest is obtained. FINDINGS: The heart size is normal. The pulmonary vasculature is normal. Small bibasilar infiltrates are present. A small left pleural effusion is present. Findings are stabl e from comparison. IMPRESSION: 1. Small bilateral infiltrates with a small left pleural effusion, stable.
--- NOTE | 2021-06-05 00:08 | P.PN ---
Subjective Progress Note Date: 06/03/21 Principal diagnosis: Acute ST elevated [place] Patient is a 60-year-old female without significant past medical history presents to ER with complaints of chest pain. Patient states that last night she ate chicken Rober for dinner and since then she has been having nauseous and diaphoretic. Patient initially thought it flulike symptoms and food poisoning. Patient is still having heaviness in the chest mainly in the mid retrosternal and heavy pressure which made her come to ER today morning.. He denies any radiation of the pain. Denies any associated shortness of breath. No fever no chills. No cough or sputum production. Denies any recent illnesses. Patient had an EKG in the ER showed ST elevation in the anterior leads and STEMI team was activated. Chest x-ray showed there is some interstitial changes within the lungs. Correlate for pneumonia. Follow-up suggested. Laboratory data showed WBC 13.5 hemoglobin 14.1 platelets 322 lymphocytes 0.7 Sodium 137 potassium 4.3 chloride 105 bicarb is 24 BUN 19 and creatinine 0.56 AST 261 ALT 248 and alk phos 230 troponin 12.3 and coronavirus PCR not detected. 05/28/2021 Patient is in the MICU. Lying in the bed. Awake alert oriented x3. Currently on Ventimask. Patient also shortness of breath and nausea. Currently off pressor support. 2D echocardiogram showed there is severe global hypokinesis of LV. Overall left ventricular systolic function is severely impaired with ejection fraction less than 20%. Chest x-ray showed mild interval worsening in the acute cardiopulmonary disease. Findings are nonspecific and could reflect an acute inflammatory process or pulmonary edema. Short-term follow-up and clinical correlation is recommended. Patient was started on Lasix IV 40 mg every 8 hourly as blood pressure tolerates. Blood pressure is on the lower side. No complaints of dizziness or lightheadedness. Denies any diarrhea. Patient is able to tolerate oral diet slowly. WBC 24.7 hemoglobin 14.1 platelets 305 BUN 26 and creatinine 0.89 AST 695 ALT 86 alk phos 156 and total cholesterol is 206 Cardiology and pulmonary is on board. 05/29/2021 Patient is currently lying in the bed. Saturating well via nasal cannula at 12 L. Patient is diuresing well with IV Lasix. Patient states that her breathing is better today. Chest x-ray showed moderate interval worsening in the bilateral lung infiltrates. Possible developing pleural effusions. Patient was started midodrine due to hypotension. Laboratory data showed WBC trending down to 14.7 hemoglobin 13.1 platelets 217 Sodium 128 potassium 4.4 thyroid 97, BUN 28 and creatinine 0.68, Calcium 8.2 05/30/2021 Patient is in MICU. Currently being continued on IV Lasix and midodrine. Also on milrinone drip. Blood pressure is at the borderline. Diuresing well. However sodium level dropped to 126 today. No complaints of chest pain. Shortness of breath is improving. Patient is able to tolerate 25% of the meal. Complains of nausea. No episodes of vomiting. No abdominal pain or diarrhea. No headache or dizziness or lightheadedness. No dysuria. Laboratory showed WBC trending down to 10.7 hemoglobin 12.4 and platelets 218 Sodium 126, potassium 3.3, chloride 92, BUN 19 and creatinine 0.6 Patient was given 20 mEq of potassium today. 05/31/2021 Patient is in the MICU. Currently sitting in the chair. Awake alert and oriented times instructions better today. Currently requiring oxygen at 2 L via nasal cannula. Patient is able to walk few steps. Patient is being continued on milrinone drip and also on IV Lasix every 8 hourly. Laboratory showed sodium 130 potassium 3.6 bicarb 32 and creatinine level 0.62, WBC 9.9 and hemoglobin 12.6 Chest x-ray showed improved aeration in the mid left lung and bibasilar edema. Pulmonary and cardiology is on board. Discussed with the patient and her at bedside in detail. 06/01/2021 Patient is in the MICU. Awake alert and oriented x3. Blood pressure is on the lower side. Patient is being continued on milrinone drip and also IV Lasix. Currently requiring oxygen at 4 L via nasal cannula. Patient still having sinus tachycardia. Tolerating oral diet. Cardiology is planning for right heart catheterization today. Patient has been afebrile. No nausea vomiting or abdominal pain or diarrhea. No headache or dizziness. Lab data showed WBC 9.9 hemoglobin 12.6 platelets 241 Sodium 130 potassium 3.6 chloride 93 bicarb is 32 BUN 59 creatinine 0.62 06/02/2021 Patient is status post left heart catheterization showed low left and right- sided filling pressures. Normal cardiac output. Patient is in MICU. Currently Lasix has been discontinued and continued milrinone drip. Systolic blood pressures in the upper 90s. Denies any complaints of dizziness or lightheadedness. Patient has been afebrile. Sitting in the chair comfortably. No cough or sputum production. Chest x-ray today showed developing bibasilar infiltrates. Correlate for atelectasis or pneumonia. Atypical edema is considered less likely. Limited view echocardiogram was done today showed overall left ventricular systolic function severely impaired with ejection fraction 20 to 25%. Laboratory data showed WBC 8.8 hemoglobin 11.3 and platelets 213 Sodium 123 potassium 4.2 chloride 99 BUN 10 and creatinine 0.47 and calcium 8.1 06/03/2021 Patient is currently sitting in the chair comfortably. Awake alert and oriented x3. Requiring oxygen at 2 L via nasal cannula. Blood pressure has been stable with SBP in lower 90s. Patient is being continued on midodrine and cardiology is planning to add digoxin. Chest x-ray showed bibasilar infiltrates worsening in the left lower lobe. Patient is not on any pressor support. Laboratory data showed WBC 9.3 hemoglobin 11.8 and platelets 218 Sodium 132 potassium 4.7 chloride 102 BUN 7 and creatinine 0.46 and liver enzymes are trending down. Cardiology and pulmonary is on board. Patient is being transferred to select care unit today. Current medications reviewed. Objective - Vital Signs Vital signs: Vital Signs Temp 98.1 F 06/03/21 20:00 Pulse 125 H 06/03/21 20:00 Resp 16 06/03/21 20:00 BP 89/61 06/03/21 20:00 Pulse Ox 99 06/03/21 20:00 Intake & Output 06/03/21 06/03/21 06/04/21 06:59 18:59 06:59 Intake Total 200 480 200 Output Total 900 600 Balance -700 -120 200 Weight 43 kg Intake: Intake, IV Titration 200 Amount Sodium Chloride 0.9% 200 200 ml @ 999 mls/hr IV .Q13M ONE Rx#:[id number] Oral 200 480 Output: Urine 900 600 Other: Voiding Method Toilet Toilet Toilet Bedpan # Voids 1 2 # Bowel Movements 1 ABP, PAP, CO, CI - Last Documented Arterial Blood Pressure 8/4 Pulmonary Artery Pressure 29/24 Cardiac Output 3.6 Cardiac Index 3.6 - Exam PHYSICAL EXAMINATION: Patient is lying in the bed comfortably, no acute distress, awake alert and oriented.. HEENT: Normocephalic. Neck is supple. Pupils reactive. Nostrils clear. Oral cavity is moist. Neck reveals no JVD, carotid bruits, or thyromegaly. CHEST EXAMINATION: Trachea is central. Symmetrical expansion. minimal Bibasilar crackles and No wheezing.. CARDIAC: Normal S1, S2 with no gallops. No murmurs ABDOMEN: Soft. Bowel sounds normal. No organomegaly. No abdominal bruits. Extremities: reveal no edema. No clubbing or cyanosis Neurologically awake, alert, oriented x3 with well-coordinated movements. No focal deficits noted Skin: No rash or skin lesions. Psychiatric: Cooperative. Nonsuicidal Musculoskeletal: No joint swelling or deformity. Normal range of motion. - Labs CBC & Chem 7: 06/04/21 12:42 06/04/21 12:42 Labs: Abnormal Lab Results - Last 24 Hours (Table) 06/03/21 06/03/21 Range/Units 08:40 08:40 RBC 3.77 L (3.80-5.40) m/uL Lymphocytes # 0.9 L (1.0-4.8) k/uL Sodium 132 L (137-145) mmol/L Creatinine 0.46 L (0.52-1.04) mg/dL Glucose 112 H (74-99) mg/dL AST 78 H (14-36) U/L ALT 43 H (4-34) U/L Alkaline Phosphatase 415 H (38-126) U/L Total Protein 5.1 L (6.3-8.2) g/dL Albumin 2.4 L (3.5-5.0) g/dL Assessment and Plan Assessment: Acute ST elevated AR status post cardiac catheterization stent placement to the LAD. Acute hypoxic respiratory failure. Patient was on BiPAP post procedure..Currently on NC at 12L/min Hypotension due to Cardiogenic shock. Off pressors now. Acute CHF with ejection fraction less than 20% with global hypokinesis. Hypovolemic hyponatremia due to diuresis. Hypokalemia Elevated liver enzymes DVT prophylaxis. Plan: Patient is being monitored in MICU. Was initially on BiPAP and transition to Ventimask--->NC. Patient is off pressor support now. Patient was on IV Lasix due to pulmonary vascular congestion and effusion.. Right heart catheterization showed low filling pressures. IV Lasix has been di scontinued. Patient was on milrinone drip. Cardiology is planning to start digoxin. Continue with aspirin, prasugrel and statins. LDL 122. Repeat CBC and CMP. Cardiology and pulmonary is on board. Continue to follow closely. Time with Patient: Greater than 30
--- NOTE | 2021-06-05 00:12 | P.PN ---
Subjective Progress Note Date: 06/04/21 Principal diagnosis: Acute ST elevated [place] Patient is a 60-year-old female without significant past medical history presents to ER with complaints of chest pain. Patient states that last night she ate chicken Rober for dinner and since then she has been having nauseous and diaphoretic. Patient initially thought it flulike symptoms and food poisoning. Patient is still having heaviness in the chest mainly in the mid retrosternal and heavy pressure which made her come to ER today morning.. He denies any radiation of the pain. Denies any associated shortness of breath. No fever no chills. No cough or sputum production. Denies any recent illnesses. Patient had an EKG in the ER showed ST elevation in the anterior leads and STEMI team was activated. Chest x-ray showed there is some interstitial changes within the lungs. Correlate for pneumonia. Follow-up suggested. Laboratory data showed WBC 13.5 hemoglobin 14.1 platelets 322 lymphocytes 0.7 Sodium 137 potassium 4.3 chloride 105 bicarb is 24 BUN 19 and creatinine 0.56 AST 261 ALT 248 and alk phos 230 troponin 12.3 and coronavirus PCR not detected. 05/28/2021 Patient is in the MICU. Lying in the bed. Awake alert oriented x3. Currently on Ventimask. Patient also shortness of breath and nausea. Currently off pressor support. 2D echocardiogram showed there is severe global hypokinesis of LV. Overall left ventricular systolic function is severely impaired with ejection fraction less than 20%. Chest x-ray showed mild interval worsening in the acute cardiopulmonary disease. Findings are nonspecific and could reflect an acute inflammatory process or pulmonary edema. Short-term follow-up and clinical correlation is recommended. Patient was started on Lasix IV 40 mg every 8 hourly as blood pressure tolerates. Blood pressure is on the lower side. No complaints of dizziness or lightheadedness. Denies any diarrhea. Patient is able to tolerate oral diet slowly. WBC 24.7 hemoglobin 14.1 platelets 305 BUN 26 and creatinine 0.89 AST 695 ALT 86 alk phos 156 and total cholesterol is 206 Cardiology and pulmonary is on board. 05/29/2021 Patient is currently lying in the bed. Saturating well via nasal cannula at 12 L. Patient is diuresing well with IV Lasix. Patient states that her breathing is better today. Chest x-ray showed moderate interval worsening in the bilateral lung infiltrates. Possible developing pleural effusions. Patient was started midodrine due to hypotension. Laboratory data showed WBC trending down to 14.7 hemoglobin 13.1 platelets 217 Sodium 128 potassium 4.4 thyroid 97, BUN 28 and creatinine 0.68, Calcium 8.2 05/30/2021 Patient is in MICU. Currently being continued on IV Lasix and midodrine. Also on milrinone drip. Blood pressure is at the borderline. Diuresing well. However sodium level dropped to 126 today. No complaints of chest pain. Shortness of breath is improving. Patient is able to tolerate 25% of the meal. Complains of nausea. No episodes of vomiting. No abdominal pain or diarrhea. No headache or dizziness or lightheadedness. No dysuria. Laboratory showed WBC trending down to 10.7 hemoglobin 12.4 and platelets 218 Sodium 126, potassium 3.3, chloride 92, BUN 19 and creatinine 0.6 Patient was given 20 mEq of potassium today. 05/31/2021 Patient is in the MICU. Currently sitting in the chair. Awake alert and oriented times instructions better today. Currently requiring oxygen at 2 L via nasal cannula. Patient is able to walk few steps. Patient is being continued on milrinone drip and also on IV Lasix every 8 hourly. Laboratory showed sodium 130 potassium 3.6 bicarb 32 and creatinine level 0.62, WBC 9.9 and hemoglobin 12.6 Chest x-ray showed improved aeration in the mid left lung and bibasilar edema. Pulmonary and cardiology is on board. Discussed with the patient and her at bedside in detail. 06/01/2021 Patient is in the MICU. Awake alert and oriented x3. Blood pressure is on the lower side. Patient is being continued on milrinone drip and also IV Lasix. Currently requiring oxygen at 4 L via nasal cannula. Patient still having sinus tachycardia. Tolerating oral diet. Cardiology is planning for right heart catheterization today. Patient has been afebrile. No nausea vomiting or abdominal pain or diarrhea. No headache or dizziness. Lab data showed WBC 9.9 hemoglobin 12.6 platelets 241 Sodium 130 potassium 3.6 chloride 93 bicarb is 32 BUN 59 creatinine 0.62 06/02/2021 Patient is status post left heart catheterization showed low left and right- sided filling pressures. Normal cardiac output. Patient is in MICU. Currently Lasix has been discontinued and continued milrinone drip. Systolic blood pressures in the upper 90s. Denies any complaints of dizziness or lightheadedness. Patient has been afebrile. Sitting in the chair comfortably. No cough or sputum production. Chest x-ray today showed developing bibasilar infiltrates. Correlate for atelectasis or pneumonia. Atypical edema is considered less likely. Limited view echocardiogram was done today showed overall left ventricular systolic function severely impaired with ejection fraction 20 to 25%. Laboratory data showed WBC 8.8 hemoglobin 11.3 and platelets 213 Sodium 123 potassium 4.2 chloride 99 BUN 10 and creatinine 0.47 and calcium 8.1 06/03/2021 Patient is currently sitting in the chair comfortably. Awake alert and oriented x3. Requiring oxygen at 2 L via nasal cannula. Blood pressure has been stable with SBP in lower 90s. Patient is being continued on midodrine and cardiology is planning to add digoxin. Chest x-ray showed bibasilar infiltrates worsening in the left lower lobe. Patient is not on any pressor support. Laboratory data showed WBC 9.3 hemoglobin 11.8 and platelets 218 Sodium 132 potassium 4.7 chloride 102 BUN 7 and creatinine 0.46 and liver enzymes are trending down. Cardiology and pulmonary is on board. Patient is being transferred to select care unit today. 06/04/2021 Patient is currently sitting in the chair comfortably. No complaints of chest pain or worsening shortness of breath. Currently on room air at 98%. Heart rate is at 110. Blood pressure 84/55. Patient is on digoxin and also on midodrine. Patient is being continued on aspirin and Effient. Patient states that she feels good. No headache or dizziness or lightheadedness. Laboratory showed sodium 133 potassium 4.6 chloride 102 BUN 7 creatinine 0.49 AST 73 ALT is 52 alk phos 482 and total protein is 5.4 and albumin 2.6. Cardiology and pulmonary is on board. Current medications reviewed. Objective - Vital Signs Vital signs: Vital Signs Temp 98.2 F 06/04/21 19:33 Pulse 110 H 06/04/21 19:33 Resp 16 06/04/21 19:33 BP 84/69 06/04/21 19:33 Pulse Ox 98 06/04/21 19:33 Intake & Output 06/04/21 06/04/21 06/05/21 06:59 18:59 06:59 Intake Total 200 780 Balance 200 780 Weight 39.9 kg Intake: Intake, IV Titration 200 Amount Sodium Chloride 0.9% 200 200 ml @ 999 mls/hr IV .Q13M ONE Rx#:[id number] Oral 780 Other: Voiding Method Toilet Toilet # Voids 1 2 ABP, PAP, CO, CI - Last Documented Arterial Blood Pressure 8/4 Pulmonary Artery Pressure 29/24 Cardiac Output 3.6 Cardiac Index 3.6 - Exam PHYSICAL EXAMINATION: Patient is lying in the bed comfortably, no acute distress, awake alert and oriented.. HEENT: Normocephalic. Neck is supple. Pupils reactive. Nostrils clear. Oral cavity is moist. Neck reveals no JVD, carotid bruits, or thyromegaly. CHEST EXAMINATION: Trachea is central. Symmetrical expansion. minimal Bibasilar crackles and No wheezing.. CARDIAC: Normal S1, S2 with no gallops. No murmurs ABDOMEN: Soft. Bowel sounds normal. No organomegaly. No abdominal bruits. Extremities: reveal no edema. No clubbing or cyanosis Neurologically awake, alert, oriented x3 with well-coordinated movements. No focal deficits noted Skin: No rash or skin lesions. Psychiatric: Cooperative. Nonsuicidal Musculoskeletal: No joint swelling or deformity. Normal range of motion. - Labs CBC & Chem 7: 06/04/21 12:42 06/04/21 12:42 Labs: Abnormal Lab Results - Last 24 Hours (Table) 06/04/21 Range/Units 12:42 Sodium 133 L (137-145) mmol/L Creatinine 0.49 L (0.52-1.04) mg/dL Glucose 109 H (74-99) mg/dL AST 73 H (14-36) U/L ALT 52 H (4-34) U/L Alkaline Phosphatase 482 H (38-126) U/L Total Protein 5.4 L (6.3-8.2) g/dL Albumin 2.6 L (3.5-5.0) g/dL Assessment and Plan Assessment: Acute ST elevated [place] status post cardiac catheterization stent placement to the LAD. Acute hypoxic respiratory failure. Patient was on BiPAP post procedure..Currently on NC at 12L/min Hypotension due to Cardiogenic shock. Off pressors now. Acute CHF with ejection fraction less than 20% with global hypokinesis. Hypovolemic hyponatremia due to diuresis. Hypokalemia Elevated liver enzymes DVT prophylaxis. Plan: Patient is being monitored in MICU. Was initially on BiPAP and transition to Ventimask--->NC. Patient is off pressor support now. Patient was on IV Lasix due to pulmonary vascular congestion and effusion.. Right heart catheterization showed low filling pressures. IV Lasix has been discontinued. Patient was on milrinone drip. started on digoxin. Midodrin added. Continue with aspirin, prasugrel and statins. LDL 122. Repeat CBC and CMP. Cardiology and pulmonary is on board. Continue to follow closely. Time with Patient: Greater than 30
[2021-06-05] MEDS: MIDODRINE 5 MG TAB PO SCH ×3 (06:34→17:06)
[2021-06-05] MEDS: ASPIRIN 81 MG PO SCH (08:39)
[2021-06-05] MEDS: PRASUGREL 10 MG TAB PO SCH (08:39)
[2021-06-05] MEDS: FAMOTIDINE 20 MG TAB PO SCH ×2 (08:39→20:09)
[2021-06-05] MEDS: HEPARIN SODIUM,PORCINE/PF 5,000 UNIT/0.5 ML SYRINGE SQ SCH ×2 (08:39→20:09)
[2021-06-05] MEDS: DIGOXIN 250 MCG/ML 2 ML AMP IVP SCH (08:40)
--- NOTE | 2021-06-05 10:03 | P.PN ---
Subjective Progress Note Date: 06/05/21 On 05/29/2021 patient seen in follow-up in intensive care unit, she is awake and alert, she is on a nonrebreather mask, and she has been wearing BiPAP support intermittently, she remains on IV diuretics with Lasix 40 mg 3 times daily, she is -1.6 L net fluid balance, her chest x-ray today shows worsened pulmonary infiltrates. Her serum sodium is 128, potassium is 4.4, chloride is 97, BUN is 28 creatinine 0.68. White count is improved and is down to 14.7, hemoglobin is 13.2. Patient has significant chest pain. Patient has had some low blood pressures with systolic in the 70s and 80s, and diastolic in the 50s, she will be started on midodrine. Cardiology is following, does not recommend any initiation of inotropes unless the urine output significantly drops, patient has sinus tachycardia which is thought to be compensatory to cardiogenic shock. Cardiology recommends repeat arterial pressure around 55 or better as low as patient is asymptomatic. Patient continues on aspirin and Effient. Echocardiogram has been reviewed showing severe global hypokinesis and left ventricular systolic function of less than 20%. On 06/02/2021 patient seen in follow-up in the intensive care unit, yesterday she was taken back to the phlebotomy lab assistant for insertion of [place]Graham catheter for evaluation filling pressures, her filling pressures were low, and cardiac output and index were within normal limits with cardiac output of 3.67 L/m, and cardiac index of 2.96 L/m/m. PA pressure was 13/5, and pulmonary wedge pressure was 6. Patient is currently on 8 L per partial rebreather mask, she feels more comf ortable with the mask, denies any chest pain, she stated she had some limited cough last night, no phlegm production, percent is 99-100%, she can probably wean down from the partial rebreather. She is afebrile, her blood pressure is in the 80s over 50s, most recent blood pressure this morning is 91/64. PA pressure is 24/19, her CVP is 10. Her latest cardiac output is 3.6. Lasix is on hold, she does in sinus mechanism, tachycardic with a rate of 111-124, no fever or chills, patient has been voiding, she has produced 1.7 L. Urine output, however she is in positive fluid balance of 760 mL over the last 24 hours, no JVD, no lower extremity swelling, lung sounds reveal essentially clear breath sounds, today's chest x-ray has been reviewed showing developing bibasilar infiltrates correlate atelectasis and pneumonia. These labs have been reviewed, white blood cell, 3.8, hemoglobin is 11.3, serum sodium is 129, potassium is 4.2, BUN is 10, creatinine 0.49, anion gap is 3, and CO2 is 27. Patient is tolerating oral intake, no nausea vomiting or diarrhea. She remains on subcu heparin 5000 units every 12 hours, she has been started on midodrine 5 mg 3 times a day for blood pressure support, she remains on milrinone infusion at 0.37 mics per kilo per minute, the Levophed has been off, and she is on 0.9 normal saline at rate of 80 ML per hour. Neurologically patient is intact, slightly fatigued, but no acute distress, breathing comfortably, follow no commands, moving all 4 extremities, distal pulses are palpable, skin is warm dry and intact. Today's evaluation on 06/03/2021 patient seen in follow-up in intensive care unit, she is resting comfortably in bed, she is currently on 2 L of oxygen with a pulse ox of 96%, she's been afebrile, hemodynamically she's been stable, her systolic blood pressures have been in the 80s and 90s, and diastolic in the 60s with a mean in the 69-76 range. [place] has been discontinued, however cardiac indices obtained when he was first put in were within normal limits. Patient remains on midodrine 10 mg 3 times daily, and Lasix has not been restarted yet, today's chest x-ray has been reviewed showing bibasilar infiltrates worsening in the left lower lobe. Clinically patient is breathing comfortably, still on the same amount of oxygen at 2 L, lung sounds reveal diminished breath sounds, no rhonchi or wheezing. No complaints of chest pain. Patient is not on any vasoactive drips, is currently off milrinone drip, no leave aside, she is on 0.9 normal saline at a rate of KVO rate. His labs have been reviewed, white blood cell count is 9.3, hemoglobin is 11.8, platelet count is 218, BMP is still pending right now. Patient is on antiplatelet therapy with aspirin and Effient digitoxin is being initiated by cardiology. 06/04/2021, the patient is on a medical floor. The patient is is doing well and the patient has Oxygen and she is on room air oxygen for now. She has been also taken off milrinone. She is on no diuretics for now. No significant respiratory distress patient sitting up on a chair. No cardiac arrhythmias. Cardiology is on the case regarding herShe is less tachycardic compared to yesterday and the patient's heart rate is currently at 105. Most recent BP is 107/93. A Combination of Aspirin and Effient. She Was Given Digoxin 0.125 Mg a Daily Basis and the Patient Is Also on Midodrine for Blood Pressure Control. 06/05/2021, the patient is doing well. No complaints. No labs yet from this morning. BP is 89/58 and the patient is on Midrin. No respiratory difficulties. No cough or sputum production. No chest pain. She is using incentive spirometer and the patient remains on room air oxygen. No significant cardiac arrhythmias at this point in time. Objective - Vital Signs Vital signs: Vital Signs Temp 98.1 F 06/05/21 08:00 Pulse 101 H 06/05/21 08:00 Resp 16 06/05/21 08:00 BP 89/58 06/05/21 08:00 Pulse Ox 96 06/05/21 03:25 Intake & Output 06/04/21 06/05/21 06/05/21 18:59 06:59 18:59 Intake Total 780 Balance 780 Weight 39.4 kg Intake: Oral 780 Other: Voiding Method Toilet # Voids 2 1 ABP, PAP, CO, CI - Last Documented Arterial Blood Pressure 8/4 Pulmonary Artery Pressure 29/24 Cardiac Output 3.6 Cardiac Index 3.6 - Exam GENERAL EXAM: Alert, very pleasant, 60-year-old female, on room air O2 HEAD: Normocephalic/atraumatic. EYES: Normal reaction of pupils, equal size. Conjunctiva pink, sclera white. NOSE: Clear with pink turbinates. THROAT: No erythema or exudates. NECK: No masses, no JVD, no thyroid enlargement, no adenopathy. CHEST: No chest wall deformity. Symmetrical expansion. LUNGS: Equal air entry with bibasilar crackles CVS: Regular rate and rhythm, normal S1 and S2, no gallops, no murmurs, no rubs ABDOMEN: Soft, nontender. No hepatosplenomegaly, normal bowel sounds, no guarding or rigidity. EXTREMITIES: No clubbing, no edema, no cyanosis, 1+ pulses and upper and lower extremities. MUSCULOSKELETAL: Muscle strength and tone normal. SPINE: No scoliosis or deformity SKIN: No rashes CENTRAL NERVOUS SYSTEM: Alert and oriented -3. No focal deficits, tone is normal in all 4 extremities. PSYCHIATRIC: Alert and oriented -3. Appropriate affect. Intact judgment and insight. - Labs CBC & Chem 7: 06/04/21 12:42 06/04/21 12:42 Labs: Abnormal Lab Results - Last 24 Hours (Table) 06/04/21 Range/Units 12:42 Sodium 133 L (137-145) mmol/L Creatinine 0.49 L (0.52-1.04) mg/dL Glucose 109 H (74-99) mg/dL AST 73 H (14-36) U/L ALT 52 H (4-34) U/L Alkaline Phosphatase 482 H (38-126) U/L Total Protein 5.4 L (6.3-8.2) g/dL Albumin 2.6 L (3.5-5.0) g/dL Assessment and Plan Plan: [address] elevated myocardial infarction involving anterolateral wall, status post proximal LAD PCI and stenting . The patient also had an Impella placement, right femoral angiogram, right femoral arteriotomy and closure with perclose. Cardiology is considering taking her back to the [facility] later today for further evaluation. Meanwhile, the patient is feeling of any chest pain and the patient is responding to diuresis and she remains on milrinone. The patient remains free of any chest pain. The patient was optimized in regards to her CHF. She is currently on a combination of aspirin and Effient. 2 Cardiogenic shock, status post Impella placement however this had to be removed related to occlusion and no blood flow to right lower extremity. Subsequently, the patient was supported with milrinone which ultimately was discontinued. The patient was diuresed adequately while being on milrinone and patient is currently off diuretics. The patient is currently on digoxin. She has advanced cardiomyopathy with an ejection fraction of 20%. 3 Acute chronic CHF, currently echocardiogram shows EF of less than 20% and severe global hypokinesia noted RV is normal. No significant valvular abnormalities. No evidence of any pericardial effusion. Today's chest x-ray showing improving bibasilar and left midlung reticulonodular edema. 4 Acute hypoxic respiratory failure secondary to pulmonary edema, the patient was weaned off the oxygen patient is currently on room air oxygen 5 Acute elevation of liver enzymes possibly related to CHF 6 Hyponatremia, likely hypervolemic due to acute systolic CHF, improved and the patient's sodium level at 130 7 hypotension, currently on midodrine Plan: On today's evaluation, the patient's condition remains stable. The patient remains on room air oxygen. The patient is on a combination of aspirin and Effient. The patient is on digoxin. The patient is on milrinone. Monitor hemodynamics. Monitor the blood pressure. No active pulmonary issues. We'll sign off the case and will leave the rest of the management to cardiology and medicine.
[2021-06-05 12:48] LABS: Potassium 4.6 mmol/L (3.5-5.1)
[2021-06-05 12:49] LABS: ALT 50 U/L (4-34); AST 58 U/L (14-36); African American GFR (CKD) >90 (>60 ml/min/1.73 sqM); Albumin 2.7 g/dL (3.5-5.0); Alkaline Phosphatase 518 U/L (38-126); Anion Gap 5 mmol/L; Blood Urea Nitrogen 11 mg/dL (7-17); Carbon Dioxide 27 mmol/L (22-30); Chloride 102 mmol/L (98-107); Glucose 94 mg/dL (74-99); Non-African American GFR(CKD) >90 (>60 ml/min/1.73 sqM); Sodium 134 mmol/L (137-145); Total Bilirubin 0.3 mg/dL (0.2-1.3); Total Protein 5.5 g/dL (6.3-8.2)
--- NOTE | 2021-06-05 14:00 | P.PN ---
Subjective Progress Note Date: 06/05/21 HISTORY OF PRESENT ILLNESS This is a 60-year-old female who was admitted to the hospital to anterolateral ME and cardiac shock. Patient had stent placement of the LAD. Patient's LV function is severely impaired, according to the echocardiogram. Patient is also dealing with hyponatremia. Patient is on nonrebreather. Getting IV Lasix. Chest x-ray showed ongoing evidence of pulmonary edema and small left-sided pleural effusion. Patient is -2.3 L of fluid balance over the last 24 hours. She is currently on Lasix . Patient is not on beta trevin because of hypotension. She was also put on metered in 5 mg by mouth 3 times daily. Patient prognosis still guarded. However, patient denies any chest pain or shortness of breath and seemed to be optimistic 05/31/2021: This patient seemed to be doing better today. Denies any chest pain. Looks frail and weak. No respiratory distress. Chest x-ray shows improvement. Her blood pressure is more stable on milrinone. Lungs are relatively clear. Heart is regular. Dr. Smart is going to do a right heart catheterization to see if she needs LVAD. We'll repeat echocardiogram tomorrow. Increase activity slowly. 06/02/2021: This patient had [place] catheter insertion, yesterday. She was found to have low filling pressures and a reasonable cardiac output. Her diuretics have been discontinued and patient has been given IV fluids. Her CVP about 10. Patient doesn't have any JVD or peripheral edema. Lungs appeared to be clear. Chest x-ray does show some atelectatic changes at the bases. Patient however still tachycardic. Blood pressure is running in the 90 systolic range. At this point. [place] is not working well and that can be removed. We may try adding digoxin. Because of the sinus tachycardia and CHF. We'll also repeat the echocardiogram to assess LV function. We'll increase activity as tolerated. Prognosis is guarded 06/03/2021: This patient seemed to be relatively stable. Still tachycardic. Denies any chest pain. Vital signs show borderline blood pressure of 90-95. Chest x-ray shows some infiltrate but patient is feeling fine without any chest pain or shortness of breath. [place]Graham catheters removed. We'll going to remove his central line. I'm going start her digoxin to CV can improve her heart rate and blood pressure. Patient could be transferred to telemetry unit. Echocardiogram showed severe LV dysfunction with ejection fraction 20-25% with no significant improvement with severe anteroapical hypokinesia 06/04/2021: Patient is seen today on the cardiac stepdown unit. She continues to have shortness of breath with exertion. She denies having any chest pain or shortness of breath. Patient continues to have have mild tachycardia and hypotension. Patient has been started on IV digoxin. CBC is unremarkable. Sodium 133, creatinine 0.49. Liver enzymes are elevated with AST 73, ALT 52 and alkaline phosphatase 482. Repeat chest x-ray report is pending 06/05/2021: Blood pressure remains on the low side the patient has been asymptomatic while on midodrine. Patient denies having any chest pain or shortness of breath. Heart rate in the high 90s with digoxin. We'll plan to continue current dose of digoxin 125 g IV push daily and obtain digoxin level tomorrow morning. Chest x-ray from yesterday revealed small bilateral infiltrates and a small left pleural effusion, stable. PHYSICAL EXAMINATION Gen: This is a thin cachectic appearing 60-year-old female. She is resting in a recliner and appears to be comfortable and in no acute distress. VS: Afebrile, heart rate 105, blood pressure 99/60, pulse ox 96% on room air. painter spray sinus tachycardia. HEENT: Head is atraumatic, normocephalic. Pupils equal, round. Sclerae is anicteric. NECK: Supple. No JVD. No lymphadenopathy. No thyromegaly. LUNGS: Crackles bilateral bases. No wheezes or rhonchi. No intercostal retractions. HEART: Irregular rate and rhythm. No murmur. ABDOMEN: Soft. Bowel sounds are present. No masses. No tenderness. EXTREMITIES: No pedal edema. No calf tenderness. NEUROLOGICAL: Patient is awake, alert and oriented x3. Cranial nerves 2 through 12 are grossly intact. ASSESSMENT Acute systolic heart failure Severe Ischemic cardiomyopathy Acute ST elevated myocardial infarction, anterior lateral Cardiogenic shock PLAN Plan to order LifeVest on Sunday with sample case porter Continue digoxin 125 g IV push daily Obtain digoxin level tomorrow morning Further recommendations to follow based upon clinical course Thank you kindly for this consultation. Nurse practitioner note has been reviewed, I agree with documented findings and plan of care. Patient was seen and examined. Objective - Vital Signs Vital signs: Vital Signs Temp 98.1 F 06/05/21 08:00 Pulse 101 H 06/05/21 08:00 Resp 16 06/05/21 08:00 BP 89/58 06/05/21 08:00 Pulse Ox 96 06/05/21 03:25 Intake & Output 06/04/21 06/05/21 06/05/21 18:59 06:59 18:59 Intake Total 780 118 Balance 780 118 Weight 39.4 kg Intake: Oral 780 118 Other: Voiding Method Toilet # Voids 2 1 ABP, PAP, CO, CI - Last Documented Arterial Blood Pressure 8/ Pulmonary Artery Pressure 29/24 Cardiac Output 3.6 Cardiac Index 3.6 - Labs CBC & Chem 7: 06/04/21 12:42 06/05/21 12:07 Labs: Abnormal Lab Results - Last 24 Hours (Table) 06/04/21 Range/Units 12:42 Sodium 133 L (137-145) mmol/L Creatinine 0.49 L (0.52-1.04) mg/dL Glucose 109 H (74-99) mg/dL AST 73 H (14-36) U/L ALT 52 H (4-34) U/L Alkaline Phosphatase 482 H (38-126) U/L Total Protein 5.4 L (6.3-8.2) g/dL Albumin 2.6 L (3.5-5.0) g/dL
[2021-06-05] MEDS: POTASSIUM CHLORIDE ER 20 MEQ TAB.ER PO SCH (14:52)
--- NOTE | 2021-06-05 21:41 | P.PN ---
Subjective Progress Note Date: 06/05/21 Principal diagnosis: Acute ST elevated CA Patient is a 60-year-old female without significant past medical history presents to ER with complaints of chest pain. Patient states that last night she ate chicken Rober for dinner and since then she has been having nauseous and diaphoretic. Patient initially thought it flulike symptoms and food poisoning. Patient is still having heaviness in the chest mainly in the mid retrosternal and heavy pressure which made her come to ER today morning.. He denies any radiation of the pain. Denies any associated shortness of breath. No fever no chills. No cough or sputum production. Denies any recent illnesses. Patient had an EKG in the ER showed ST elevation in the anterior leads and STEMI team was activated. Chest x-ray showed there is some interstitial changes within the lungs. Correlate for pneumonia. Follow-up suggested. Laboratory data showed WBC 13.5 hemoglobin 14.1 platelets 322 lymphocytes 0.7 Sodium 137 potassium 4.3 chloride 105 bicarb is 24 BUN 19 and creatinine 0.56 AST 261 ALT 248 and alk phos 230 troponin 12.3 and coronavirus PCR not detected. 05/28/2021 Patient is in the MICU. Lying in the bed. Awake alert oriented x3. Currently on Ventimask. Patient also shortness of breath and nausea. Currently off pressor support. 2D echocardiogram showed there is severe global hypokinesis of LV. Overall left ventricular systolic function is severely impaired with ejection fraction less than 20%. Chest x-ray showed mild interval worsening in the acute cardiopulmonary disease. Findings are nonspecific and could reflect an acute inflammatory process or pulmonary edema. Short-term follow-up and clinical correlation is recommended. Patient was started on Lasix IV 40 mg every 8 hourly as blood pressure tolerates. Blood pressure is on the lower side. No complaints of dizziness or lightheadedness. Denies any diarrhea. Patient is able to tolerate oral diet slowly. WBC 24.7 hemoglobin 14.1 platelets 305 BUN 26 and creatinine 0.89 AST 695 ALT 86 alk phos 156 and total cholesterol is 206 Cardiology and pulmonary is on board. 05/29/2021 Patient is currently lying in the bed. Saturating well via nasal cannula at 12 L. Patient is diuresing well with IV Lasix. Patient states that her breathing is better today. Chest x-ray showed moderate interval worsening in the bilateral lung infiltrates. Possible developing pleural effusions. Patient was started midodrine due to hypotension. Laboratory data showed WBC trending down to 14.7 hemoglobin 13.1 platelets 217 Sodium 128 potassium 4.4 thyroid 97, BUN 28 and creatinine 0.68, Calcium 8.2 05/30/2021 Patient is in MICU. Currently being continued on IV Lasix and midodrine. Also on milrinone drip. Blood pressure is at the borderline. Diuresing well. However sodium level dropped to 126 today. No complaints of chest pain. Shortness of breath is improving. Patient is able to tolerate 25% of the meal. Complains of nausea. No episodes of vomiting. No abdominal pain or diarrhea. No headache or dizziness or lightheadedness. No dysuria. Laboratory showed WBC trending down to 10.7 hemoglobin 12.4 and platelets 218 Sodium 126, potassium 3.3, chloride 92, BUN 19 and creatinine 0.6 Patient was given 20 mEq of potassium today. 05/31/2021 Patient is in the MICU. Currently sitting in the chair. Awake alert and oriented times instructions better today. Currently requiring oxygen at 2 L via nasal cannula. Patient is able to walk few steps. Patient is being continued on milrinone drip and also on IV Lasix every 8 hourly. Laboratory showed sodium 130 potassium 3.6 bicarb 32 and creatinine level 0.62, WBC 9.9 and hemoglobin 12.6 Chest x-ray showed improved aeration in the mid left lung and bibasilar edema. Pulmonary and cardiology is on board. Discussed with the patient and her at bedside in detail. 06/01/2021 Patient is in the MICU. Awake alert and oriented x3. Blood pressure is on the lower side. Patient is being continued on milrinone drip and also IV Lasix. Currently requiring oxygen at 4 L via nasal cannula. Patient still having sinus tachycardia. Tolerating oral diet. Cardiology is planning for right heart catheterization today. Patient has been afebrile. No nausea vomiting or abdominal pain or diarrhea. No headache or dizziness. Lab data showed WBC 9.9 hemoglobin 12.6 platelets 241 Sodium 130 potassium 3.6 chloride 93 bicarb is 32 BUN 59 creatinine 0.62 06/02/2021 Patient is status post left heart catheterization showed low left and right- sided filling pressures. Normal cardiac output. Patient is in MICU. Currently Lasix has been discontinued and continued milrinone drip. Systolic blood pressures in the upper 90s. Denies any complaints of dizziness or lightheadedness. Patient has been afebrile. Sitting in the chair comfortably. No cough or sputum production. Chest x-ray today showed developing bibasilar infiltrates. Correlate for atelectasis or pneumonia. Atypical edema is considered less likely. Limited view echocardiogram was done today showed overall left ventricular systolic function severely impaired with ejection fraction 20 to 25%. Laboratory data showed WBC 8.8 hemoglobin 11.3 and platelets 213 Sodium 123 potassium 4.2 chloride 99 BUN 10 and creatinine 0.47 and calcium 8.1 06/03/2021 Patient is currently sitting in the chair comfortably. Awake alert and oriented x3. Requiring oxygen at 2 L via nasal cannula. Blood pressure has been stable with SBP in lower 90s. Patient is being continued on midodrine and cardiology is planning to add digoxin. Chest x-ray showed bibasilar infiltrates worsening in the left lower lobe. Patient is not on any pressor support. Laboratory data showed WBC 9.3 hemoglobin 11.8 and platelets 218 Sodium 132 potassium 4.7 chloride 102 BUN 7 and creatinine 0.46 and liver enzymes are trending down. Cardiology and pulmonary is on board. Patient is being transferred to select care unit today. 06/04/2021 Patient is currently sitting in the chair comfortably. No complaints of chest pain or worsening shortness of breath. Currently on room air at 98%. Heart rate is at 110. Blood pressure 84/55. Patient is on digoxin and also on midodrine. Patient is being continued on aspirin and Effient. Patient states that she feels good. No headache or dizziness or lightheadedness. Laboratory showed sodium 133 potassium 4.6 chloride 102 BUN 7 creatinine 0.49 AST 73 ALT is 52 alk phos 482 and total protein is 5.4 and albumin 2.6. Cardiology and pulmonary is on board. 06/05/2021 Patient is currently sitting in his chair comfortably. No complaints of chest pain. Denies any dizziness or lightheadedness. Blood pressure is on the lower side. Patient is on midodrine and also continued on IV digoxin. No complaints of chest pain or shortness of breath. Tolerating oral diet. No nausea vomiting or abdominal pain or diarrhea. Cardiology and pulmonary is on board. Laboratory showed sodium 134 potassium 4.6 chloride 102 BUN 11 creatinine 0.56. AST 58 and ALT 15 alk phos 518. Current medications reviewed. Objective - Vital Signs Vital signs: Vital Signs Temp 98.1 F 06/05/21 08:00 Pulse 103 H 06/05/21 16:00 Resp 16 06/05/21 16:00 BP 88/52 06/05/21 16:00 Pulse Ox 98 06/05/21 16:00 Intake & Output 06/04/21 06/05/21 06/05/21 18:59 06:59 18:59 Intake Total 780 236 Balance 780 236 Weight 39.4 kg Intake: Oral 780 236 Other: Voiding Method Toilet # Voids 2 1 ABP, PAP, CO, CI - Last Documented Arterial Blood Pressure 8/4 Pulmonary Artery Pressure 29/24 Cardiac Output 3.6 Cardiac Index 3.6 - Exam PHYSICAL EXAMINATION: Patient is lying in the bed comfortably, no acute distress, awake alert and oriented.. HEENT: Normocephalic. Neck is supple. Pupils reactive. Nostrils clear. Oral cavity is moist. Neck reveals no JVD, carotid bruits, or thyromegaly. CHEST EXAMINATION: Trachea is central. Symmetrical expansion. Rt minimal Bibasilar crackles and No wheezing.. CARDIAC: Normal S1, S2 with no gallops. No murmurs ABDOMEN: Soft. Bowel sounds normal. No organomegaly. No abdominal bruits. Extremities: reveal no edema. No clubbing or cyanosis Neurologically awake, alert, oriented x3 with well-coordinated movements. No focal deficits noted Skin: No rash or skin lesions. Psychiatric: Cooperative. Nonsuicidal Musculoskeletal: No joint swelling or deformity. Normal range of motion. - Labs CBC & Chem 7: 06/04/21 12:42 06/05/21 12:07 Labs: Abnormal Lab Results - Last 24 Hours (Table) 06/05/21 Range/Units 12:07 Sodium 134 L (137-145) mmol/L AST 58 H (14-36) U/L ALT 50 H (4-34) U/L Alkaline Phosphatase 518 H (38-126) U/L Total Protein 5.5 L (6.3-8.2) g/dL Albumin 2.7 L (3.5-5.0) g/dL Assessment and Plan Assessment: Acute ST elevated CA status post cardiac catheterization stent placement to the LAD. Acute hypoxic respiratory failure. Patient was on BiPAP post procedure..Currently on NC at 12L/min Hypotension due to Cardiogenic shock. Off pressors now. Acute CHF with ejection fraction less than 20% with global hypokinesis. Hypovolemic hyponatremia due to diuresis. Hypokalemia Elevated liver enzymes DVT prophylaxis. Plan: Patient is being monitored in MICU. Was initially on BiPAP and transition to Ventimask--->NC. Patient is off pressor support now. Patient was on IV Lasix due to pulmonary vascular congestion and effusion.. Right heart catheterization showed low filling pressures. IV Lasix has been discontinued. Patient was on milrinone drip. started on digoxin. Midodrin added. Continue with aspirin, prasugrel and statins. LDL 122. Repeat CBC and CMP. Cardiology and pulmonary is on board. Continue to follow closely. Time with Patient: Greater than 30
[2021-06-06] MEDS: MIDODRINE 5 MG TAB PO SCH ×3 (06:39→17:05)
[2021-06-06] MEDS: ASPIRIN 81 MG PO SCH (09:02)
[2021-06-06] MEDS: HEPARIN SODIUM,PORCINE/PF 5,000 UNIT/0.5 ML SYRINGE SQ SCH ×2 (09:02→20:25)
[2021-06-06] MEDS: DIGOXIN 250 MCG/ML 2 ML AMP IVP SCH (09:02)
[2021-06-06] MEDS: FAMOTIDINE 20 MG TAB PO SCH ×2 (09:02→20:25)
[2021-06-06] MEDS: PRASUGREL 10 MG TAB PO SCH (09:03)
[2021-06-06] MEDS: POTASSIUM CHLORIDE ER 20 MEQ TAB.ER PO SCH (09:03)
[2021-06-06 10:07] LABS: Basophils # (A) 0.1 k/uL (0-0.2); Basophils % (A) 1 %; Eosinophils % (A) 0 %; HCT 34.9 % (34.0-46.0); HGB 11.2 gm/dL (11.4-16.0); Lymphocytes # (A) 0.8 k/uL (1.0-4.8); Lymphocytes % (A) 9 %; MCH 30.8 pg (25.0-35.0); Mean Platelet Volume 8.5; Monocytes # (A) 0.4 k/uL (0-1.0); Monocytes % (A) 4 %; Neutrophils # (A) 7.6 k/uL (1.3-7.7); Neutrophils % (A) 85 %; Platelet Count 359 k/uL (150-450); RBC 3.64 m/uL (3.80-5.40); RDW 12.5 % (11.5-15.5)
[2021-06-06 10:34] LABS: African American GFR (CKD) >90 (>60 ml/min/1.73 sqM); Anion Gap 5 mmol/L; Blood Urea Nitrogen 14 mg/dL (7-17); Calcium 8.9 mg/dL (8.4-10.2); Carbon Dioxide 25 mmol/L (22-30); Chloride 99 mmol/L (98-107); Digoxin 2.1 ng/mL; Glucose 140 mg/dL (74-99); Non-African American GFR(CKD) >90 (>60 ml/min/1.73 sqM); Sodium 129 mmol/L (137-145)
--- NOTE | 2021-06-06 12:23 | US ---
EXAMINATION TYPE: US abdomen limited DATE OF EXAM: 06/06/2021 COMPARISON: NONE CLINICAL HISTORY: 60-year-old female Elevated liver enzymes. TECHNIQUE: Multiple sonographic images of the right upper quadrant are obtained. FINDINGS: EXAM MEASUREMENTS: Liver Length: 13.5 cm Gallbladder Wall: 0.2 cm CBD: 0.3 cm Right Kidney: 10.2x3.1x3.7 cm Pancreas: wnl Liver: wnl Gallbladder: wnl Evidence for sonographic Blood's sign: No CBD: wnl Right Kidney: wnl Incidental small right pleural effusion. IMPRESSION: 1. Incidental small right pleural effusion. 2. Otherwise, unremarkable sonographic examination of the right upper quadrant.
[2021-06-06] MEDS: FUROSEMIDE 10 MG TAB PO SCH (13:04)
[2021-06-06] MEDS: METOPROLOL TARTRATE 12.5 MG TAB PO SCH (14:57)
--- NOTE | 2021-06-06 14:58 | P.PN ---
Subjective This is a 60-year-old female who denies any significant past medical history. 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 We have been asked to see the patient in consultation for STEMI. Patient presented emergency department on 05/27/2021. She was admitted with anterolateral STEMI and cardiogenic shock. Echocardiogram showed severe LV dysfunction with ejection fraction 20-25% with no significant improvement with severe anteroapical hypokinesia. Patient underwent left cardiac catheterization with Dr. Smart on 05/27/2021 which revealed 100% LAD stenosis and 95% circumflex stenosis. Patient underwent PCI to LAD and status post embolization of circumflex thrombus downstream into a small caliber distal OM branch. Impella was placed. Patient underwent right heart catheterization on 06/01/[address] Smart which revealed normal cardiac output and low left and right sided filling pressures. Limited echo on 06/02/21 revealed EF of 2025% 06/06/21: Patient seen at bedside, she is in the bedside chair. She doesn't appear frail, she is able to walk around her room with no acute distress. Today she states she walked back and forth to her door and back 5 times. She denies chest pain, shortness of breath, lightheadedness, dizziness. Her blood pressure remains low and she is asymptomatic. Labs revealed sodium 129, potassium 5.0, BUN 14, serum creatinine 0.6, digoxin 2.1. She is currently maintained on aspirin 81 mg daily, IV digoxin 125mcg daily, midodrine 10 mg 3 times a day, potassium chloride 20meq daily, Effient 10 mg daily. PHYSICAL EXAM: VITAL SIGNS: Reviewed. GENERAL: In No acute distress HEENT:Neck Supple. No JVD. LUNGS: Respirations even and unlabored. Lungs essentially clear to auscultation bilaterally. HEART: Tachycardic Regular rate and rhythm. S1 and S2 heard. ABDOMEN: Soft. Nondistended. Nontender. EXTREMITIES: Normal range of motion. No clubbing or cyanosis. Peripheral pulses intact. No lower extremity edema NEUROLOGIC: Awake and alert. Oriented x 3. ASSESSMENT: Anterolateral STEMI status post proximal LAD PCI likely embolic in etiology with additional thrombus noted and circumflex which had embolized distally Cardiogenic shock, s/p Impella CP placement during catheterization however complicated by no flow to RLE Sinus tachycardia Acute on chronic systolic heart failure PLAN: We will start a low dose beta trevin metoprolol tartrate 6.25mg BID and low dose lasix 10mg daily Monitor patient closely Continue dual antiplatelet therapy with aspirin and Effient Continue statin We'll continue IV digoxin Due to patient risk of sudden cardiac , patient will require a LifeVest prior to Discharge. Case management consulted for assistance in Life Vest Further recommendations based on clinical course Nurse practitioner note has been reviewed by physician. Signing provider agrees with the documented findings, assessment, and plan of care. Objective - Vital Signs Vital signs: Vital Signs Temp 98.0 F 06/06/21 11:48 Pulse 100 06/06/21 14:40 Resp 17 06/06/21 14:40 BP 78/49 06/06/21 14:40 Pulse Ox 98 06/06/21 14:40 Intake & Output 06/05/21 06/06/21 06/06/21 18:59 06:59 18:59 Intake Total 436 200 477 Balance 436 200 477 Weight 39.7 kg Intake: Oral 436 200 477 Other: Voiding Method Toilet Toilet # Voids 1 2 ABP, PAP, CO, CI - Last Documented Arterial Blood Pressure 8/4 Pulmonary Artery Pressure /24 Cardiac Output 3.6 Cardiac Index 3.6 - Labs CBC & Chem 7: 06/06/21 09:39 06/06/21 09:39 Labs: Abnormal Lab Results - Last 24 Hours (Table) 06/06/21 06/06/21 Range/Units 09:39 09:39 RBC 3.64 L (3.80-5.40) m/uL Hgb 11.2 L (11.4-16.0) gm/dL Lymphocytes # 0.8 L (1.0-4.8) k/uL Sodium 129 L (137-145) mmol/L Glucose 140 H (74-99) mg/dL
--- NOTE | 2021-06-06 21:45 | P.PN ---
Subjective Progress Note Date: 06/06/[address] elevated CA Patient is a 60-year-old female without significant past medical history presents to ER with complaints of chest pain. Patient states that last night she ate chicken Rober for dinner and since then she has been having nauseous and diaphoretic. Patient initially thought it flulike symptoms and food poisoning. Patient is still having heaviness in the chest mainly in the mid retrosternal and heavy pressure which made her come to ER today morning.. He denies any radiation of the pain. Denies any associated shortness of breath. No fever no chills. No cough or sputum production. Denies any recent illnesses. Patient had an EKG in the ER showed ST elevation in the anterior leads and STEMI team was activated. Chest x-ray showed there is some interstitial changes within the lungs. Correlate for pneumonia. Follow-up suggested. Laboratory data showed WBC 13.5 hemoglobin 14.1 platelets 322 lymphocytes 0.7 Sodium 137 potassium 4.3 chloride 105 bicarb is 24 BUN 19 and creatinine 0.56 AST 261 ALT 248 and alk phos 230 troponin 12.3 and coronavirus PCR not detected. 05/28/2021 Patient is in the MICU. Lying in the bed. Awake alert oriented x3. Currently on Ventimask. Patient also shortness of breath and nausea. Currently off pressor support. 2D echocardiogram showed there is severe global hypokinesis of LV. Overall left ventricular systolic function is severely impaired with ejection fraction less than 20%. Chest x-ray showed mild interval worsening in the acute cardiopulmonary disease. Findings are nonspecific and could reflect an acute inflammatory process or pulmonary edema. Short-term follow-up and clinical correlation is recommended. Patient was started on Lasix IV 40 mg every 8 hourly as blood pressure tolerates. Blood pressure is on the lower side. No complaints of dizziness or lightheadedness. Denies any diarrhea. Patient is able to tolerate oral diet slowly. WBC 24.7 hemoglobin 14.1 platelets 305 BUN 26 and creatinine 0.89 AST 695 ALT 86 alk phos 156 and total cholesterol is 206 Cardiology and pulmonary is on board. 05/29/2021 Patient is currently lying in the bed. Saturating well via nasal cannula at 12 L. Patient is diuresing well with IV Lasix. Patient states that her breathing is better today. Chest x-ray showed moderate interval worsening in the bilateral lung infiltrates. Possible developing pleural effusions. Patient was started midodrine due to hypotension. Laboratory data showed WBC trending down to 14.7 hemoglobin 13.1 platelets 217 Sodium 128 potassium 4.4 thyroid 97, BUN 28 and creatinine 0.68, Calcium 8.2 05/30/2021 Patient is in MICU. Currently being continued on IV Lasix and midodrine. Also on milrinone drip. Blood pressure is at the borderline. Diuresing well. However sodium level dropped to 126 today. No complaints of chest pain. Shortness of breath is improving. Patient is able to tolerate 25% of the meal. Complains of nausea. No episodes of vomiting. No abdominal pain or diarrhea. No headache or dizziness or lightheadedness. No dysuria. Laboratory showed WBC trending down to 10.7 hemoglobin 12.4 and platelets 218 Sodium 126, potassium 3.3, chloride 92, BUN 19 and creatinine 0.6 Patient was given 20 mEq of potassium today. 05/31/2021 Patient is in the MICU. Currently sitting in the chair. Awake alert and oriented times instructions better today. Currently requiring oxygen at 2 L via nasal cannula. Patient is able to walk few steps. Patient is being continued on milrinone drip and also on IV Lasix every 8 hourly. Laboratory showed sodium 130 potassium 3.6 bicarb 32 and creatinine level 0.62, WBC 9.9 and hemoglobin 12.6 Chest x-ray showed improved aeration in the mid left lung and bibasilar edema. Pulmonary and cardiology is on board. Discussed with the patient and her at bedside in detail. 06/01/2021 Patient is in the MICU. Awake alert and oriented x3. Blood pressure is on the lower side. Patient is being continued on milrinone drip and also IV Lasix. Currently requiring oxygen at 4 L via nasal cannula. Patient still having sinus tachycardia. Tolerating oral diet. Cardiology is planning for right heart catheterization today. Patient has been afebrile. No nausea vomiting or abdominal pain or diarrhea. No headache or dizziness. Lab data showed WBC 9.9 hemoglobin 12.6 platelets 241 Sodium 130 potassium 3.6 chloride 93 bicarb is 32 BUN 59 creatinine 0.62 06/02/2021 Patient is status post left heart catheterization showed low left and right- sided filling pressures. Normal cardiac output. Patient is in MICU. Currently Lasix has been discontinued and continued milrinone drip. Systolic blood pressures in the upper 90s. Denies any comp laints of dizziness or lightheadedness. Patient has been afebrile. Sitting in the chair comfortably. No cough or sputum production. Chest x-ray today showed developing bibasilar infiltrates. Correlate for atelectasis or pneumonia. Atypical edema is considered less likely. Limited view echocardiogram was done today showed overall left ventricular systolic function severely impaired with ejection fraction 20 to 25%. Laboratory data showed WBC 8.8 hemoglobin 11.3 and platelets 213 Sodium 123 potassium 4.2 chloride 99 BUN 10 and creatinine 0.47 and calcium 8.1 06/03/2021 Patient is currently sitting in the chair comfortably. Awake alert and oriented x3. Requiring oxygen at 2 L via nasal cannula. Blood pressure has been stable with SBP in lower 90s. Patient is being continued on midodrine and cardiology is planning to add digoxin. Chest x-ray showed bibasilar infiltrates worsening in the left lower lobe. Patient is not on any pressor support. Laboratory data showed WBC 9.3 hemoglobin 11.8 and platelets 218 Sodium 132 potassium 4.7 chloride 102 BUN 7 and creatinine 0.46 and liver enzymes are trending down. Cardiology and pulmonary is on board. Patient is being transferred to select care unit today. 06/04/2021 Patient is currently sitting in the chair comfortably. No complaints of chest pain or worsening shortness of breath. Currently on room air at 98%. Heart rate is at 110. Blood pressure 84/55. Patient is on digoxin and also on midodrine. Patient is being continued on aspirin and Effient. Patient states that she feels good. No headache or dizziness or lightheadedness. Laboratory showed sodium 133 potassium 4.6 chloride 102 BUN 7 creatinine 0.49 AST 73 ALT is 52 alk phos 482 and total protein is 5.4 and albumin 2.6. Cardiology and pulmonary is on board. 06/05/2021 Patient is currently sitting in his chair comfortably. No complaints of chest pain. Denies any dizziness or lightheadedness. Blood pressure is on the lower side. Patient is on midodrine and also continued on IV digoxin. No complaints of chest pain or shortness of breath. Tolerating oral diet. No nausea vomiting or abdominal pain or diarrhea. Cardiology and pulmonary is on board. Laboratory showed sodium 134 potassium 4.6 chloride 102 BUN 11 creatinine 0.56. AST 58 and ALT 15 alk phos 518. 06/06/2021 Patient is evaluated today sitting up in the chair, she denies any chest pain, chest pressure, palpitations. She denies any cough or shortness of breath. Barba catheter is removed and she denies any dysuria, frequency or urgency. She denies any nausea vomiting or diarrhea. Blood pressure maintained on the lower side 78/49, she is on midodrine 3 times a day. Heart rate remains elevated 102- 100, she is on IV push digoxin daily. Labs today show a hemoglobin of 11.2, sodium of 129, AST ALT are still elevated at 58 and 50. Cardiology started the patient on a low-dose beta trevin as well as a low-dose Lasix 10 mg by mouth daily, despite hypotension and sodium level of 129. Pending Lifevest for discharge. Abdominal ultrasound completed today revealed an incidental small right pleural effusion with an otherwise unremarkable sonographic examination of right upper quadrant. Current medications reviewed. Constitutional: Denied any fatigue denied any fever. Cardio vascular: denied any chest pain, palpitations Gastrointestinal denied any nausea vomiting Pulmonary: Denied any shortness of breath cough Neurologic denied any new focal deficits All inpatient medications were reviewed and appropriate changes in these medications as dictated in the interval history and assessment and plan. PHYSICAL EXAMINATION: GENERAL: The patient is alert and oriented x3, not in any acute distress. Well developed, well nourished. HEENT: Pupils are round and equally reacting to light. EOMI. No scleral icterus. No conjunctival pallor. Normocephalic, atraumatic. No pharyngeal erythema. No thyromegaly. CARDIOVASCULAR: S1 and S2 present. No murmurs, rubs, or gallops. PULMONARY: Chest is clear to auscultation, no wheezing or crackles. ABDOMEN: Soft, nontender, nondistended, normoactive bowel sounds. No palpable organomegaly. MUSCULOSKELETAL: No joint swelling or deformity. EXTREMITIES: No cyanosis, clubbing, or pedal edema. NEUROLOGICAL: Gross neurological examination did not reveal any focal deficits. SKIN: No rashes. Small bruising to right groin, soft and nontender Assessment and plan Assessment Anterolateral STEMI s/p PCI to the LAD most likely embolic with embolization of additional thrombus in the circumflex. Acute hypoxic respiratory failure. Patient was on BiPAP post procedure. Now on room air. Hypotension due to Cardiogenic shock. Out of ICU, vasopressors discontinued. BP still in the 80's on midodrine. Acute CHF with ejection fraction less than 20% with global hypokinesis. Improved to 20-25%. Hypovolemic hyponatremia due to diuresis. Currently 129, repeat tomorrow. Hypokalemia, repleted Elevated liver enzymes, monitor trends, abd US unremarkable. DVT prophylaxis Plan: Continue with IVP Digoxin, continue with midodrine Monitor blood pressure closely. Small dose of oral lasix and beta trevin added today by cardiology. Continue with aspirin, prasugrel and statins. LDL 122. Pending LifeVest prior to discharge. Repeat CBC and CMP. Cardiology and pulmonary is on board. Continue to follow closely. Objective - Vital Signs Vital signs: Vital Signs Temp 98.0 F 06/06/21 11:48 Pulse 100 06/06/21 14:40 Resp 17 06/06/21 14:40 BP 78/49 06/06/21 14:40 Pulse Ox 98 06/06/21 14:40 Intake & Output 06/05/21 06/06/21 06/06/21 18:59 06:59 18:59 Intake Total 436 200 477 Balance 436 200 477 Weight 39.7 kg Intake: Oral 436 200 477 Other: Voiding Method Toilet Toilet # Voids 1 2 ABP, PAP, CO, CI - Last Documented Arterial Blood Pressure 8/4 Pulmonary Artery Pressure 29/24 Cardiac Output 3.6 Cardiac Index 3.6 - Labs CBC & Chem 7: 06/06/21 09:39 06/06/21 09:39 Labs: Abnormal Lab Results - Last 24 Hours (Table) 06/06/21 06/06/21 Range/Units 09:39 09:39 RBC 3.64 L (3.80-5.40) m/uL Hgb 11.2 L (11.4-16.0) gm/dL Lymphocytes # 0.8 L (1.0-4.8) k/uL Sodium 129 L (137-145) mmol/L Glucose 140 H (74-99) mg/dL Assessment and Plan Time with Patient: Greater than 30
[2021-06-07] MEDS: METOPROLOL TARTRATE 12.5 MG TAB PO SCH ×3 (00:24→20:52)
[2021-06-07] MEDS: MIDODRINE 5 MG TAB PO SCH ×3 (06:20→18:11)
[2021-06-07 07:49] LABS: Basophils # (A) 0.1 k/uL (0-0.2); Basophils % (A) 1 %; Eosinophils # (A) 0.1 k/uL (0-0.7); Eosinophils % (A) 1 %; HCT 38.1 % (34.0-46.0); HGB 12.2 gm/dL (11.4-16.0); Lymphocytes # (A) 1.2 k/uL (1.0-4.8); Lymphocytes % (A) 13 %; MCH 30.7 pg (25.0-35.0); MCV 95.9 fL (80.0-100.0); Mean Platelet Volume 8.4; Monocytes # (A) 0.4 k/uL (0-1.0); Monocytes % (A) 5 %; Neutrophils # (A) 7.5 k/uL (1.3-7.7); Neutrophils % (A) 79 %; Platelet Count 403 k/uL (150-450); RBC 3.97 m/uL (3.80-5.40); RDW 12.7 % (11.5-15.5); WBC 9.5 k/uL (3.8-10.6)
[2021-06-07 08:01] LABS: ALT 48 U/L (4-34); AST 60 U/L (14-36); African American GFR (CKD) >90 (>60 ml/min/1.73 sqM); Albumin 3.1 g/dL (3.5-5.0); Alkaline Phosphatase 682 U/L (38-126); Anion Gap 6 mmol/L; Blood Urea Nitrogen 11 mg/dL (7-17); Calcium 9.2 mg/dL (8.4-10.2); Carbon Dioxide 26 mmol/L (22-30); Chloride 100 mmol/L (98-107); Glucose 89 mg/dL (74-99); Magnesium 2.3 mg/dL (1.6-2.3); Non-African American GFR(CKD) >90 (>60 ml/min/1.73 sqM); Potassium 4.6 mmol/L (3.5-5.1); Sodium 132 mmol/L (137-145); Total Bilirubin 0.4 mg/dL (0.2-1.3); Total Protein 6.2 g/dL (6.3-8.2)
[2021-06-07] MEDS: PRASUGREL 10 MG TAB PO SCH (08:32)
[2021-06-07] MEDS: ASPIRIN 81 MG PO SCH (08:33)
[2021-06-07] MEDS: HEPARIN SODIUM,PORCINE/PF 5,000 UNIT/0.5 ML SYRINGE SQ SCH ×2 (08:33→20:53)
[2021-06-07] MEDS: DIGOXIN 250 MCG/ML 2 ML AMP IVP SCH (08:33)
[2021-06-07] MEDS: FAMOTIDINE 20 MG TAB PO SCH ×2 (08:33→20:53)
[2021-06-07] MEDS: POTASSIUM CHLORIDE ER 20 MEQ TAB.ER PO SCH (08:33)
[2021-06-07] MEDS: FUROSEMIDE 10 MG TAB PO SCH (11:04)
--- NOTE | 2021-06-07 13:38 | P.PN ---
Subjective This is a 60-year-old female who denies any significant past medical history. 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 We have been asked to see the patient in consultation for STEMI. Patient presented emergency department on 05/27/2021. She was admitted with anterolateral STEMI and cardiogenic shock. Echocardiogram showed severe LV dysfunction with ejection fraction 20-25% with no significant improvement with severe anteroapical hypokinesia. Patient underwent left cardiac catheterization with Dr. Smart on 05/27/2021 which revealed 100% LAD stenosis and 95% circumflex stenosis. Patient underwent PCI to LAD and status post embolization of circumflex thrombus downstream into a small caliber distal OM branch. Impella was placed. Patient underwent right heart catheterization on 06/01/[address] Smart which revealed normal cardiac output and low left and right sided filling pressures. Limited echo on 06/02/21 revealed EF of 2025% 06/07/21 Patient seen at bedside, she is in the bedside chair. She denies chest pain. She states her breathing has significantly improved. She is walking around her room without difficulty. She denies chest pain, shortness of breath, lightheadedness, dizziness. Her blood pressure remains low and she is asymptomatic. She was given 10mg PO Lasix yesterday with about 2032mL urine output. Her beta trevin has not been given with the Lasix due to hypotension. Labs revealed sodium 132, potassium 4.6, BUN 11, serum creatinine 0.6, magnesium 2.3, AST 60, ALT 48, alkaline phosphatase 682, albumin 3.1 She is currently maintained on aspirin 81 mg daily, IV digoxin 125mcg daily, midodrine 10 mg 3 times a day, potassium chloride 20meq daily, Effient 10 mg daily, Lasix 10mg daily, and metoprolol tartrate 6.25mg BID. Telemetry reviewed, patient HR has improve sinus mechanism HR [id number] PHYSICAL EXAM: VITAL SIGNS: Reviewed. GENERAL: In No acute distress HEENT:Neck Supple. No JVD. LUNGS: Respirations even and unlabored. Lungs essentially clear to auscultation bilaterally. HEART: Tachycardic Regular rate and rhythm. S1 and S2 heard. ABDOMEN: Soft. Nondistended. Nontender. EXTREMITIES: Normal range of motion. No clubbing or cyanosis. Peripheral pulses intact. No lower extremity edema NEUROLOGIC: Awake and alert. Oriented x 3. ASSESSMENT: Anterolateral STEMI status post proximal LAD PCI likely embolic in etiology with additional thrombus noted and circumflex which had embolized distally Cardiogenic shock, s/p Impella CP placement during catheterization however complicated by no flow to RLE Elevated liver enzymes, likely hepatic congestion Sinus tachycardia Acute on chronic systolic heart failure PLAN: We will hold Lasix today Continue low dose beta trevin metoprolol tartrate 6.25mg BID Decrease midodrine to 5mg TID Monitor patient closely Continue cardiac telemetry Discontinue Effient. Start Plavix 75mg Daily and Eliquis 2.5mg BID. Case management consulted and Eliquis is covered for the patient. Continue statin Discontinue IV digoxin Due to patient risk of sudden cardiac , patient will require a LifeVest prior to Discharge. Case management consulted for assistance in Life Vest Further recommendations based on clinical course Nurse practitioner note has been reviewed by physician. Signing provider agrees with the documented findings, assessment, and plan of care. Objective - Vital Signs Vital signs: Vital Signs Temp 97.4 F L 06/07/21 08:26 Pulse 90 06/07/21 11:57 Resp 15 06/07/21 11:57 BP 86/54 06/07/21 11:57 Pulse Ox 100 06/07/21 11:57 Intake & Output 06/06/21 06/07/21 06/07/21 18:59 06:59 18:59 Intake Total 477 240 Output Total 550 1130 Balance -73 -1130 240 Weight 39.4 kg Intake: Oral 477 240 Output: Urine 550 1130 Other: Voiding Method Toilet Toilet # Voids 2 2 ABP, PAP, CO, CI - Last Documented Arterial Blood Pressure 8/4 Pulmonary Artery Pressure Cardiac Output 3.6 Cardiac Index 3.6 - Labs CBC & Chem 7: 06/07/21 06:29 06/07/21 06:29 Labs: Abnormal Lab Results - Last 24 Hours (Table) 06/07/21 Range/Units 06:29 Sodium 132 L (137-145) mmol/L AST 60 H (14-36) U/L ALT 48 H (4-34) U/L Alkaline Phosphatase 682 H (38-126) U/L Total Protein 6.2 L (6.3-8.2) g/dL Albumin 3.1 L (3.5-5.0) g/dL
--- NOTE | 2021-06-07 15:37 | P.PN ---
Subjective Progress Note Date: 06/07/[address] elevated OR Patient is a 60-year-old female without significant past medical history presents to ER with complaints of chest pain. Patient states that last night she ate chicken Rober for dinner and since then she has been having nauseous and diaphoretic. Patient initially thought it flulike symptoms and food poisoning. Patient is still having heaviness in the chest mainly in the mid retrosternal and heavy pressure which made her come to ER today morning.. He denies any radiation of the pain. Denies any associated shortness of breath. No fever no chills. No cough or sputum production. Denies any recent illnesses. Patient had an EKG in the ER showed ST elevation in the anterior leads and STEMI team was activated. Chest x-ray showed there is some interstitial changes within the lungs. Correlate for pneumonia. Follow-up suggested. Laboratory data showed WBC 13.5 hemoglobin 14.1 platelets 322 lymphocytes 0.7 Sodium 137 potassium 4.3 chloride 105 bicarb is 24 BUN 19 and creatinine 0.56 AST 261 ALT 248 and alk phos 230 troponin 12.3 and coronavirus PCR not detected. 05/28/2021 Patient is in the MICU. Lying in the bed. Awake alert oriented x3. Currently on Ventimask. Patient also shortness of breath and nausea. Currently off pressor support. 2D echocardiogram showed there is severe global hypokinesis of LV. Overall left ventricular systolic function is severely impaired with ejection fraction less than 20%. Chest x-ray showed mild interval worsening in the acute cardiopulmonary disease. Findings are nonspecific and could reflect an acute inflammatory process or pulmonary edema. Short-term follow-up and clinical correlation is recommended. Patient was started on Lasix IV 40 mg every 8 hourly as blood pressure tolerates. Blood pressure is on the lower side. No complaints of dizziness or lightheadedness. Denies any diarrhea. Patient is able to tolerate oral diet slowly. WBC 24.7 hemoglobin 14.1 platelets 305 BUN 26 and creatinine 0.89 AST 695 ALT 86 alk phos 156 and total cholesterol is 206 Cardiology and pulmonary is on board. 05/29/2021 Patient is currently lying in the bed. Saturating well via nasal cannula at 12 L. Patient is diuresing well with IV Lasix. Patient states that her breathing is better today. Chest x-ray showed moderate interval worsening in the bilateral lung infiltrates. Possible developing pleural effusions. Patient was started midodrine due to hypotension. Laboratory data showed WBC trending down to 14.7 hemoglobin 13.1 platelets 217 Sodium 128 potassium 4.4 thyroid 97, BUN 28 and creatinine 0.68, Calcium 8.2 05/30/2021 Patient is in MICU. Currently being continued on IV Lasix and midodrine. Also on milrinone drip. Blood pressure is at the borderline. Diuresing well. However sodium level dropped to 126 today. No complaints of chest pain. Shortness of breath is improving. Patient is able to tolerate 25% of the meal. Complains of nausea. No episodes of vomiting. No abdominal pain or diarrhea. No headache or dizziness or lightheadedness. No dysuria. Laboratory showed WBC trending down to 10.7 hemoglobin 12.4 and platelets 218 Sodium 126, potassium 3.3, chloride 92, BUN 19 and creatinine 0.6 Patient was given 20 mEq of potassium today. 05/31/2021 Patient is in the MICU. Currently sitting in the chair. Awake alert and oriented times instructions better today. Currently requiring oxygen at 2 L via nasal cannula. Patient is able to walk few steps. Patient is being continued on milrinone drip and also on IV Lasix every 8 hourly. Laboratory showed sodium 130 potassium 3.6 bicarb 32 and creatinine level 0.62, WBC 9.9 and hemoglobin 12.6 Chest x-ray showed improved aeration in the mid left lung and bibasilar edema. Pulmonary and cardiology is on board. Discussed with the patient and her at bedside in detail. 06/01/2021 Patient is in the MICU. Awake alert and oriented x3. Blood pressure is on the lower side. Patient is being continued on milrinone drip and also IV Lasix. Currently requiring oxygen at 4 L via nasal cannula. Patient still having sinus tachycardia. Tolerating oral diet. Cardiology is planning for right heart catheterization today. Patient has been afebrile. No nausea vomiting or abdominal pain or diarrhea. No headache or dizziness. Lab data showed WBC 9.9 hemoglobin 12.6 platelets 241 Sodium 130 potassium 3.6 chloride 93 bicarb is 32 BUN 59 creatinine 0.62 06/02/2021 Patient is status post left heart catheterization showed low left and right- sided filling pressures. Normal cardiac output. Patient is in MICU. Currently Lasix has been discontinued and continued milrinone drip. Systolic blood pressures in the upper 90s. Denies any comp laints of dizziness or lightheadedness. Patient has been afebrile. Sitting in the chair comfortably. No cough or sputum production. Chest x-ray today showed developing bibasilar infiltrates. Correlate for atelectasis or pneumonia. Atypical edema is considered less likely. Limited view echocardiogram was done today showed overall left ventricular systolic function severely impaired with ejection fraction 20 to 25%. Laboratory data showed WBC 8.8 hemoglobin 11.3 and platelets 213 Sodium 123 potassium 4.2 chloride 99 BUN 10 and creatinine 0.47 and calcium 8.1 06/03/2021 Patient is currently sitting in the chair comfortably. Awake alert and oriented x3. Requiring oxygen at 2 L via nasal cannula. Blood pressure has been stable with SBP in lower 90s. Patient is being continued on midodrine and cardiology is planning to add digoxin. Chest x-ray showed bibasilar infiltrates worsening in the left lower lobe. Patient is not on any pressor support. Laboratory data showed WBC 9.3 hemoglobin 11.8 and platelets 218 Sodium 132 potassium 4.7 chloride 102 BUN 7 and creatinine 0.46 and liver enzymes are trending down. Cardiology and pulmonary is on board. Patient is being transferred to select care unit today. 06/04/2021 Patient is currently sitting in the chair comfortably. No complaints of chest pain or worsening shortness of breath. Currently on room air at 98%. Heart rate is at 110. Blood pressure 84/55. Patient is on digoxin and also on midodrine. Patient is being continued on aspirin and Effient. Patient states that she feels good. No headache or dizziness or lightheadedness. Laboratory showed sodium 133 potassium 4.6 chloride 102 BUN 7 creatinine 0.49 AST 73 ALT is 52 alk phos 482 and total protein is 5.4 and albumin 2.6. Cardiology and pulmonary is on board. 06/05/2021 Patient is currently sitting in his chair comfortably. No complaints of chest pain. Denies any dizziness or lightheadedness. Blood pressure is on the lower side. Patient is on midodrine and also continued on IV digoxin. No complaints of chest pain or shortness of breath. Tolerating oral diet. No nausea vomiting or abdominal pain or diarrhea. Cardiology and pulmonary is on board. Laboratory showed sodium 134 potassium 4.6 chloride 102 BUN 11 creatinine 0.56. AST 58 and ALT 15 alk phos 518. 06/06/2021 Patient is evaluated today sitting up in the chair, she denies any chest pain, chest pressure, palpitations. She denies any cough or shortness of breath. Barba catheter is removed and she denies any dysuria, frequency or urgency. She denies any nausea vomiting or diarrhea. Blood pressure maintained on the lower side 78/49, she is on midodrine 3 times a day. Heart rate remains elevated 102- 100, she is on IV push digoxin daily. Labs today show a hemoglobin of 11.2, sodium of 129, AST ALT are still elevated at 58 and 50. Cardiology started the patient on a low-dose beta trevin as well as a low-dose Lasix 10 mg by mouth daily, despite hypotension and sodium level of 129. Pending Lifevest for discharge. Abdominal ultrasound completed today revealed an incidental small right pleural effusion with an otherwise unremarkable sonographic examination of right upper quadrant. 06/07/2021 Patient evaluated today by cardiology who started patient on eliquis and Plavix. Patient says her breathing is improved today, she denies any chest pain, chest pressure, dizziness or lightheadedness. Blood pressure is marginal in the 80s, she continues on midodrine. Patient sodium did improve with 10 mg PO Lasix yesterday and is now 132 today. Today Lasix will be held due to hypotension and she will receive metoprolol 6.25 mg twice a day. Heart rate is improving into the low 90s sinus rhythm Continue to monitor patient very closely. Current medications reviewed. ROS Constitutional: Denied any fatigue denied any fever. Cardio vascular: denied any chest pain, palpitations Gastrointestinal denied any nausea vomiting Pulmonary: Denied any shortness of breath cough Neurologic denied any new focal deficits All inpatient medications were reviewed and appropriate changes in these medications as dictated in the interval history and assessment and plan. PHYSICAL EXAMINATION: GENERAL: The patient is alert and oriented x3, not in any acute distress. Well developed, well nourished. HEENT: Pupils are round and equally reacting to light. EOMI. No scleral icterus. No conjunctival pallor. Normocephalic, atraumatic. No pharyngeal erythema. No thyromegaly. CARDIOVASCULAR: S1 and S2 present. No murmurs, rubs, or gallops. PULMONARY: Chest is clear to auscultation, no wheezing or crackles. ABDOMEN: Soft, nontender, nondistended, normoactive bowel sounds. No palpable organomegaly. MUSCULOSKELETAL: No joint swelling or deformity. EXTREMITIES: No cyanosis, clubbing, mild nonpitting +1 lower extremity edema NEUROLOGICAL: Gross neurological examination did not reveal any focal deficits. SKIN: No rashes. Small bruising to right groin, soft and nontender Assessment and plan Assessment Anterolateral STEMI s/p PCI to the LAD most likely embolic with embolization of additional thrombus in the circumflex. Acute hypoxic respiratory failure. Patient was on BiPAP post procedure. Now on room air. Hypotension due to Cardiogenic shock. Out of ICU, vasopressors discontinued. BP still in the 80's on midodrine. Acute CHF with ejection fraction less than 20% with global hypokinesis. Improved to 20-25%. Hypovolemic hyponatremia due to diuresis. Improving up to 132. Hypokalemia, repleted Elevated liver enzymes, monitor trends, abd US unremarkable. DVT prophylaxis Plan: Continue with midodrine Monitor blood pressure closely. Small dose of beta trevin added today by cardiology. Lasix on hold today Eliquis started today per cardiology recommendations Continue with aspirin, prasugrel and statins. LDL 122. Pending LifeVest prior to discharge. Cardiology and pulmonary is on board. Continue to follow closely. Objective - Vital Signs Vital signs: Vital Signs Temp 97.4 F L 06/07/21 08:26 Pulse 104 H 06/07/21 08:26 Resp 16 06/07/21 08:26 BP 82/52 06/07/21 08:26 Pulse Ox 99 06/07/21 08:26 Intake & Output 06/06/21 06/07/21 06/07/21 18:59 06:59 18:59 Intake Total 477 240 Output Total 550 1130 Balance -73 -1130 240 Weight 39.4 kg Intake: Oral 477 240 Output: Urine 550 1130 Other: Voiding Method Toilet Toilet # Voids 2 2 ABP, PAP, CO, CI - Last Documented Arterial Blood Pressure 8/4 Pulmonary Artery Pressure Cardiac Output 3.6 Cardiac Index 3.6 - Labs CBC & Chem 7: 06/07/21 06:29 06/07/21 06:29 Labs: Abnormal Lab Results - Last 24 Hours (Table) 06/07/21 Range/Units 06:29 Sodium 132 L (137-145) mmol/L AST 60 H (14-36) U/L ALT 48 H (4-34) U/L Alkaline Phosphatase 682 H (38-126) U/L Total Protein 6.2 L (6.3-8.2) g/dL Albumin 3.1 L (3.5-5.0) g/dL Assessment and Plan Time with Patient: Greater than 30
[2021-06-07 19:35] LABS: ALT 46 U/L (4-34); AST 67 U/L (14-36); African American GFR (CKD) >90 (>60 ml/min/1.73 sqM); Albumin 3.1 g/dL (3.5-5.0); Alkaline Phosphatase 604 U/L (38-126); Anion Gap 8 mmol/L; Blood Urea Nitrogen 14 mg/dL (7-17); Calcium 9.1 mg/dL (8.4-10.2); Carbon Dioxide 23 mmol/L (22-30); Chloride 101 mmol/L (98-107); Glucose 120 mg/dL (74-99); Non-African American GFR(CKD) >90 (>60 ml/min/1.73 sqM); Potassium 4.7 mmol/L (3.5-5.1); Sodium 132 mmol/L (137-145); Total Bilirubin 0.2 mg/dL (0.2-1.3); Total Protein 6.1 g/dL (6.3-8.2)
[2021-06-07] MEDS: APIXABAN 2.5 MG TABLET PO SCH (20:53)
[2021-06-07 22:31] VITALS: RESP 18
[2021-06-08] MEDS: MIDODRINE 5 MG TAB PO SCH ×2 (06:26→12:41)
[2021-06-08 08:26] VITALS: TEMP 98.1
[2021-06-08] MEDS: APIXABAN 2.5 MG TABLET PO SCH (08:31)
[2021-06-08] MEDS: FAMOTIDINE 20 MG TAB PO SCH (08:31)
[2021-06-08] MEDS: POTASSIUM CHLORIDE ER 20 MEQ TAB.ER PO SCH (08:31)
[2021-06-08] MEDS: HEPARIN SODIUM,PORCINE/PF 5,000 UNIT/0.5 ML SYRINGE SQ SCH (08:31)
[2021-06-08] MEDS: ASPIRIN 81 MG PO SCH (08:31)
[2021-06-08] MEDS: METOPROLOL TARTRATE 12.5 MG TAB PO SCH (08:31)
[2021-06-08] MEDS ORDERED: CLOPIDOGREL 75 MG TAB PO SCH (09:00)
--- NOTE | 2021-06-08 12:14 | P.PN ---
Subjective This is a 60-year-old female who denies any significant past medical history. Patient does not follow with a towerman. We have been asked to see the patient in consultation for STEMI. Patient presented emergency department on 05/27/2021. She was admitted with anterolateral STEMI and cardiogenic shock. Echocardiogram showed severe LV dysfunction with ejection fraction 20-25% with no significant improvement with severe anteroapical hypokinesia. Patient underwent left cardiac catheterization with Dr. Smart on 05/27/2021 which revealed 100% LAD stenosis and 95% circumflex stenosis. Patient underwent PCI to LAD and status post embolization of circumflex thrombus downstream into a small caliber distal OM branch. Impella was placed. Patient underwent right heart catheterization on 06/01/[address] Smart which revealed normal cardiac output and low left and right sided filling pressures. Limited echo on 06/02/21 revealed EF of 2025% 06/08/21 Patient seen at bedside, she is in the bedside chair. She denies chest pain. She states her breathing has significantly improved. She is walking around her room without difficulty. She denies chest pain, shortness of breath, lightheadedness, dizziness. Her blood pressure remains low and she is asymptomatic. She is tolerating the low dose beta trevin. Labs revealed sodium 132, potassium 4.7, BUN 14, serum creatinine 0.69, magnesium 2.3, AST 67, ALT 46, alkaline phosphatase 604, albumin 3.1 She is currently maintained on aspirin 81 mg daily, midodrine 5 mg 3 times a day, potassium chloride 20meq daily, Plavix 75mg daily, Eliquis 2.5mg BID and metoprolol tartrate 6.25mg BID. Telemetry reviewed, patient HR sinus mechanism HR [id number] PHYSICAL EXAM: VITAL SIGNS: Reviewed. GENERAL: In No acute distress HEENT:Neck Supple. No JVD. LUNGS: Respirations even and unlabored. Lungs essentially clear to auscultation bilaterally. HEART: Tachycardic Regular rate and rhythm. S1 and S2 heard. ABDOMEN: Soft. Nondistended. Nontender. EXTREMITIES: Normal range of motion. No clubbing or cyanosis. Peripheral pulses intact. No lower extremity edema NEUROLOGIC: Awake and alert. Oriented x 3. ASSESSMENT: Anterolateral STEMI status post proximal LAD PCI likely embolic in etiology with additional thrombus noted and circumflex which had embolized distally Cardiogenic shock, s/p Impella CP placement during catheterization however complicated by no flow to RLE Elevated liver enzymes, likely hepatic congestion Sinus tachycardia Acute on chronic systolic heart failure PLAN: Continue low dose beta trevin metoprolol tartrate 6.25mg BID Continue midodrine to 5mg TID Recommend triple therapy with Plavix 75mg Daily and Eliquis 2.5mg BID and Aspirin 81mg daily for 2 weeks. After 2 weeks discontinue aspirin Case management consulted and Eliquis is covered for the patient and Eliquis is covered. Statin held due to elevated liver enzymes Due to patient risk of sudden cardiac , patient will require a LifeVest prior to Discharge. Case management consulted for assistance in Life Vest From a cardiology perspective, patient can be discharged home, once LifeVest arrives Further recommendations based on clinical course Nurse practitioner note has been reviewed by physician. Signing provider agrees with the documented findings, assessment, and plan of care. Objective - Vital Signs Vital signs: Vital Signs Temp 98.1 F 06/08/21 08:00 Pulse 106 H 06/08/21 08:00 Resp 18 06/08/21 08:00 BP 83/45 06/08/21 08:00 Pulse Ox 100 06/08/21 08:00 Intake & Output 06/07/21 06/08/21 06/08/21 18:59 06:59 18:59 Intake Total 1480 1000 240 Output Total 1050 1000 400 Balance 430 0 -160 Weight 39.4 kg Intake: Oral 1480 1000 240 Output: Urine 1050 1000 400 Other: Voiding Method Toilet Toilet # Voids 2 ABP, PAP, CO, CI - Last Documented Arterial Blood Pressure 8/4 Pulmonary Artery Pressure Cardiac Output 3.6 Cardiac Index 3.6 - Labs CBC & Chem 7: 06/07/21 06:29 06/07/21 18:50 Labs: Abnormal Lab Results - Last 24 Hours (Table) 06/07/21 Range/Units 18:50 Sodium 132 L (137-145) mmol/L Glucose 120 H (74-99) mg/dL AST 67 H (14-36) U/L ALT 46 H (4-34) U/L Alkaline Phosphatase 604 H (38-126) U/L Total Protein 6.1 L (6.3-8.2) g/dL Albumin 3.1 L (3.5-5.0) g/dL
[2021-06-08 12:40] VITALS: BP 83/52; PULSE 112
--- NOTE | 2021-06-09 13:39 | P.DS ---
Providers Date of admission: 05/27/21 10:45 Attending physician: Pooja Toscano Consults: 05/27/21 12:36 Consult Physician Stat Consulting Provider: Mahin Estes Consult Reason/Comments: pulmonary edema Do you want consulting provider notified?: Already Contacted 05/27/21 19:21 Consult Physician Routine Consulting Provider: Joi Bhagat Consult Reason/Comments: Post Interventional patient Do you want consulting provider notified?: Already Contacted 05/27/21 19:38 Consult Physician Routine Consulting Provider: Jeremías Smart Consult Reason/Comments: re: STEMI Do you want consulting provider notified?: Already Contacted Primary care physician: Stated None Hospital Course: Final Diagnosis Anterolateral STEMI s/p PCI to the LAD most likely embolic with embolization of additional thrombus in the circumflex to a distal branch of the OM. Acute hypoxic respiratory failure secondary to pulmonary edema. Patient was on BiPAP post procedure. Now on room air. Cardiogenic shock, s/p impella placement, however, was removed Hypotension due to Cardiogenic shock. Out of ICU, vasopressors discontinued. BP still in the 80's on midodrine. Acute CHF, systolic dysfunction, with ejection fraction less than 20% with global hypokinesis. Improved to 20-25%. Sinus tachycardia Hypovolemic hyponatremia due to diuresis secondary to overload; initially was hypervolemic hyponatremia. Hypokalemia, repleted Elevated liver enzymes likely hepatic congestion from heart failure hypotension Discharge Disposition Patient is discharged home with a lifevest. Patient is a high risk for readmi ssion, and a high risk for sudden cardiac . Cardiology cleared patient for discharge home today with lifevest on metoprolol, triple therapy of aspirin, plavix, and eliquis for 2 weeks than stop the aspirin. Patient will continue on plavix and eliquis. Patient is also discharged on midodrine. Statin was held on discharge due to elevated liver enzymes and we will trend these outpatient. Patient will follow up closely with cardiology. Hospital Course This is a pleasant 60 year old female with no documented or reported past medical history. Patient presented to the on 05/27/2021 and was admitted as an anterolateral STEMI and cardiogenic shock. Patient underwent a cardiac catheterization with revealed 100% LAD stenosis and 95% circumflex stenosis. Patient had a stent placed to the LAD and embolization of circumflex thrombus downstream into small caliber distal OM branch and an impella was placed which was complicated by decreased blood flow to the RLE. Echocardiogram completed on 05/27/2021 showed severe global hypokinesis of the the left ventricle, with an EF of less than 20%, with basal segment ellie only. on 06/01/2021, the patient underwent a right hearth catheterization which revealed normal cardiac output with loow left and right sided filling pressures. A limited echo was repeated on 06/02/21 which revealed an ejection fraction of 20 to 25%. Status post DE, patient required BiPAP as well as pressor support in the medical ICU. Patient also required milrinone infusion status post removal of impella device due to occlusion and no blood flow to the right lower extremity. Initial chest xray in the ER showed interstitial changes within the lungs, correlate for pneumonia. Follow up chest xray showed diffuse increased infiltrates bilaterally, correlated for ARDS and atypical pneumonia. Chest xray completed on 05/30/2021 was suggestive of CHF versus diffuse pneumonia. Patient has maintained an elevated AST and ALT this admission. Abdomen ultrasound was unremarkable examination of the right upper quadrant with incidental finding of small right pleural effusion. On admission, sodium level was 137, AST 73, ALT 52, WBC 8.2, hgb 12.2, platelets 241. During this hospital stay patient was treated with IV push digoxin daily for sinus tachycardia as well as midodrine 3 times a day for hypotension. Her lower extremities have continued to show some edema. She was given some doses of Lasix as tolerated and will discharge on a small dose of beta trevin. Due to thrombosis patient was discharged on eliquis twice a day in addition to Plavix and aspirin. After 2 weeks aspirin can be discontinued. Patient is also discharged on SL nitro tablets, midodrine 5 mg by mouth 3 times a day. and metoprolol 6.25 mg twice a day. 06/08/2021 Patient was cleared by cardiology today to go home with [facility]. Patient is agreeable to this plan. She will be considered a high risk for readmission and will need close follow up with PCP and cardiology. She just got established in the area and her first appointment with is set for August of 2021. Patient was instructed by that office to follow up with her previous PCP, as they cannot see her even for a hospital follow up until Aug. We will follow up with the patient to ensure she sees a primary provider in the next week. Patient will also follow up with Dr Smart in the office. Labs today show a sodium level of 132, potassium 4.7, chloride 101, bicarb 23. BUN is 14 and creatinine 0.69 her GFR is greater than 90. AST is 67, ALT 46, alk phos 604, albumin 3.1. Vitals on discharge show a heart rate of 106, blood pressure 83/52 she is afebrile at 98% on room air. Lungs are clear to auscultation, S1-S2 auscultated, abdomen is soft and nontender. Patient is alert and oriented 3, focal neurological exam is negative. She does have +1 edema to her lower extremities. Please see medication reconciliation for list of current medications. Thank you for allowing us to participate in the care of this patient. Patient Condition at Discharge: Fair Plan - Discharge Summary Discharge Rx Participant: No New Discharge Prescriptions: New Apixaban [Eliquis] 2.5 mg PO BID 30 Days #60 tablet Metoprolol Tartrate [Lopressor] 6.25 mg PO BID 30 Days #30 tab Clopidogrel [Plavix] 75 mg PO DAILY 30 Days #30 tab Famotidine [Pepcid] 20 mg PO BID #60 tab Aspirin 81 mg PO DAILY tab Nitroglycerin Sl Tabs [Nitrostat] 0.4 mg SUBLINGUAL Q5M PRN #25 tab PRN Reason: Chest Pain Midodrine [ProAmatine] 5 mg PO AC-TID 30 Days #90 tab Discharge Medication List Apixaban [Eliquis] 2.5 mg PO BID 30 Days #60 tablet 06/07/21 [Rx] Aspirin 81 mg PO DAILY tab 06/08/21 [Rx] Clopidogrel [Plavix] 75 mg PO DAILY 30 Days #30 tab 06/08/21 [Rx] Famotidine [Pepcid] 20 mg PO BID #60 tab 06/08/21 [Rx] Metoprolol Tartrate [Lopressor] 6.25 mg PO BID 30 Days #30 tab 06/08/21 [Rx] Midodrine [ProAmatine] 5 mg PO AC-TID 30 Days #90 tab 06/08/21 [Rx] Nitroglycerin Sl Tabs [Nitrostat] 0.4 mg SUBLINGUAL Q5M PRN #25 tab 06/08/21 [Rx] Follow up Appointment(s)/Referral(s): Jeremías Smart DO [STAFF PHYSICIAN] - 1 Week (Office will call you with an appointment) Андрей Hooks MD [REFERRING] - 3 Days (Need to follow up with primary care physician you saw prior before swithing PCP's. They can't take you any sooner than August. ) None,Stated [Primary Care Provider] - 1-2 days Ambulatory/Diagnostic Orders: Complete Blood Count w/diff [LAB.AMB] Time Frame: 2 Days, Location: None Selected Comprehensive Metabolic Panel [LAB.AMB] Time Frame: 2 Days, Location: None Selected Patient Instructions/Handouts: Famotidine (By mouth), Furosemide (By mouth), Aspirin (By mouth), Heparin (By injection), Midodrine (By mouth), Prasugrel (By mouth) Activity/Diet/Wound Care/Special Instructions: Cardiology Instructions 1. Aspirin as anti-platelet therapy - Take 81mg Daily for 2 weeks. Then stop. 2. Anti-platelet Therapy. -In addition to aspirin, you will take ONE of the following anti-platelet medications daily. This will help prevent a clot from forming in your stent: Plavix (clopidogrel) -You will need to take your anti-platelet medicine every day for 12 months -Please consult your heart doctor before you stop this medicine. -They may want you to continue for a longer period of time. 3. Blood Thinner- you will also be in Eliquis 2.5mg BID to prevent clot formation Other Medications: -Beta trevin. Is a medication that protects your heart from stress and can prevent future heart attacks. It can slow your heart rate. It can take weeks for your body to get used to a beta trevin. The dose may need to be changed a few times as your body adjusts Do not stop taking these medicines without talking to your doctor. -Take all other medicines as directed by your doctor. Do not take any extra aspirin or ibuprofen. They can increase your risk of bleeding. Many [id number] drugs contain aspirin. If you are unsure about what the drug contains, check with your pharmacist before taking it. Contact your doctor right away or go to the nearest hospital Emergency Room if you have: -Severe angina or chest pain. (This may be a sign of a problem with your stent.) -Excessive bruising, blood in urine/stool or black tarry stools. Follow up with Dr. Smart at [facility], [place] [phone] Discharge Disposition: HOME SELF-CARE
== END 2021-06-08 16:13 | disposition home health service (06) | DRG 216 ==
LOC: EC 10:15 → 2SICU 10:45 → 3SCARD 06-03 15:55
PROVIDERS: ADMIT Internal Medicine; ATTEND Internal Medicine
DX: I21.09 ST elevation (STEMI) myocardial infarction involving other coronary artery of anterior wall (principal); R57.0 Cardiogenic shock; I50.21 Acute systolic (congestive) heart failure; J80 Acute respiratory distress syndrome; R64 Cachexia; I82.411 Acute embolism and thrombosis of right femoral vein; E87.1 Hypo-osmolality and hyponatremia; Z68.1 Body mass index [BMI] 19.9 or less, adult; K76.1 Chronic passive congestion of liver; Z20.822 Contact with and (suspected) exposure to COVID-19; I25.5 Ischemic cardiomyopathy; I25.10 Atherosclerotic heart disease of native coronary artery without angina pectoris; E86.1 Hypovolemia; E87.6 Hypokalemia; R00.0 Tachycardia, unspecified; T50.2X5A Adverse effect of carbonic-anhydrase inhibitors, benzothiadiazides and other diuretics, initial encounter; Z71.3 Dietary counseling and surveillance; Z80.6 Family history of leukemia; Z81.1 Family history of alcohol abuse and dependence
CPT/HCPCS: 36415; 36600; 71045; 76705; 76937; 80048; 80053; 80061; 80162; 82805; 82810; 83036; 83735; 84484; 85018; 85025; 85610; 85730; 87635; 93005; 93306; 93308; 93451; 93458; 94660; 94760; 99291